=== PATIENT | male | born 1960 | race Caucasian/White ===

== ENCOUNTER 2020-03-17 08:53 | Observation (INO) | payer OTHER, SELFPAY ==
[2020-03-17] VITALS (10 sets, daily range): BP systolic 142–174; BP diastolic 89–105; PULSE 96–130; RESP 14–20; TEMP 36.4–37; O2SAT 95–99; BMI 32.6; BMI 32.5
--- NOTE | 2020-03-17 09:06 | EKG12_ITS ---
Test Reason : DYSRHYTHMIA Blood Pressure : / mmHG Vent. Rate : 122 BPM Atrial Rate : 122 BPM P-R Int : 152 ms QRS Dur : 094 ms QT Int : 332 ms P-R-T Axes : 041 012 003 degrees QTc Int : 473 ms Sinus tachycardia Otherwise normal ECG Confirmed by IKER ELLSWORTH, PENNY ([id number]), sound editor ANGY HUFF ([id number]) on 03/20/2020 8:19:54 AM Referred By: LUIS Confirmed By:PENNY DONG MD
[2020-03-17] MEDS: 0.9% Normal Saline 1,000 ML 1000 ML IV (09:17)
--- NOTE | 2020-03-17 09:18 | ED.VIS.GEN ---
History of Present Illness Chief Complaint: Palpitations Informant: Patient Narrative: Patient is a 59-year-old male with a past medical history of CAD, hypertension who presents to the emergency department for palpitations. He states started yesterday he felt like his heart was racing. He did check it and it got up to 160 at one point. He denies any other associated symptoms including any shortness of breath, fatigue, chest pain. He has never had this happen before in the past. He denies any abdominal pain or nausea/vomiting. No back pain. He did have some bilateral swelling in his legs a few days ago but this has since resolved. No history of DVT/PE. States he might of been drinking a little bit less than normal lately but otherwise has been eating appropriately. Denies any headache or lightheadedness. No vision changes. He has not been ill recently with any fever/chills or any cough, cold, congestion. Past Medical History - Allergies and Home Meds Allergies/Adverse Reactions: Allergies lisinopril Allergy (Verified 03/17/20 08:56) Other Primary Care Physician: Viral Geiger III, MD [Primary Care Provider] - Prior records reviewed: Yes Past Medical History: - - CAD with stent placed, hypertension Smoking Status: Former smoker Alcohol: None Drugs: None - Family History Paternal Family History: Reports: High Cholesterol Review of Systems All systems negative except as indicated General: Denies: Chills, Fever, Sweats Eyes: Denies: Visual changes - bilaterally, Diplopia ENT: Denies: Rhinorrhea, Sore throat Cardiovascular: Reports: Palpitations, Heart racing. Denies: Chest pain Respiratory: Denies: Dyspnea, Cough, Dyspnea on exertion Gastrointestinal: Denies: Abdominal pain, Nausea, Vomiting, Diarrhea, Melena, Hematochezia Genitourinary: Denies: Dysuria, Hematuria, Frequency Musculoskeletal: Denies: Back pain, Extremity Pain Skin: Denies: Rash, Wounds Neurological: Denies: Headache, Weakness, Numbness Physical Exam Vital Signs/Narrative: Vital Signs Temp Pulse Resp BP Pulse Ox 03/17/20 08:54 97.6 F L 130 H 20 H 152/101 H 98 Inital Vital Signs reviewed: Yes General: Well nourished, Well developed, No Acute Distress Head: Normocephalic, Atraumatic Eyes: Perrl, EOMI ENT: Moist mucous membranes, No rhinorrhea Neck: Supple, Nontender Cardiovascular: Regular rhythm, Tachycardia, Murmur Respiratory: No distress, CTA bilaterally, Chest nontender Abdomen: Soft, Nontender, Nondistended, Normal bowel sounds Back: Nontender, Normal Inspection Extremities: Nontender, No edema Skin: Normal color, No rash Neurological: Alert, Oriented x3, Cranial nerves II-XII grossly intact, Normal Strength, Normal Sensation Psychological: Normal affect, Normal Mood Diagnostic/Tx/Re-eval - EKG Initial EKG Interpretation: - - Rate 122 bpm in sinus tachycardia. Normal intervals. Normal axis. No ST elevations or depressions appreciated. No T wave abnormalities. No prior EKG for comparison. - Medical Decision Making Patient presents to the emergency department for palpitations. Upon arrival to the emerge department he is tachycardic. Otherwise no chest pain or shortness of breath. Will obtain basic lab work along with chest x-ray. Physical exam is benign except for the tachycardia. Lab work showed the patient to be hypokalemic. We will replace with IV and oral potassium at this time. Magnesium is slightly low so we will replace this to. Will bring into the hospital for further evaluation and management. He has been stable throughout ED stay. He is agreeable to staying in the hospital at this time. ED Disposition - Plan for ED Patient: Diagnosis: Hypokalemia, Palpitations, Tachycardia Referrals: Viral Geiger III, MD [Primary Care Provider] -
--- NOTE | 2020-03-17 09:20 | RAD_ITS ---
STUDY: X-RAY CHEST REASON FOR EXAM: Male, 59 years old. Chest pain and palpitations x 1 day, stent 5 years ago, -- takes HBP medications TECHNIQUE: Single AP portable view of the chest. COMPARISON: Comparison is made with prior study April 18, 2014. FINDINGS: EKG electrodes are seen. There is elevation of the right hemidiaphragm. Stable calcified granuloma in the right midlung. There is no demonstrated pleural abnormality. Normal size heart. Normal mediastinum and parth. Normal visualized pulmonary arteries. Normal visualized aortic arch and descending thoracic aorta. Normal visualized thoracic spine. Normal visualized ribs, clavicles, and shoulders. Small hiatal hernia. RAD/Chest 1 View (Portable) IMPRESSION: No acute abnormality is seen. Electronically Signed: Paulie Acuña, at 9:51 EDT , Service support ,
[2020-03-17 09:24] LABS: Absolute Lymphocyte Count 1.88 X10^3/uL (0.83-4.51); Absolute Neutrophil Count 4.2 X10^3/uL (2.0-7.7); Basophil# 0.04 X10^3/uL; Basophil% 0.6 % (0-1); Eosinophil# 0.29 X10^3/uL; Eosinophils% 4.2 % (0-5); Hemoglobin 14.1 g/dL (13.0-16.5); Lymphocyte # 1.88 X10^3/ul (4.0); Lymphocyte % 27.1 % (19-41); Mean Corp Hgb Conc 33.6 g/dL (32-36); Mean Corpuscular Volume 83.5 fL (80-94); Mean Platelet Vol. 10.1 fl (6.2-12.0); Monocyte% 7.2 % (0-10); NRBC Flagged by Analyzer 0 % (0-5); Neutrophil % 60.6 % (47-70); Platelet Count 257 K/mm3 (150-450); RBC Distribution Width CV 13.4 % (11.6-14.6); RBC Distribution Width SD 39.8 fl (35.1-43.9); Red Blood Count 5.03 M/mm3 (4.6-6.2); White Blood Count 6.9 K/mm3 (4.4-11.0)
[2020-03-17 09:50] LABS: Anion Gap 8 (5-15); BUN 17 mg/dL (7-18); Calcium,Total 8.9 mg/dL (8.5-10.1); Chloride 102 mmol/L (98-107); Creatinine, Serum 1.13 mg/dL (0.70-1.30); EST Glomerular Filtration Rate 71 mL/min (>60); Est Glom Filt Rate - Afr Amer 85 mL/min (>60); Estimated Creatinine Clearance 65.81 ml/min; Glucose 178 mg/dL (74-106); Magnesium 1.8 mg/dL (1.6-2.6); Potassium 2.6 mmol/L (3.5-5.1); Sodium Level 138 mmol/L (136-145)
[2020-03-17] MEDS: Potassium Chloride 10mEq/100mL 10 MEQ/100 ML IV.SOLN. 100 MEQ IV BOLUS ×2 (10:28→12:51)
--- NOTE | 2020-03-17 11:06 | ECHOCS_ITS ---
Reason For Study: Palps Procedure This was a 2D Doppler, Color Flow transthoracic echocardiogram. The study was technically difficult. Exam performed portable in patient room. Left Ventricle Normal LV size. Left ventricular systolic function is normal. The estimated ejection fraction is 65 %. Stage 1 diastolic dysfunction. No regional wall motion abnormalities noted. Right Ventricle Normal RV size. Normal systolic function. Atria Normal left atrium. Normal right atrium. Mitral Valve Normal mitral valve. Tricuspid Valve Normal tricuspid valve. Aortic Valve Normal aortic valve. Pulmonic Valve Normal pulmonic valve. Great Vessels Normal aortic root. The pulmonary artery is normal size. Normal inferior vena cava. Pericardium/Pleural No pericardial effusion. Medication Performed a rapid injection of agitated mix of 9 cc saline and 1cc air to assess for atrial septal defect. Diluted definity 2ml given slow IV push to enhance endocardial definition. MMode/2D Measurements & Calculations LVIDd: 4.1 cm IVSd: 1.1 cm Ao root diam: 3.1 cm LVIDs: 2.3 cm LVPWd: 0.92 cm RVDd: 3.2 cm FS: 44.3 % LAV(MOD-bp): 40.0 ml LA A4 area: 17.3 cm2 LA dimension(2D): 3.7 cm LAV(MOD-bp) Indexed: 19.5 ml/m2 LAV(MOD-sp2): 32.0 ml LAV(MOD-sp4): 49.1 ml RA A4 area: 9.0 cm2 Doppler Measurements & Calculations MV E max timoteo: 90.7 cm/sec Lat Peak E' Timoteo: 10.9 cm/sec Med Peak E' Timoteo: 6.5 cm/sec MV A max timoteo: 129.2 cm/sec E/E' lat: 8.3 E/E' med: 14.0 MV E/A: 0.70 Ao V2 max: 199.1 cm/sec LV V1 max: 182.5 cm/sec PA V2 max: 166.4 cm/sec Ao max P.9 mmHg LV V1 max P.3 mmHg Interpretation Summary Normal LV size. Left ventricular systolic function is normal. The estimated ejection fraction is 65 %. Stage 1 diastolic dysfunction. Contrast injection was performed. Ordering Physician: Luz Castellanos Referring Physician: ELI Geiger M.D. Performed By: Francheska Rivera RDCS
[2020-03-17] MEDS: 0.9% Normal Saline 1,000 ML 50 ML IV (12:13)
--- NOTE | 2020-03-17 12:49 | HP.PCM_ITS ---
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 He states that he went to bed but had a hard time falling asleep. when he awoke this am his was still feeling his heart racing and was having palpitations. He denies any significant caffeine intake, has had no changes in his meds and denies CP or SOB associated with this. He states that it is just a funny feeling. He has missed no doses of his medications. His CBC was completely normal. His BMP was unremarkable other than a K of 2.6. His Mag was WNL. His troponin was WNL. His EKG showed sinus tachycardia, He was afebrile, sats were 97% on RA and his BP was a bit elevated. Past Medical History Past Medical History (Chronic Problems): Chronic Problems CAD (coronary artery disease) (Chronic) stent RCA Prostate cancer (Chronic) Gout (Chronic) Dyslipidemia (Chronic) HTN (hypertension) (Chronic) Allergies lisinopril Allergy (Verified 03/17/20 08:56) Other Home Medications: Ambulatory Orders Medication Instructions Recorded Allopurinol [Zyloprim] 100 mg PO DAILYCM 04/18/14 Amlodipine [Norvasc] 10 mg PO DAILY 04/18/14 Losartan Potassium [Cozaar] 100 mg PO DAILY 04/18/14 Omeprazole [Prilosec] 40 mg PO DAILY 04/18/14 Aspirin [Aspirin, Baby] 81 mg PO DAILY 03/17/20 Atenolol/Chlorthalidone [Tenoretic 1 tab PO DAILY 03/17/20 100 (beta kym)] Atorvastatin Calcium [Lipitor] 80 mg PO DAILY 03/17/20 Fluticasone Propionate [Flovent 1 puff INHALATION BID 03/17/20 Hfa] Metformin HCl [Glucophage Xr] 500 mg PO BID 03/17/20 Potassium Chloride [Klor-Con M20] 20 meq PO DAILY 03/17/20 Surgical History: - - Stent 2013 cristo [facility] Lives: Spouse/ Significant Other Smoking Status: Former smoker Tobacco Use: Non-smoker Alcohol: None Drugs: None - *Family History Paternal History Items: High Cholesterol Review of Systems Constitutional: Denies: Anorexia, Chills, Fever, Night Sweats, Malaise, Weakness, Weight Change, Fatigue Eyes: Denies: Blurred vision, Cataracts, Conjunctivae Inflammation, Double vision, Drainage, Eyelid Inflammation, Pain, Redness, Vision Change HEENT: Denies: Difficulty Hearing, Difficulty Swallowing, Dysphasia, Ear Pain, Eye Pain, Hard of Hearing, Head Aches, Hearing Changes, Nasal bleeding, Nasal Congestion, Post Nasal Drip, Sinus Congestion, Sinus Drainage, Sore Throat Cardiovascular: Reports: Palpitations. Denies: Chest Pain, Claudication, Chest Pressure, Chest Tightness, Edema, Heaviness, Light Headedness, Orthopnea, Paroxysmal Noc. Dyspnea, Syncope Respiratory: Denies: Cough, Hemoptysis, Pleuritic Pain, Shortness of Breath, Shortness of breath at rest, Shortness of breath upon exertion, Sputum production, Wheezing Gastrointestinal: Denies: Abdominal Pain, Constipation, Diarrhea, Dyspepsia, Hematemesis, Hematochezia, Nausea, Melena, Vomiting Genitourinary: Denies: Dysuria, Frequency Musculoskeletal: Denies: Back Pain, Joint Pain, Joint stiffness, Joint swelling, Joint Tenderness, Neck Pain Skin: Denies: Dryness, Jaundice, Lesions, Pruritis, Rash, Skin Changes, Wounds Neurological: Denies: Balance problems, Blurred vision, Double vision, Change in Speech, Slurred speech, Confusion, Difficulty swallowing, Focal weakness, Headaches, Incoordination, Numbness, Tingling, Tremor, Seizures Psychiatric: Denies: Anxiety, Depression, Homicidal Ideations Endocrine: Denies: Change in Body Habitus, Heat/ Cold Intolerance, Polydipsia Hematologic/ Lymphatic: Denies: Adenopathy, Anemia, Easy Bruising, Easy Bleeding, Petechiae, Purpura VTE Information - Inpt Only VTE Present on Admission: No VTE Mechan Device Prophylaxis: None VTE Pharm Prophylaxis ordered?: No Reason prophylaxis not ordered:: Procedure Not Indicated Patient Problems: Active and Suspected Problems Hypokalemia (Acute) Palpitations (Acute) Tachycardia (Acute) - Physical Exam Vitals/I&O's: Vital Signs Temp Pulse Resp BP Pulse Ox 98.3 F 104 H 16 164/89 H 97 03/17/20 11:14 03/17/20 11:14 03/17/20 11:14 03/17/20 11:14 03/17/20 11:14 Oxygen Flow Rate (L/min) 2 Oxygen Delivery Method Room Air Weight: 94.1 kg Body Mass Index (BMI) 32.5 Intake and Output for Last 24 Hours 03/15/20 03/16/20 03/17/20 23:59 23:59 23:59 Intake Total 1100 / 1100 Balance 1100 / 1100 General: Alert, Oriented x3, Cooperative, No apparent distress, Well developed, Well nourished, - - Middle aged male sitting up in bed, at bedside HEENT: Atraumatic, PERRLA, EOMI, Normocephalic, EAC Clear Oral: Moist Mucosa, No Gingival or Mucosal Lesions/ Ulcerations Neck: Supple, No JVD, Negative Carotid Bruits, Negative Hepatojugular Reflux, No Nodes, No Nuchal Rigidity, Trachea Midline, Thyroid Normal Size and Texture Lungs: Clear to auscultation, Normal air movement, No rhonchi, No wheeze, No rales Cardiovascular: Regular Rhythm, Normal S1, Normal S2, No murmurs, No Ectopic Activity, No rub noted, No Gallop, Tachycardic Abdomen: Bowel Sounds Present, Soft, Non Tender, Non-Distended, No Hepato- splenomegaly, Obese, No hernias noted Extremities: No clubbing, No cyanosis, No edema, Capillary Refill Less than 3 Seconds, Peripheral Pulses Normal Skin: No rashes, No breakdown Musculoskeletal: No Tenderness to Palpation of Joints or Extremities, No Muscle Wasting Lymphatic: No Cervical, Supraclavicular, or Inguinal Adenopathy, Cervical Adenopathy Neurological: Cranial nerves II-XII grossly intact, Motor Exam 5/5 strength throughout, Muscle tone normal, Sensory exam intact to light touch and pain, Coordination normal, - - 3+ reflexes, fine tremor with exam Psych/Mental Status: Normal Affect, Appropriate, Alert and oriented to time, place, person, mood and affect Laboratory Results 03/17/20 09:10: WBC 6.9, RBC 5.03, Hgb 14.1, Hct 42.0, MCV 83.5, MCH 28.0, MCHC 33.6, RDW Std Deviation 39.8, RDW Coeff of Fantasma 13.4, Plt Count 257, MPV 10.1, Immature Gran % (Auto) 0.300, Neut % (Auto) 60.6, Lymph % (Auto) 27.1, [place] % (Auto) 7.2, Eos % (Auto) 4.2, Baso % (Auto) 0.6, Absolute Neuts (auto) 4.2, Absolute Lymphs (auto) 1.88, Nucleated RBC % 0 03/17/20 09:10: Sodium 138, Potassium 2.6 L*, Chloride 102, Carbon Dioxide 28.0, Anion Gap 8, BUN 17, Creatinine 1.13, Estim Creat Clear Calc 65.81, Est GFR (MDRD) Af Amer 85, Est GFR (MDRD) Non-Af 71, BUN/Creatinine Ratio 15.0, Glucose 178 H, Calcium 8.9, Magnesium 1.8, Troponin I < 0.015 03/17/20 09:10: TSH Pending Current Medications Acetaminophen (Tylenol) 650 mg PO Q6H PRN PRN PRN Reason: Pain Score 1-10/Temp > 100.7 F Al Hydroxide/Mg Hydroxide (Mylanta Ii) 30 ml PO Q6H PRN PRN PRN Reason: Gastric Burning [facility] Amlodipine Besylate (Norvasc) 10 mg PO DAILY [facility] Aspirin (Aspirin, Baby) 81 mg PO DAILY [facility] Atenolol/Chlorthalidone (Tenoretic 100 Tablet) 1 tab PO DAILY [facility] Atorvastatin Calcium (Lipitor) 80 mg PO DAILY [facility] Dextrose (D50w Syringe) 0 gm IV X1 PRN; Protocol PRN Reason: Hypoglycemia Glucagon () 1 mg IM .X1 PRN PRN Reason: Hypoglycemia Sodium Chloride () 1,000 mls @ 50 mls/hr IV .Q20H [place] Stop: 03/17/20 23:07 Last Admin: 03/17/20 12:13 Dose: 50 mls/hr Documented by: Sodium Chloride () 250 mls @ 15 mls/hr IV .[id number] PRN PRN Reason: Saline Flush Sodium Chloride () 250 mls @ 15 mls/hr IV .[id number] PRN PRN Reason: Additional IVPB Infusion Losartan Potassium (Cozaar) 100 mg PO DAILY [facility] Melatonin (Melatonin) 3 mg PO QHS PRN PRN PRN Reason: INSOMNIA Metformin HCl (Glucophage Xr) 500 mg PO BID [facility] Non-Formulary Medication (Fluticasone Propionate [Flovent Hfa]) 1 puff inhalation BID [facility] Non-Formulary Medication (Potassium Chloride [Klor-Con M20]) 20 meq PO DAILY [facility] Pantoprazole Sodium (Protonix) 20 mg PO DAILY [facility] Sodium Chloride () 10 - 40 ml IV UD PRN PRN Reason: SALINE FLUSH Assessment/Plan All Active Problems Hypokalemia (Acute) Palpitations (Acute) Tachycardia (Acute) NSTEMI (non-ST elevated myocardial infarction) (Acute) Palpitations/Tachycardia -continue home BB -replace electrolytes -Check Echo -Check TSH -check tox -pt denies drugs or any recent caffeine intake -if persists my need to consider w/u for pheo as BP is up as well Hypokalemia -Mag WNL -2 gm mag given in ED -40 po and 20 IV mag given in ED -repeat BMP later today -continue IVF for now x 12 hrs -BMP in am HTN/HPL/CAD -PCI in 2013 at [facility] -continue Norvasc -continue Atenolol/Chlorthalidone/Losartan DM-2 -Continue Metformin -BGT q AC/HS GERD -PPI Gout -Allopurinol DVT Prophylaxis -low risk and none needed Code Status -Full Inpatient E&M: 06746 Init Hosp L3
[2020-03-17 12:53] LABS: Thyroid Stim Hormone (TSH) 1.48 uIU/mL (0.358-3.74)
[2020-03-17 16:59] LABS: Anion Gap 6 (5-15); BUN 14 mg/dL (7-18); BUN/Creat Ratio 14.4 RATIO (10-20); Calcium,Total 8.8 mg/dL (8.5-10.1); Chloride 108 mmol/L (98-107); Creatinine, Serum 0.97 mg/dL (0.70-1.30); EST Glomerular Filtration Rate 84 mL/min (>60); Est Glom Filt Rate - Afr Amer 101 mL/min (>60); Estimated Creatinine Clearance 76.66 ml/min; Glucose 104 mg/dL (74-106); Potassium 3.2 mmol/L (3.5-5.1); Sodium Level 142 mmol/L (136-145)
[2020-03-17] MEDS: metFORMIN HCl 500 MG Tablet PO (17:40)
[2020-03-17] MEDS: Aspirin 81 MG TAB.CHEW PO (17:41)
[2020-03-17 17:54] LABS: Amphetamine Urine VISTA NEGATIVE (<1000 ng/mL); Barbiturate Urine VISTA NEGATIVE (< 200 ng/mL); Benzodiazepine Urine VISTA NEGATIVE (< 200 ng/mL); Cocaine Urine VISTA NEGATIVE (< 300 ng/mL); Ecstacy Urine VISTA NEGATIVE (< 500 ng/mL); Methadone Urine VISTA NEGATIVE (< 300 ng/mL); PCP Urine VISTA NEGATIVE (< 25 ng/mL); THC Urine VISTA NEGATIVE (< 50 ng/mL); Vista UDS pH Range 6
[2020-03-17] MEDS: Atorvastatin Calcium 80 MG Tablet PO (21:01)
[2020-03-17] MEDS: MELATONIN 3 MG TABLET PO (23:07)
[2020-03-18 02:59] VITALS: PULSE 72
[2020-03-18 03:15] VITALS: BP 151/87; PULSE 78; RESP 12; TEMP 37; O2SAT 96
[2020-03-18 06:43] LABS: Absolute Lymphocyte Count 1.36 X10^3/uL (0.83-4.51); Absolute Neutrophil Count 4.6 X10^3/uL (2.0-7.7); Basophil# 0.04 X10^3/uL; Basophil% 0.6 % (0-1); Eosinophil# 0.22 X10^3/uL; Eosinophils% 3.2 % (0-5); Hematocrit 40.1 % (40-54); Hemoglobin 13.2 g/dL (13.0-16.5); Lymphocyte # 1.36 X10^3/ul (4.0); Lymphocyte % 19.9 % (19-41); Mean Corp Hgb Conc 32.9 g/dL (32-36); Mean Corpuscular Hgb 28.4 pg (27.0-32.0); Mean Corpuscular Volume 86.2 fL (80-94); Mean Platelet Vol. 10.4 fl (6.2-12.0); Monocyte# 0.57 X10^3/uL; Monocyte% 8.3 % (0-10); NRBC Flagged by Analyzer 0 % (0-5); Neutrophil # 4.63 X10^3/uL (2.7-7.7); Neutrophil % 67.7 % (47-70); Platelet Count 237 K/mm3 (150-450); RBC Distribution Width CV 13.4 % (11.6-14.6); RBC Distribution Width SD 41.4 fl (35.1-43.9); Red Blood Count 4.65 M/mm3 (4.6-6.2); White Blood Count 6.8 K/mm3 (4.4-11.0)
[2020-03-18 06:49] VITALS: PULSE 58
[2020-03-18] MEDS: Allopurinol 100 MG Tablet PO (07:59)
[2020-03-18] MEDS: metFORMIN HCl 500 MG Tablet PO (07:59)
[2020-03-18 08:23] LABS: AST(SGOT) 17 U/L (15-37); Alanine Aminotransfer ALT/SGPT 24 U/L (16-61); Albumin, Serum 3.1 g/dL (3.2-5.0); Alkaline Phosphatase 66 U/L (45-117); Anion Gap 9 (5-15); BUN 12 mg/dL (7-18); BUN/Creat Ratio 13.1 RATIO (10-20); Bilirubin, Direct 0.13 mg/dL (0.00-0.30); Calcium,Total 8.2 mg/dL (8.5-10.1); Chloride 107 mmol/L (98-107); Creatinine, Serum 0.92 mg/dL (0.70-1.30); EST Glomerular Filtration Rate 90 mL/min (>60); Est Glom Filt Rate - Afr Amer 109 mL/min (>60); Estimated Creatinine Clearance 80.83 ml/min; Globulin 3.3 g/dL (2.2-4.2); Glucose 98 mg/dL (74-106); Magnesium 2.1 mg/dL (1.6-2.6); Phosphorus 3.2 mg/dL (2.5-4.9); Potassium 3.3 mmol/L (3.5-5.1); Protein, Total 6.4 g/dL (6.4-8.2); Sodium Level 141 mmol/L (136-145)
--- NOTE | 2020-03-18 09:04 | DCINST_ITS ---
- Discharge Diagnoses Current Active Problems: Current Active and Chronic Problems Hypokalemia (Acute) Palpitations (Acute) Tachycardia (Acute) You will use the following diet at home:: Calorie/Carbohydrate Controlled (specify 1200, 1400, etc), Cardiac Your food should be the consistency of: Regular Your liquids should be the consistency of: Regular/Thin Discharge Activity: Return to Normal Activity, No Restrictions May resume sexual activity in: No Restrictions Call your doctor if you observe: Fever of 101 or Higher, Shortness of breath, Dizziness, Fainting spells, Chest pain Additional Instructions: Please call PCP on Friday for repeat basic metabolic profile Allergies/Adverse Reactions: Allergies lisinopril Allergy (Verified 03/17/20 08:56) Other Medications to take at Discharge Allopurinol [Zyloprim] 100 mg PO DAILYCM 04/18/14 Amlodipine [Norvasc] 10 mg PO DAILY 04/18/14 Losartan Potassium [Cozaar] 100 mg PO DAILY 04/18/14 Omeprazole [Prilosec] 40 mg PO DAILY 04/18/14 Aspirin [Aspirin, Baby] 81 mg PO DAILY 03/17/20 Atenolol/Chlorthalidone [Tenoretic 100 (beta kmy)] 1 tab PO DAILY 03/17/20 Atorvastatin Calcium [Lipitor] 80 mg PO DAILY 03/17/20 Fluticasone Propionate [Flovent Hfa] 1 puff INHALATION BID 03/17/20 metFORMIN HCl [Glucophage] 500 mg PO BIDCM 03/17/20 Budesonide Aerosol [Pulmicort Respules] 0.5 mg INHALATION Q12H.RT ampul.neb. 03/18/20 Chlorthalidone [Hygroton] 25 mg PO DAILY tab 03/18/20 Potassium Chloride [Klor-Con M20] 20 meq PO DAILY 30 Days #30 03/18/20 The following prescriptions were given: Potassium Chloride [Klor-Con M20] 20 meq PO DAILY 30 Days #30 Prescription Printed Primary Care Physician: Viral Geiger III, MD [Primary Care Provider] - Please follow up with your Primary Care Physician in: 1 week Test Results: Test results from this visit will be discussed in further detail at your follow- up appointment, if applicable.
--- NOTE | 2020-03-18 09:06 | DS.PCM_ITS ---
Discharge Date and Diagnosis - Problem List Patient Problems: Active and Suspected Problems Hypokalemia (Acute) Palpitations (Acute) Tachycardia (Acute) Date of Admission: 03/17/20 Date of Discharge: 03/18/20 - Primary Discharge Diagnosis Acute Problems: Active Problems Hypokalemia (Acute) Palpitations (Acute) Tachycardia (Acute) - Secondary Discharge Diagnosis Chronic Problems: Chronic Problems CAD (coronary artery disease) (Chronic) stent RCA Prostate cancer (Chronic) Gout (Chronic) Dyslipidemia (Chronic) HTN (hypertension) (Chronic) Hospital Course and Treatment Imaging Results: ECHO 03/17/2020 -Stage 1 Diastolic Dysfunction -EF 65% None Operations: None Procedures: 2-D Echocardiogram Summary of Care Provided: The patient is a 59 year old M who worked outside all day on 03/16 and was feeling well until that evening when he noted palpitations and that his heart was racing. He stated that he went to bed but had a hard time falling asleep. When he awoke on the am of 03/17 his was still feeling his heart racing and was having palpitations. He denied any significant caffeine intake, had no changes in his meds and denied CP or SOB associated with this. He stated that it is just a funny feeling. He has missed no doses of his medications. His CBC was completely normal. His BMP was unremarkable other than a K of 2.6. His Mag was WNL. His troponin was WNL. His EKG showed sinus tachycardia, He was afebrile, sats were 97% on RA and his BP was a bit elevated. [facility] with [facility]. His TSH was assess and was WNL. An ECHO was done and showed and EF of 65% and stage 1 diastolic dysfunction but was otherwise WNL. His K was aggressively replaced and was up to 3.3 today. He was given another 40 mEq of K and his home K dose was increased to 40 mEq daily (had been 20 mEq). He is on chlorthalidone and if his K continues to be an issue I would recommend switching around his antihypertensive regimen. He has been instructed to get a repeat BMP on 03/20/2020 per his PCP and f/u with Dr. Geiger in 1 week for a hospital f/u. All of his sx have resolved and he was d/c home in stable condition. Patient Problems: Active and Suspected Problems Hypokalemia (Acute) Palpitations (Acute) Tachycardia (Acute) Subjective: Pt states that he is feeling much better. Heart is no longer racing and no palpitations. - Physical Exam Vitals/I&O's: Vital Signs Temp Pulse Resp BP Pulse Ox 98.6 F 58 L 12 151/87 H 96 03/18/20 03:15 03/18/20 06:49 03/18/20 03:15 03/18/20 03:15 03/18/20 03:15 Oxygen Flow Rate (L/min) 2 Oxygen Delivery Method Room Air Weight: 94.1 kg Body Mass Index (BMI) 32.5 Intake and Output for Last 24 Hours 03/16/20 03/17/20 03/18/20 23:59 23:59 23:59 Intake Total 1804 / 1804 955 / 955 Balance 1804 / 1804 955 / 955 General: Alert, Oriented x3, Cooperative, No apparent distress, Well developed, Well nourished, - - Py i HEENT: Atraumatic, PERRLA, EOMI, Normocephalic, EAC Clear Oral: Moist Mucosa, No Gingival or Mucosal Lesions/ Ulcerations Neck: Supple, No Nodes, No Nuchal Rigidity, Trachea Midline, Thyroid Normal Size and Texture Lungs: Clear to auscultation, Normal air movement, No rhonchi, No wheeze, No rales Cardiovascular: Regular rate, Regular Rhythm, Normal S1, Normal S2, No murmurs, No Ectopic Activity, No rub noted, No Gallop Abdomen: Bowel Sounds Present, Soft, Non Tender, Non-Distended, Obese, No hernias noted Extremities: No clubbing, No cyanosis, No edema, Capillary Refill Less than 3 Seconds Skin: No rashes Musculoskeletal: No Tenderness to Palpation of Joints or Extremities, No Muscle Wasting Lymphatic: No Cervical, Supraclavicular, or Inguinal Adenopathy Neurological: Cranial nerves II-XII grossly intact, Neuro grossly intact, Muscle tone normal, Coordination normal Psych/Mental Status: Normal Affect, Appropriate, Alert and oriented to time, place, person, mood and affect Laboratory Results 03/17/20 09:10: WBC 6.9, RBC 5.03, Hgb 14.1, Hct 42.0, MCV 83.5, MCH 28.0, MCHC 33.6, RDW Std Deviation 39.8, RDW Coeff of Fantasma 13.4, Plt Count 257, MPV 10.1, Immature Gran % (Auto) 0.300, Neut % (Auto) 60.6, Lymph % (Auto) 27.1, [place] % (Auto) 7.2, Eos % (Auto) 4.2, Baso % (Auto) 0.6, Absolute Neuts (auto) 4.2, Absolute Lymphs (auto) 1.88, Nucleated RBC % 0 03/17/20 09:10: Sodium 138, Potassium 2.6 L*, Chloride 102, Carbon Dioxide 28.0, Anion Gap 8, BUN 17, Creatinine 1.13, Estim Creat Clear Calc 65.81, Est GFR (MDRD) Af Amer 85, Est GFR (MDRD) Non-Af 71, BUN/Creatinine Ratio 15.0, Glucose 178 H, Calcium 8.9, Magnesium 1.8, Troponin I < 0.015 03/17/20 09:10: TSH 1.48 03/17/20 13:45: Urine Opiates Screen NEGATIVE, Urine Methadone Screen NEGATIVE, Ur Barbiturates Screen NEGATIVE, Ur Phencyclidine Scrn NEGATIVE, Ur Amphetamines Screen NEGATIVE, U Methamphetamin-MDMA NEGATIVE, U Benzodiazepines Scrn NEGATIVE, Urine Cocaine Screen NEGATIVE, U Cannabinoids Screen NEGATIVE, Ur Drug Screen Comment 03/17/20 15:28: Sodium Cancelled, Potassium Cancelled, Chloride Cancelled, Carbon Dioxide Cancelled, Anion Gap Cancelled, BUN Cancelled, Creatinine Cancelled, Estim Creat Clear Calc Cancelled, Est GFR (MDRD) Af Amer Cancelled, Est GFR (MDRD) Non-Af Cancelled, BUN/Creatinine Ratio Cancelled, Glucose Cancelled, Calcium Cancelled 03/17/20 16:15: Sodium 142, Potassium 3.2 L, Chloride 108 H, Carbon Dioxide 28.0, Anion Gap 6, BUN 14, Creatinine 0.97, Estim Creat Clear Calc 76.66, Est GFR (MDRD) Af Amer 101, Est GFR (MDRD) Non-Af 84, BUN/Creatinine Ratio 14.4, Glucose 104, Calcium 8.8 03/18/20 05:15: WBC 6.8, RBC 4.65, Hgb 13.2, Hct 40.1, MCV 86.2, MCH 28.4, MCHC 32.9, RDW Std Deviation 41.4, RDW Coeff of Fantasma 13.4, Plt Count 237, MPV 10.4, Immature Gran % (Auto) 0.300, Neut % (Auto) 67.7, Lymph % (Auto) 19.9, [place] % (A uto) 8.3, Eos % (Auto) 3.2, Baso % (Auto) 0.6, Absolute Neuts (auto) 4.6, Absolute Lymphs (auto) 1.36, Nucleated RBC % 0 03/18/20 05:15: Sodium 141, Potassium 3.3 L, Chloride 107, Carbon Dioxide 25.0, Anion Gap 9, BUN 12, Creatinine 0.92, Estim Creat Clear Calc 80.83, Est GFR (MDRD) Af Amer 109, Est GFR (MDRD) Non-Af 90, BUN/Creatinine Ratio 13.1, Glucose 98, Calcium 8.2 L, Phosphorus 3.2, Magnesium 2.1, Total Bilirubin 0.50, Direct Bilirubin 0.13, AST 17, ALT 24, Alkaline Phosphatase 66, Total Protein 6.4, Albumin 3.1 L, Globulin 3.3 Current Medications Acetaminophen (Tylenol) 650 mg PO Q6H PRN PRN PRN Reason: Pain Score 1-10/Temp > 100.7 F Al Hydroxide/Mg Hydroxide (Mylanta Ii) 30 ml PO Q6H PRN PRN PRN Reason: Gastric Burning [facility] Admin: 03/18/20 07:59 Dose: 100 mg Documented by: Amlodipine Besylate (Norvasc) 10 mg PO DAILY [facility] Aspirin (Aspirin, Baby) 81 mg PO DAILY@1700 [facility] Last Admin: 03/17/20 17:41 Dose: 81 mg Documented by: Atenolol (Tenormin (Beta Vishal)) 100 mg PO DAILY [facility] Atorvastatin Calcium (Lipitor) 80 mg PO DAILY@2200 [facility] Last Admin: 03/17/20 21:01 Dose: 80 mg Documented by: Budesonide (Pulmicort Aerosol) 0.5 mg INHALATION Q12H.RT [facility] Last Admin: 03/18/20 07:28 Dose: Not Given Documented by: Chlorthalidone (Hygroton) 25 mg PO DAILY [facility] Dextrose (D50w Syringe) 0 gm IV X1 PRN; Protocol PRN Reason: Hypoglycemia Glucagon () 1 mg IM .X1 PRN PRN Reason: Hypoglycemia Sodium Chloride () 250 mls @ 15 mls/hr IV .[id number] PRN PRN Reason: Saline Flush Sodium Chloride () 250 mls @ 15 mls/hr IV .[id number] PRN PRN Reason: Additional IVPB Infusion Losartan Potassium (Cozaar) 100 mg PO DAILY [facility] Melatonin (Melatonin) 3 mg PO QHS PRN PRN PRN Reason: INSOMNIA Last Admin: 03/17/20 23:07 Dose: 3 mg Documented by: Metformin HCl (Glucophage) [facility] Last Admin: 03/18/20 07:59 Dose: 500 mg Documented by: Pantoprazole Sodium (Protonix) 20 mg PO DAILY [facility] Potassium Chloride (K-Dur) [facility]q [facility] Last Admin: 03/18/20 07:59 Dose: 20 meq Documented by: Sodium Chloride () 10 - 40 ml IV UD PRN PRN Reason: SALINE FLUSH Discharge Activity: Return to Normal Activity, No Restrictions May resume sexual activity in: No Restrictions Call your doctor if you observe: Fever of 101 or Higher, Shortness of breath, Dizziness, Fainting spells, Chest pain Home Medications: Medications to take at Discharge Allopurinol [Zyloprim] 100 mg PO DAILY 04/18/14 Amlodipine [Norvasc] 10 mg PO DAILY 04/18/14 Losartan Potassium [Cozaar] 100 mg PO DAILY 04/18/14 Omeprazole [Prilosec] 40 mg PO DAILY 04/18/14 Aspirin [Aspirin, Baby] 81 mg PO DAILY 03/17/20 Atenolol/Chlorthalidone [Tenoretic 100 (beta vishal)] 1 tab PO DAILY 03/17/20 Atorvastatin Calcium [Lipitor] 80 mg PO DAILY 03/17/20 Fluticasone Propionate [Flovent Hfa] 1 puff INHALATION BID 03/17/20 metFORMIN HCl [Glucophage] 500 mg PO BIDCM 03/17/20 Budesonide Aerosol [Pulmicort Respules] 0.5 mg INHALATION Q12H.RT ampul.neb. 03/18/20 Chlorthalidone [Hygroton] 25 mg PO DAILY tab 03/18/20 Potassium Chloride [Klor-Con M20] 20 meq PO DAILY 30 Days #30 03/18/20 Following Prescrptions Were Given to Patient: Potassium Chloride [Klor-Con M20] 20 meq PO DAILY 30 Days #30 Prescription Printed Primary Care Physician: Viral Geiger III, MD [Primary Care Provider] - Please follow up with your Primary Care Physician in: 1 week Medical Necessity - Tobacco Use Smoking Status: Former smoker Tobacco Use: Non-smoker Meaningful Use Info Meaningful Use Diagnoses (Choose all that apply): None applicable Inpatient E&M: [id number] [facility]
[2020-03-18 09:35] VITALS: BP 162/102; PULSE 79; RESP 16; TEMP 36.6; O2SAT 95
[2020-03-18] MEDS: Pantoprazole Sodium 20 MG Tablet PO (09:42)
[2020-03-18] MEDS: Chlorthalidone 50 MG Tablet 25 MG PO (09:42)
[2020-03-18] MEDS: Losartan Potassium 100 MG Tablet PO (09:43)
[2020-03-18] MEDS: amLODIPine 10 MG Tablet PO (09:43)
[2020-03-18] MEDS: Atenolol 50 MG Tablet 100 MG PO (09:43)
== END 2020-03-18 09:05 | disposition home or self-care (01) ==
LOC: ED 09:40 → PCU 10:50
PROVIDERS: Admitting Provider Internal Medicine; Emergency Provider Emergency Medicine; PCP Family Medicine; Visit Provider Internal Medicine
DX: E87.6 Hypokalemia (principal); R00.0 Tachycardia, unspecified; R00.2 Palpitations; I10 Essential (primary) hypertension; I25.10 Atherosclerotic heart disease of native coronary artery without angina pectoris; E78.5 Hyperlipidemia, unspecified; M10.9 Gout, unspecified; E11.9 Type 2 diabetes mellitus without complications; Z85.46 Personal history of malignant neoplasm of prostate; Z79.899 Other long term (current) drug therapy; Z79.82 Long term (current) use of aspirin; Z87.891 Personal history of nicotine dependence
CPT/HCPCS: 36415; 71045; 80048; 80076; 80307; 83735; 84100; 84443; 84484; 85025; 93005; 93306; 96360; 96361; 99218; 99251; 99285; J7030; Q9957; A4216; C8929; G0378; G0463

== ENCOUNTER 2021-06-19 19:01 | Emergency (ER) | payer OTHER, SELFPAY ==
[2021-06-19 19:01] VITALS: BP 188/99; PULSE 92; RESP 18; TEMP 36.6; O2SAT 98; BMI 34.4
--- NOTE | 2021-06-19 19:20 | CT_ITS ---
STUDY: CT BRAIN WITHOUT CONTRAST REASON FOR EXAM: Male, 60 years old. Headache RADIATION DOSAGE (If Supplied By Facility): CTDIvol = ( 44.99 ) mGy, DLP = ( 745.49 ) mGycm TECHNIQUE: Transaxial CT imaging of the brain was performed without administration of intravenous contrast material. Individualized dose optimization techniques were used for this CT. COMPARISON: No relevant priors. FINDINGS: Normal soft tissue structures. Normal calvarium. Normal size ventricles and extra-axial spaces for the patient''s age. Normal white matter tracts of the cerebral hemispheres. Normal basal ganglia and thalami. Normal brainstem. Normal cerebellum. There is no intracranial hemorrhage. There are no findings of an acute ischemic infarction. There are rounded opacities within the maxillary sinuses consistent with mucous retention cysts or polyps. There is mild opacification of the ethmoid and sphenoid sinuses consistent with a history of sinusitis. CT/Brain/Head without Contrast IMPRESSION: No acute intracranial process. Mild opacification of the ethmoid and maxillary sinuses consistent with a history of sinusitis. Maxillary sinus mucous retention cysts or polyps. Electronically Signed: Marifer Gleason MD at 20:21 EDT Tel , Service support ,
[2021-06-19] MEDS: Metoclopramide 10 MG/2 ML Vial IV (19:49)
[2021-06-19] MEDS: DiphenhydrAMINE 50 MG/ML Syringe 25 MG IV (19:49)
[2021-06-19 21:06] VITALS: BP 145/97; PULSE 79; RESP 16; O2SAT 95
[2021-06-19 21:23] VITALS: BP 136/90; PULSE 81; RESP 18; O2SAT 98
--- NOTE | 2021-06-19 22:53 | EDS_ITS ---
HPI History of Present Illness Chief Complaint: Headache Narrative Narrative: 60-year-old male with history of hypertension presenting with a headache. He states that he was walking around his yard yesterday when he bent over and it felt like the top of his head was going to pop off. He states that after this even in the house and it got better but has been persistent since yesterday. He has no visual complaints, dizziness, lightheadedness, nausea, chest pain. Has not had a fever or chills. He denies neck pain. He took ibuprofen 2 hours prior to arrival and his headache is improving. No history of migraine headache. No history of trauma. He was concerned his blood pressure is elevated however after monitoring him his blood pressure. [facility] Medical History Diabetes Heart attack HTN (hypertension) Home Medications allopurinol 100 mg PO DAILYCM 04/18/14 [History Last Taken 03/17/20] amlodipine 10 mg PO DAILY 04/18/14 [History Last Taken 03/17/20] losartan [Cozaar] 100 mg PO DAILY 04/18/14 [History Last Taken 03/17/20] omeprazole 40 mg PO DAILY 04/18/14 [History Last Taken 03/17/20] aspirin 81 mg PO DAILY 03/17/20 [History Last Taken 03/16/20] atenolol-chlorthalidone 1 tab PO DAILY 03/17/20 [History Last Taken 03/17/20] atorvastatin 80 mg PO DAILY 03/17/20 [History Last Taken 03/16/20] fluticasone propionate 1 puff INHALATION BID 03/17/20 [History Last Taken 03/17/20] metformin 500 mg PO BIDCM 03/17/20 [History Last Taken Unknown] Potassium Chloride [Klor-Con M20] 20 meq PO DAILY 30 Days #30 03/18/20 [Rx Last Taken Unknown] budesonide 0.5 mg INHALATION Q12H.RT ampul.neb. 03/18/20 [Rx Last Taken Unknown] chlorthalidone 25 mg PO DAILY tab 03/18/20 [Rx Last Taken Unknown] Allergy/AdvReac Type Severity Reaction Status Date / Time lisinopril Allergy Other Verified 03/17/20 08:56 Surgical History Stented coronary artery Social History Smoking Status: Former smoker ROS ROS ED Review of Systems ROS Unobtainable: due to encephalopathy Constitutional Constitutional ED: Denies chills or fever(s) Eyes Eyes: Denies blurry vision or change in vision ENT ENT ED: Denies rhinorrhea or sore throat Cardiovascular Cardiovascular: Denies chest pain or palpitations Respiratory/Chest Respiratory/Chest: Denies cough or dyspnea Gastrointestinal Gastrointestinal: Denies abdominal pain or nausea Genitourinary Genitourinary ED: Denies dysuria or hematuria Musculoskeletal Musculoskeletal: Denies arthralgias or myalgias Integumentary Denies Abrasions or rash Neurologic Neurologic: Reports headache(s); Denies paresthesias EXAM Physical Exam Const Vital Signs: 06/19/21 19:01 06/19/21 21:06 06/19/21 21:23 Temperature 97.9 F Temperature Source Temporal Pulse Rate 92 79 81 Respiratory Rate 18 16 18 Blood Pressure 188/99 H 145/97 H 136/90 H Blood Pressure Mean 128 113 Pulse Ox 98 95 98 Oxygen Delivery Method Room Air Room Air Positive well nourished General Appearance ED: NAD; Negative for pallor HEENT Reports normocephalic, head/scalp atraumatic and moist mucous membranes Eyes PERRL and EOMs intact bilaterally Neck no lymphadenopathy and supple Chest Wall inspection of chest normal and palpation of chest normal Resp normal respiratory effort and clear to auscultation bilaterally Auscultation: Negative for rales, rhonchi or wheezes Cardio regular rate and regular rhythm GI normal to inspection, nondistended, normoactive bowel sounds and non-distended Auscultation: normoactive bowel sounds Palpation: soft Narrative: Deferred Back/Spine Cervical Spine: Negative for cervical spine tenderness Extremity normal to inspection General Extremety ED: Yes edema and tenderness General Extremity: edema Neuro oriented x3 and CN's II-XII intact bilaterally Sensorium / Orientation: alert Motor Exam: strength 5/5 throughout Psych mental status grossly normal Attitude: No agitated Skin no rashes or lesions noted and no wounds General Skin Exam: Negative for jaundice or pallor MDM MDM MDM Narrative Medical decision making narrative: Patient with headache for 24 hours. He states that initially came on fairly abruptly it has been steady since then. He took ibuprofen prior to arrival his headache is now improving. Patient was given Reglan and Benadryl. His headache had resolved. His blood pressure is now 136/90 it is less likely the cause of his headache. CT brain is negative for acute intracranial findings. Patient feels as if he can be discharged home now. I counseled him to keep a blood pressure diary at home and follow-up with his PCP if his blood pressures are still elevated he may need a medication change. I do not believe he needs anything acutely changed today. Impression: 1. Headache Radiography Diagnostic Testing: Clinical Impression(s) from Imaging Studies Brain CT 06/19/21 19:20 IMPRESSION: No acute intracranial process. Mild opacification of the ethmoid and maxillary sinuses consistent with a history of sinusitis. Maxillary sinus mucous retention cysts or polyps. Electronically Signed: Marifer Gleason MD at 20:21 EDT Tel , Service support , Discharge Plan Triage Chief Complaint: Headache ED Provider: Binh Crespo Dx/Rx/DC Orders Instructions: ED Headache Unspecified Prescriptions: No Action allopurinol 100 MG tablet 100 mg PO DAILYCM RF: 0 amlodipine 10 MG tablet 10 mg PO DAILY RF: 0 omeprazole 20 MG capsule 40 mg PO DAILY RF: 0 losartan [Cozaar] 100 MG tablet 100 mg PO DAILY RF: 0 atenolol-chlorthalidone 100-25 mg tablet 1 tab PO DAILY RF: 0 fluticasone propionate 110 mcg/actuation HFA aerosol inhaler 1 puff inhalation BID RF: 0 atorvastatin 80 mg tablet 80 mg PO DAILY RF: 0 aspirin 81 MG tablet,chewable 81 mg PO DAILY RF: 0 metformin 500 MG tablet 500 mg PO BIDCM RF: 0 chlorthalidone 50 MG tablet 25 mg PO DAILY RF: 0 budesonide 0.5 MG/2 ML suspension for nebulization 0.5 mg inhalation Q12H.RT RF: 0 Potassium Chloride [Klor-Con M20] 20 MEQ Tab.Er.Prt 20 meq PO DAILY 30 Days Qty: 30 RF: 0 Primary Care Provider: Care Physician,No Primary Referrals: Emmett Vanegas MD [NON-STAFF] - As Needed Care Physician,No Primary [Primary Care Provider] - Disposition Disposition: Home, Self Care Discharge Date/Time: 06/19/21 21:24
== END 2021-06-19 21:24 | disposition home or self-care (01) ==
PROVIDERS: Emergency Provider Student in an Organized Health Care Education/Training Program
DX: R51.9 Headache, unspecified (principal); E11.9 Type 2 diabetes mellitus without complications; I10 Essential (primary) hypertension; Z79.84 Long term (current) use of oral hypoglycemic drugs; Z79.899 Other long term (current) drug therapy; Z87.891 Personal history of nicotine dependence
CPT/HCPCS: 70450; 96374; 96375; 99285; A4216

== ENCOUNTER 2023-11-17 12:20 | Inpatient (IN) | payer OTHER, SELFPAY ==
[2023-11-17] VITALS (7 sets, daily range): BP systolic 127–160; BP diastolic 76–103; PULSE 61–94; RESP 16–18; TEMP 36.1–36.6; O2SAT 96–98; BMI 31.6; BMI 31.9
--- NOTE | 2023-11-17 12:41 | EKG12_ITS ---
Test Reason : HIGH BLOOD SUGAR Blood Pressure : / mmHG Vent. Rate : 062 BPM Atrial Rate : 062 BPM P-R Int : 178 ms QRS Dur : 090 ms QT Int : 416 ms P-R-T Axes : 031 027 030 degrees QTc Int : 422 ms Normal sinus rhythm Normal ECG Confirmed by Too Hickey ([id number]), assistant production editor SALVADOR MISHRA ([id number]) on 11/18/2023 11:16:11 AM Referred By: Confirmed By:Too Hickey
[2023-11-17] MEDS: 0.9% Normal Saline (1000mL) 1,000 ML 1000 ML IV (13:00)
[2023-11-17 13:27] LABS: Bedside Glucose > 500 mg/dL (74-106)
[2023-11-17 13:28] LABS: Blood Gas Specimen Type VEN; O2 Delivery Device Not entered; SITE Not entered; VBG BASE EXCESS 0 mmol/L (-1.0-3.5); VBG Bicarbonate 24 mmol/L (22-26); VBG PO2 67 mmHg (25-40); VBG SO2 93 % (50-70); VBG TCO2 26 mmol/L (23-33); VBG pCO2 37.7 mmHg (41-51); VBG pH 7.42 (7.32-7.42)
[2023-11-17 13:37] LABS: Absolute Neutrophil Count 8.4 X10^3/uL (2.0-7.7); Basophil# 0.07 X10^3/uL; Basophil% 0.7 % (0-1); Eosinophil# 0.11 X10^3/uL; Hematocrit 44.7 % (40-54); Hemoglobin 15.1 g/dL (13.0-16.5); Lymphocyte % 13.9 % (19-41); Mean Corp Hgb Conc 33.8 g/dL (32-36); Mean Corpuscular Hgb 27.2 pg (27.0-32.0); Mean Corpuscular Volume 80.4 fL (80-94); Mean Platelet Vol. 11.1 fl (6.2-12.0); Monocyte# 0.62 X10^3/uL; Monocyte% 5.8 % (0-10); NRBC Flagged by Analyzer 0 % (0-5); Neutrophil # 8.42 X10^3/uL (2.7-7.7); Neutrophil % 78.2 % (47-70); Platelet Count 314 K/mm3 (150-450); RBC Distribution Width CV 12.6 % (11.6-14.6); RBC Distribution Width SD 36.2 fl (35.1-43.9); Red Blood Count 5.56 M/mm3 (4.6-6.2); White Blood Count 10.8 K/mm3 (4.4-11.0)
[2023-11-17 14:07] LABS: AST(SGOT) 20 U/L (15-37); Alanine Aminotransfer ALT/SGPT 32 U/L (16-61); Albumin, Serum 3.6 g/dL (3.2-5.0); Alkaline Phosphatase 78 U/L (45-117); Anion Gap 11 (5-15); BUN 31 mg/dL (7-18); BUN/Creat Ratio 16.6 RATIO (10-20); Calcium,Total 9.3 mg/dL (8.5-10.1); Chloride 92 mmol/L (98-107); Creatinine, Serum 1.87 mg/dL (0.70-1.30); EST Glomerular Filtration Rate 39 mL/min (>60); Est Glom Filt Rate - Afr Amer 47 mL/min (>60); Estimated Creatinine Clearance 43.66 ml/min; Globulin 3.6 g/dL (2.2-4.2); Glucose 587 mg/dL (74-106); Potassium 4.3 mmol/L (3.5-5.1); Protein, Total 7.2 g/dL (6.4-8.2); Sodium Level 131 mmol/L (136-145)
[2023-11-17 14:20] LABS: Bacteria 0 SEEN /hpf (None Seen); Mucous, Urine 0 SEEN /hpf (<or=2+); Red Blood Cells-Urine 0 SEEN /hpf (0-5); Squamous Epithelial Cells - UA 0 SEEN /hpf (0-5); White Blood Cells 0 SEEN /hpf (0-5)
[2023-11-17 14:23] LABS: Color, Urine Yellow (Yellow); Glucose, Dipstick 1000 mg/dl (Normal); Ketone-Dipstick 50 mg/dl (Negative); Leukocyte Esterase-Dipstick Negative /ul (Negative); Nitrite-Dipstick Negative (Negative); Occult Blood-Urine Negative /ul (Negative); Protein-Dipstick 30 mg/dl (Negative); Urine Bilirubin Dipstick Negative (Negative); Urine Clarity Sl. Cloudy (Clear); Urine Urobilinogen Normal (Normal)
[2023-11-17 14:54] LABS: Bedside Glucose > 500 mg/dL (74-106)
--- NOTE | 2023-11-17 14:54 | EDS_ITS ---
HPI History of Present Illness Chief Complaint: Hyperglycemia Informant: patient Narrative Narrative: Patient is a 63-year-old male with history of hypertension, hyperlipidemia, coronary artery disease and diabetes (on metformin), his last A1c was 8.4 in July 2023. He is presented to the emergency room today for increased fatigue, dry mouth, thirst and today developed nausea and had episode of vomiting. He notes he had decreased bowel movements. States he had about 20 pound weight loss. Checked his blood sugar was in the 500s and came to the ER for further evaluation. Denies any chest pain, difficulty breathing, fever or flulike symptoms. No other complaints or concerns at this time. Patient states his last doctors visit he had gone down on metformin because of GI side effects and his doctor had recommended Ozempic but he wanted to try weight loss and diet changes before going on any further medication. Is never been on insulin before. [facility] Medical History Diabetes Heart attack HTN (hypertension) Home Medications allopurinol 100 mg tablet 100 mg PO DAILYCM Gout 04/18/14 [History Last Taken 03/17/20] amlodipine 10 mg tablet 10 mg PO DAILY blood pressure 04/18/14 [History Last Taken 03/17/20] aspirin 81 mg chewable tablet 81 mg PO DAILY heart 03/17/20 [History Last Taken 03/16/20] atenolol 100 mg-chlorthalidone 25 mg tablet 1 tab PO DAILY Blood pressure 03/17/20 [History Last Taken 03/17/20] atorvastatin 80 mg tablet 80 mg PO DAILY Cholesterol 03/17/20 [History Last Taken 03/16/20] metformin 500 mg tablet 1,000 mg PO BIDCM 03/17/20 [History Last Taken Unknown] chlorthalidone 50 mg tablet 25 mg (1/2 x 50 mg) PO DAILY 03/18/20 [Rx Last Taken Unknown] losartan 50 mg tablet 100 mg PO DAILY 11/17/23 [History Last Taken Unknown] omeprazole 40 mg capsule,delayed release 40 mg PO DAILY 11/17/23 [History Last Taken Unknown] potassium chloride 20 mEq tablet,extended release(part/cryst) (Klor-Con M) 20 meq PO DAILY 11/17/23 [History Last Taken Unknown] Allergy/AdvReac Type Severity Reaction Status Date / Time lisinopril Allergy Other Verified 11/17/23 12:24 Surgical History Stented coronary artery Social History Smoking Status: Former smoker ROS ROS ED Constitutional Constitutional ED: Reports weight loss; Denies chills or fever(s) Eyes Eyes: Denies blurry vision ENT ENT ED: Denies sore throat Cardiovascular Cardiovascular: Denies chest pain Respiratory/Chest Respiratory/Chest: Denies dyspnea or sputum Gastrointestinal Gastrointestinal: Reports nausea and vomiting; Denies abdominal pain, constipation or diarrhea Genitourinary Genitourinary ED: Reports urinary frequency; Denies dysuria Musculoskeletal Musculoskeletal: Denies arthralgias or myalgias Integumentary Denies rash Neurologic Neurologic: Denies headache(s), paresthesias or weakness Endocrine Endocrinology: Reports polydipsia and polyuria EXAM Physical Exam Const Vital Signs: 11/17/23 12:21 11/17/23 12:58 11/17/23 13:22 Temperature 97 F L Temperature Source Temporal Pulse Rate 61 94 Respiratory Rate 16 Respiratory Effort Normal Respiratory Pattern Normal Blood Pressure 146/103 H 144/94 H Blood Pressure Mean 117 110 Pulse Ox 97 Oxygen Delivery Method Room Air Positive well nourished and well developed General Appearance ED: well developed and NAD HEENT Reports dry mucous membranes Mouth ED: Yes dry mucous membranes Mouth: dry mucous membranes Eyes EOMs intact bilaterally Neck supple and no JVD Chest Wall inspection of chest normal and palpation of chest normal Resp normal respiratory effort and clear to auscultation bilaterally Cardio regular rate, regular rhythm and no murmurs GI normal to inspection, nondistended, normoactive bowel sounds and non-tender Inspection: Negative for abdominal distention Extremity normal to inspection Neuro oriented x3 and no sensory deficits noted Motor Exam: strength 5/5 throughout; Negative for general weakness Psych mental status grossly normal Skin no rashes or lesions noted and no wounds MDM MDM MDM Narrative Medical decision making narrative: Patient is evaluated for generalized malaise for 2 to 3 weeks as well as elevated blood glucose. Had a previously high A1c but is not on anything be sides metformin for his diabetes. Suspect his symptoms are associate with hypoglycemia and intravascular depletion I will obtain workup including EKG and lab work as well as urinalysis. He is hyperglycemic with a blood glucose greater than 500 so a VBG and ketones are added on as well. Workup is remarkable for hyperglycemia with glucose of 587, mild pseudohyponatremia with a sodium of 131, elevated creatinine of 1.87 (patient's baseline creatinine is 1.1 and was normal in August 2023. Patient is given a liter of IV fluid in the emergency room. EKG does not show any acute ischemic process and urinalysis shows glucosuria and mild ketones. VBG has a normal pH as ketones are negative. I do not think he has DKA or HH NK. Do not think he needs an insulin drip or ICU evaluation. Given his ISHAN will admit for further fluids and monitoring of his kidneys. He is given 16 units of insulin in the ER as his glucose is still around 500 after a liter of IV fluid. Case discussed with my physician, Dr. Moore. History & Record Review Additional record(s) reviewed:: Prior outpatient record Lab Data Attestation: I reviewed the patient's lab results. Labs: Laboratory Results - last 24 hr 11/17/23 11/17/23 11/17/23 12:39 12:55 12:55 WBC Cancelled Corrected WBC Cancelled RBC Cancelled Hgb Cancelled Hct Cancelled MCV Cancelled MCH Cancelled MCHC Cancelled RDW Std Deviation Cancelled RDW Coeff of Fantasma Cancelled Plt Count Cancelled MPV Cancelled Immature Gran % (Auto) Cancelled Neut % (Auto) Cancelled Lymph % (Auto) Cancelled [place] % (Auto) Cancelled Eos % (Auto) Cancelled Baso % (Auto) Cancelled Absolute Neuts (auto) Cancelled Absolute Lymphs (auto) Cancelled Total Counted Cancelled Neutrophils % (Manual) Cancelled Band Neutrophils % Cancelled Lymphocytes % (Manual) Cancelled Monocytes % (Manual) Cancelled Eosinophils % (Manual) Cancelled Basophils % (Manual) Cancelled Metamyelocytes % Cancelled Myelocytes % Cancelled Promyelocytes % Cancelled Blast Cells % Cancelled Plasma Cell % (Manual) Cancelled Other Cells % Cancelled Nucleated RBC % Cancelled Nucleated RBCs/100 WBC Cancelled Differential Comment Cancelled Diff Path Review Cancelled Hypersegmented Neuts Cancelled Atypical Lymphocytes Cancelled Reactive Lymphocytes Cancelled Smudge Cells Cancelled Toxic Granulation Cancelled Toxic Vacuolation Cancelled Dohle Bodies Cancelled Norma Rods Cancelled Platelet Estimate Cancelled Plt Morphology Comment Cancelled RBC Morphology Cancelled Cancelled Polychromasia Cancelled Hypochromasia Cancelled Basophilic Stippling Cancelled Anisocytosis Cancelled Microcytosis Cancelled Macrocytosis Cancelled Spherocytes Cancelled Sickle Cells Cancelled Target Cells Cancelled Tear Drop Cells Cancelled Ovalocytes Cancelled Stomatocytes Cancelled [place] Bodies Cancelled Kirk Cells Cancelled Bite Cells Cancelled Crenated Cell Cancelled Acanthocytes (Spur) Cancelled Rouleaux Cancelled Schistocytes Cancelled Sodium Cancelled Potassium Cancelled Chloride Cancelled Carbon Dioxide Cancelled Anion Gap Cancelled BUN Cancelled Creatinine Cancelled Estim Creat Clear Calc Cancelled Est GFR (MDRD) Af Amer Cancelled Est GFR (MDRD) Non-Af Cancelled BUN/Creatinine Ratio Cancelled Glucose Cancelled Calcium Cancelled Total Bilirubin Cancelled AST Cancelled ALT Cancelled Alkaline Phosphatase Cancelled Total Protein Cancelled Albumin Cancelled Globulin Cancelled Albumin/Globulin Ratio Cancelled Urine Color Urine Clarity Urine pH Ur Specific [place] Urine Protein Urine Glucose (UA) Urine Ketones Urine Occult Blood Urine Nitrite Urine Bilirubin Urine Urobilinogen Ur Leukocyte Esterase Urine RBC Urine WBC Ur Squamous Epith Cells Urine Bacteria Urine Mucus Acetone Level POC Glucose > 500 H* 11/17/23 11/17/23 13:15 14:05 WBC 10.8 Corrected WBC RBC 5.56 Hgb 15.1 Hct 44.7 MCV 80.4 MCH 27.2 MCHC 33.8 RDW Std Deviation 36.2 RDW Coeff of Fantasma 12.6 Plt Count 314 MPV 11.1 Immature Gran % (Auto) 0.400 Neut % (Auto) 78.2 H Lymph % (Auto) 13.9 L [place] % (Auto) 5.8 Eos % (Auto) 1.0 Baso % (Auto) 0.7 Absolute Neuts (auto) 8.4 H Absolute Lymphs (auto) 1.50 Total Counted Neutrophils % (Manual) Band Neutrophils % Lymphocytes % (Manual) Monocytes % (Manual) Eosinophils % (Manual) Basophils % (Manual) Metamyelocytes % Myelocytes % Promyelocytes % Blast Cells % Plasma Cell % (Manual) Other Cells % Nucleated RBC % 0 Nucleated RBCs/100 WBC Differential Comment Diff Path Review Hypersegmented Neuts Atypical Lymphocytes Reactive Lymphocytes Smudge Cells Toxic Granulation Toxic Vacuolation Dohle Bodies Norma Rods Platelet Estimate Plt Morphology Comment RBC Morphology Polychromasia Hypochromasia Basophilic Stippling Anisocytosis Microcytosis Macrocytosis Spherocytes Sickle Cells Target Cells Tear Drop Cells Ovalocytes Stomatocytes [place] Bodies [place] Cells Bite Cells Crenated Cell Acanthocytes (Spur) Rouleaux Schistocytes Sodium 131 L Potassium 4.3 Chloride 92 L Carbon Dioxide 28.0 Anion Gap 11 BUN 31 H Creatinine 1.87 H Estim Creat Clear Calc 43.66 Est GFR (MDRD) Af Amer 47 L Est GFR (MDRD) Non-Af 39 L BUN/Creatinine Ratio 16.6 Glucose 587 H* Calcium 9.3 Total Bilirubin 0.70 AST 20 ALT 32 Alkaline Phosphatase 78 Total Protein 7.2 Albumin 3.6 Globulin 3.6 Albumin/Globulin Ratio 1.0 Urine Color Yellow Urine Clarity Sl. Cloudy Urine pH 6.0 Ur Specific [place] 1.010 Urine Protein 30 H Urine Glucose (UA) 1000 H Urine Ketones 50 H Urine Occult Blood Negative Urine Nitrite Negative Urine Bilirubin Negative Urine Urobilinogen Normal Ur Leukocyte Esterase Negative Urine RBC 0 SEEN Urine WBC 0 SEEN Ur Squamous Epith Cells 0 SEEN Urine Bacteria 0 SEEN Urine Mucus 0 SEEN Acetone Level NEGATIVE POC Glucose ABG Data ABG results: ABG 11/17/23 13:23 Specimen Type ADRIEN Sample Site Not entered VBG pH 7.42 VBG pO2 67 H VBG HCO3 24 VBG Total CO2 26 VBG O2 Sat (Calc) 93 H VBG Base Excess 0 POC Mix VBG pCO2 Pt Tmp 37.7 L O2 Delivery Device Not entered Rhythm Strip Rhythm Strip: Sinus Rhythm Rate: 62 Ectopy: None EKG Initial EKG: Attestation: I personally reviewed and interpreted this EKG as follows: Interpretation: Sinus Rhythm Comments: Normal sinus rhythm rate of 60 bpm Normal axis Normal intervals Normal ST segments Differential Diagnosis Chest pain/SOB: ACS ACS: Positive for EKG without ischemia and history not suggestive of ischemia pain Abdominal Pain: UTI Reason(s) UTI less likely: clinical exam does not support, no evidence of infection on urinalysis and no symptoms of acute infection Management Discussion w/another healthcare provider: Hospitalist Discharge Plan Triage Chief Complaint: Hyperglycemia ED Provider: Fouzia Villarreal Dx/Rx/DC Orders Clinical Impression: Hyperglycemia, ISHAN (acute kidney injury) Prescriptions: No Action allopurinol 100 MG tablet 100 mg PO DAILYCM amlodipine 10 MG tablet 10 mg PO DAILY atenolol-chlorthalidone 100-25 mg tablet 1 tab PO DAILY Patient Comments: TAKE 1 TABLET BY MOUTH EVERY DAY atorvastatin 80 mg tablet 80 mg PO DAILY Rx Instructions: takes in evening aspirin 81 MG tablet,chewable 81 mg PO DAILY Rx Instructions: takes in the evening metformin 500 MG tablet 1,000 mg PO BIDCM chlorthalidone 50 MG tablet 25 mg PO DAILY 0RF omeprazole 40 mg capsule,delayed release(DR/EC) 40 mg PO DAILY potassium chloride [Klor-Con M20] 20 mEq tablet,ER particles/crystals 20 meq PO DAILY losartan 50 mg tablet 100 mg PO DAILY Primary Care Provider: Maicol Aguilar Referrals: Maicol Aguilar MD [Primary Care Provider] - Disposition Disposition: Acute Care [facility]
[2023-11-17] MEDS: Insulin Lispro 100 UNIT/ML INSULN.PEN 16 UNIT SC (15:00)
[2023-11-17] MEDS: 0.9% Normal Saline (1000mL) 1,000 ML 150 ML IV (15:04)
[2023-11-17 16:26] LABS: Bedside Glucose 423 mg/dL (74-106)
[2023-11-17 17:00] LABS: Hemoglobin A1c 11.3 % (3.8-5.6)
--- NOTE | 2023-11-17 17:03 | PCM.HP.STD ---
HPI - General General Date of Admission: 11/17/23 HPI Narrative DUNCAN SEYMOUR, is a 63 M who presents to the hospital with a history of diabetes that he has been trying to get under control with diet and exercise. In July his A1c was 8.4 which was up from 7 in February. He states that he was no longer following a diet. He was at work today when he was feeling unwell with fatigue and slow mentation as well as dry mouth. He has been urinating a lot and also drinking a lot. His instructed him to go home and to check his blood sugar at which point it was in the 400-500 range. He called the hospital who recommended that he come into the ER. In the ER his blood sugars were extremely elevated and he was found to have an ISHAN with a creatinine of 1.87 his baseline is around 1. He did also appear to be very dehydrated however he had no other electrolyte abnormalities. [facility] Medical History Diabetes Heart attack HTN (hypertension) Home Medications allopurinol 100 mg tablet 100 mg PO DAILYCM Gout 04/18/14 [History Last Taken 03/17/20] amlodipine 10 mg tablet 10 mg PO DAILY blood pressure 04/18/14 [History Last Taken 03/17/20] aspirin 81 mg chewable tablet 81 mg PO DAILY heart 03/17/20 [History Last Taken 03/16/20] atenolol 100 mg-chlorthalidone 25 mg tablet 1 tab PO DAILY Blood pressure 03/17/20 [History Last Taken 03/17/20] atorvastatin 80 mg tablet 80 mg PO DAILY Cholesterol 03/17/20 [History Last Taken 03/16/20] metformin 500 mg tablet 1,000 mg PO BIDCM 03/17/20 [History Last Taken Unknown] chlorthalidone 50 mg tablet 25 mg (1/2 x 50 mg) PO DAILY 03/18/20 [Rx Last Taken Unknown] losartan 50 mg tablet 100 mg PO DAILY 11/17/23 [History Last Taken Unknown] omeprazole 40 mg capsule,delayed release 40 mg PO DAILY 11/17/23 [History Last Taken Unknown] potassium chloride 20 mEq tablet,extended release(part/cryst) (Klor-Con M) 20 meq PO DAILY 11/17/23 [History Last Taken Unknown] Allergy/AdvReac Type Severity Reaction Status Date / Time lisinopril Allergy Other Verified 11/17/23 12:24 Family History (Updated 11/17/23 @ 17:[address] Derrick Moore MD) Other Diabetes Surgical History Stented coronary artery Social History Smoking Status: Former smoker ROS Constitutional Constitutional: Reports fatigue; Denies chills, fever(s) or malaise Eyes Eyes: Denies blurry vision ENT HEENT: Denies headache(s) or nasal discharge Cardiovascular Cardiovascular: Denies chest pain, dyspnea on exertion or syncope Respiratory/Chest Respiratory/Chest: Denies cough, shortness of breath at rest or shortness of breath with exertion Gastrointestinal Gastrointestinal: Denies constipation, diarrhea, nausea or vomiting Genitourinary Genitourinary: Denies dysuria Neurologic Neurologic: Denies focal weakness, numbness or tremor(s) Psychiatric Psychiatric: Denies anxiety or depression Endocrine Endocrinology: Reports polydipsia and polyuria Vital Signs Vital Signs Vital Signs: 11/17/23 12:21 11/17/23 12:58 11/17/23 13:22 Temperature 97 F L Temperature Source Temporal Pulse Rate 61 94 Respiratory Rate 16 Respiratory Effort Normal Respiratory Pattern Normal Blood Pressure 146/103 H 144/94 H Blood Pressure Mean 117 110 Pulse Ox 97 Oxygen Delivery Method Room Air 11/17/23 15:00 Temperature Temperature Source Pulse Rate 70 Respiratory Rate 16 Respiratory Effort Respiratory Pattern Blood Pressure 130/79 H Blood Pressure Mean 96 Pulse Ox Oxygen Delivery Method Weight Weight: 202 lb 2.622 oz Body Mass Index (BMI) 31.6 Physical Exam Narrative General: Alert, Oriented x3, Cooperative, No apparent distress HEENT: Atraumatic, PERRLA, EOMI, Normocephalic Oral: Dry mucosa Neck: Supple, No JVD Lungs: Diminished, Normal air movement, No rhonchi, No wheeze, No rales Cardiovascular: Regular rate, Regular Rhythm, Normal S1, Normal S2, No murmurs Abdomen: Soft, Non Tender, Non-Distended, No Hepato-splenomegaly Extremities: No edema, Capillary Refill Less than 3 Seconds Skin: No rashes, No breakdown Musculoskeletal: No Tenderness to Palpation of Joints or Extremities Neurological: No focal neurological deficits, Motor Exam 5/5 strength throughout, Sensory exam intact to light touch and pain Psych/Mental Status: Normal Affect, Appropriate Results Lab / Micro Data 11/17/23 13:15 11/17/23 13:15 Labs: Laboratory Results - last 24 hr 11/17/23 12:39: POC Glucose > 500 H* 11/17/23 12:55: WBC Cancelled, Corrected WBC Cancelled, RBC Cancelled, Hgb Cancelled, Hct Cancelled, MCV Cancelled, MCH Cancelled, MCHC Cancelled, RDW Std Deviation Cancelled, RDW Coeff of Fantasma Cancelled, Plt Count Cancelled, MPV Cancelled, Immature Gran % (Auto) Cancelled, Neut % (Auto) Cancelled, Lymph % (Auto) Cancelled, [place] % (Auto) Cancelled, Eos % (Auto) Cancelled, Baso % (Auto) Cancelled, Absolute Neuts (auto) Cancelled, Absolute Lymphs (auto) Cancelled, Total Counted Cancelled, Neutrophils % (Manual) Cancelled, Band Neutrophils % Cancelled, Lymphocytes % (Manual) Cancelled, Monocytes % (Manual) Cancelled, Eosinophils % (Manual) Cancelled, Basophils % (Manual) Cancelled, Metamyelocytes % Cancelled, Myelocytes % Cancelled, Promyelocytes % Cancelled, Blast Cells % Cancelled, Plasma Cell % (Manual) Cancelled, Other Cells % Cancelled, Nucleated RBC % Cancelled, Nucleated RBCs/100 WBC Cancelled, Differential Comment Cancelled, Diff Path Review Cancelled, Hypersegmented Neuts Cancelled, Atypical Lymphocytes Cancelled, Reactive Lymphocytes Cancelled, Smudge Cells Cancelled, Toxic Granulation Cancelled, Toxic Vacuolation Cancelled, Dohle Bodies Cancelled, Norma Rods Cancelled, Platelet Estimate Cancelled, Plt Morphology Comment Cancelled, RBC Morphology Cancelled 11/17/23 12:55: RBC Morphology Cancelled, Polychromasia Cancelled, Hypochromasia Cancelled, Basophilic Stippling Cancelled, Anisocytosis Cancelled, Microcytosis Cancelled, Macrocytosis Cancelled, Spherocytes Cancelled, Sickle Cells Cancelled, Target Cells Cancelled, Tear Drop Cells Cancelled, Ovalocytes Cancelled, Stomatocytes Cancelled, [place]orthy-[place] Bodies Cancelled, [place] Cells Cancelled, Bite Cells Cancelled, Crenated Cell Cancelled, Acanthocytes (Spur) Cancelled, Rouleaux Cancelled, Schistocytes Cancelled, Sodium Cancelled, Potassium Cancelled, Chloride Cancelled, Carbon Dioxide Cancelled, Anion Gap Cancelled, BUN Cancelled, Creatinine Cancelled, Estim Creat Clear Calc Cancelled, Est GFR (MDRD) Af Amer Cancelled, Est GFR (MDRD) Non-Af Cancelled, BUN/Creatinine Ratio Cancelled, Glucose Cancelled, Calcium Cancelled, Total Bilirubin Cancelled, AST Cancelled, ALT Cancelled, Alkaline Phosphatase Cancelled, Total Protein Cancelled, Albumin Cancelled, Globulin Cancelled, Albumin/Globulin Ratio Cancelled 11/17/23 13:15: WBC 10.8, RBC 5.56, Hgb 15.1, Hct 44.7, MCV 80.4, MCH 27.2, MCHC 33.8, RDW Std Deviation 36.2, RDW Coeff of Fantasma 12.6, Plt Count 314, MPV 11.1, Immature Gran % (Auto) 0.400, Neut % (Auto) 78.2 H, Lymph % (Auto) 13.9 L, [place] % (Auto) 5.8, Eos % (Auto) 1.0, Baso % (Auto) 0.7, Absolute Neuts (auto) 8.4 H, Absolute Lymphs (auto) 1.50, Nucleated RBC % 0, Sodium 131 L, Potassium 4.3, Chloride 92 L, Carbon Dioxide 28.0, Anion Gap 11, BUN 31 H, Creatinine 1.87 H, Estim Creat Clear Calc 43.66, Est GFR (MDRD) Af Amer 47 L, Est GFR (MDRD) Non-Af 39 L, BUN/Creatinine Ratio 16.6, Glucose 587 H*, Hemoglobin A1c 11.3 H, Calcium 9.3, Total Bilirubin 0.70, AST 20, ALT 32, Alkaline Phosphatase 78, Total Protein 7.2, Albumin 3.6, Globulin 3.6, Albumin/Globulin Ratio 1.0 11/17/23 14:05: Urine Color Yellow, Urine Clarity Sl. Cloudy, Urine pH 6.0, Ur Specific [place] 1.010, Urine Protein 30 H, Urine Glucose (UA) 1000 H, Urine Ketones 50 H, Urine Occult Blood Negative, Urine Nitrite Negative, Urine Bilirubin Negative, Urine Urobilinogen Normal, Ur Leukocyte Esterase Negative, Urine RBC 0 SEEN, Urine WBC 0 SEEN, Ur Squamous Epith Cells 0 SEEN, Urine Bacteria 0 SEEN, Urine Mucus 0 SEEN, Acetone Level NEGATIVE 11/17/23 14:35: POC Glucose > 500 H* 11/17/23 16:06: POC Glucose 423 H ABG Data ABG results: ABG 11/17/23 13:23 Specimen Type ADRIEN Sample Site Not entered VBG pH 7.42 VBG pO2 67 H VBG HCO3 24 VBG Total CO2 26 VBG O2 Sat (Calc) 93 H VBG Base Excess 0 POC Mix VBG pCO2 Pt Tmp 37.7 L O2 Delivery Device Not entered Rhythm Strip Rhythm Strip: Sinus Rhythm Rate: 62 Ectopy: None Assessment & Plan Assessment/Plan (1) ISHAN (acute kidney injury): (2) Hyperglycemia: PLAN: Plan 1. Uncontrolled DM2 with hyperglycemia and ISHAN ? Received 10 units of insulin down to 423 in the ER ? Continue with aggressive IV fluids ? Creatinine is 1.7 with a baseline of 1 will monitor ? Instructed the patient that he will likely be discharged on insulin ? A1c is 11.3 ? Had a 45-minute discussion lifestyle modifications occluding dieting and exercising ? Will hold his nephrotoxic blood pressure medications as well as his metformin until renal function stabilizes ? Pseudohyponatremia secondary to his blood sugar elevation 2. CAD status post stent/HTN/HLD ? Will continue with his allopurinol and amlodipine as well as aspirin but will hold his chlorthalidone and losartan ? Continue with Lipitor ? Blood pressures are currently stable ? Will monitor and make adjustments as necessary 3. GERD ? Stable ? Continue with PPI DVT: Ambulation 76 minutes was spent on direct patient care, including documentation as well as chart review and collaboration with colleagues Charges/Coding Visit Charges Inpatient E&M: 34688 Init Hosp L3
[2023-11-17 17:36] LABS: Bedside Glucose 387 mg/dL (74-106)
[2023-11-17] MEDS: 0.9% Normal Saline (1000mL) 1,000 ML 100 ML IV (18:47)
--- OUTSIDE RECORDS SUMMARY | 2023-11-17 19:04 | XMS RPT_ITS | CCD ---
Author Name Unknown Address [address] [place] [address] Organization [facility] Care Team Providers Care Certified Medical Aide Name Role Phone AVALLONE, DELISA N Unavailable Unavailable AVALLONE, DELISA N Unavailable Unavailable AVALLONE, DELISA N Unavailable Unavailable AVALLONE, DELISA N Unavailable Unavailable CEBUL, ABEL Unavailable Unavailable SABINO BARTONNETH Unavailable Unavailable ORALIA, ASH Unavailable Unavailable CEBUL, ABEL Unavailable Unavailable ORALIA, ASH Unavailable Unavailable ORALIA, ASH E Unavailable Unavailable SABINO BARTONNETH E Unavailable Unavailable Odalis Aguilar MD Primary Care Provider Odalis Aguilar MD Primary Care Provider Odalis Aguilar MD Primary Care Provider Odalis Aguilar MD Primary Care Provider ODALIS AGUILAR Primary Care Unavailable KANDY NARVAEZ Referring Unavailable ODALIS AGUILAR Primary Care Unavailable KANDY NARVAEZ Attending Unavailable ODALIS AGUILAR Primary Care Unavailable MARISA VANEAGS Attending Unavailab ODALIS Brian Primary Care Unavailable JOHANN LATIF II Attending Unavailabl ODALIS Howard Primary Care Unavailable Raissa GAINES Referring Unavailable Raissa GAINES Referring Unavailable ODALIS AGUILAR Primary Care Unavailable ODALIS AGUILAR Primary Care Unavailable Raissa GAINES Attending Unavailable Raissa GAINES Referring Unavailable ODALIS AGUILAR Primary Care Unavailable ODLAIS AGUILAR Primary Care Unavailable Raissa GAINES Attending Unavailable ODALIS AGUILAR Primary Care Unavailable KANDY NARVAEZ Referring Unavailable ODALIS AGUILAR Primary Care Unavailable SANTANA LONG Attending Unavailable SANTANA LONG Referring Unavailable ODALIS AGUILAR Primary Care Unavailable FRANSISCO SANTANA STEVENSON Referring Unavailable Allergies Allergy Classification Reported Allergen(s) Allergy Type Date of Onset Reaction(s) Facility (20 sources) lisinopril; Translations: [LISINOPRIL] Drug Allergy 11-03-2007 Cough [facility] Other [place] [facility] Medications Current Medications Medication Drug Class(es) Dates Sig (Normalized) Sig (Original) atorvastatin 80 mg oral tablet (19 sources) HMG-CoA Reductase Inhibitor Start: 09-25-2021 End: 08-14-2024 take 1 tablet by mouth once daily atorvastatin (LIPITOR) 80 mg tablet Indications: Hyperlipidemia LDL goal Take 1 tablet by mouth once daily. 90 tablet 3 08/15/2023 08/14/2024 Active Completed/Discontinued Medications Medication Drug Class(es) Dates Sig (Normalized) Sig (Original) allopurinol 100 mg oral tablet (20 sources) Xanthine Oxidase Inhibitor Start: 05-14-2022 End: 08-15-2023 take 1 tablet by mouth once daily allopurinol (ZYLOPRIM) 100 mg tablet Indications: Chronic gout without tophus, unspecified cause, unspecified site Take 1 tablet by mouth once daily. For gout. 90 tablet 3 08/15/2023 Active Problems Active Problems Problem Classification Problem Date Documented Date Episodic/Chronic Acute myocardial infarction (19 sources) Myocardial infarction; Translations: [Non-ST elevation (NSTEMI) myocardial infarction] Onset: 04-26-2014 04-26-2014 Chronic Asthma (20 sources) Mild intermittent asthma; Translations: [Mild intermittent asthma with (acute) exacerbation] Onset: 04-12-2019 04-12-2019 Chronic Blindness and vision defects (3 sources) Presbyopia; Translations: [Presbyopia] Episodic Cancer of prostate (20 sources) Malignant neoplasm of prostate; Translations: [Malignant tumor of prostate] Onset: 11-04-2016 12-08-2017 Chronic Cataract (1 source) Bilateral senile combined form cataracts of eyes; Translations: [Combined forms of age-related cataract, bilateral] Chronic Coronary atherosclerosis and other heart disease (20 sources) Atherosclerotic heart disease of [place] coronary artery without angina pectoris; Translations: [Coronary arteriosclerosis] Onset: 04-26-2014 04-26-2014 Chronic Diabetes mellitus without complication (20 sources) Type 2 diabetes mellitus without complication; Translations: [Type 2 diabetes mellitus without complications] Onset: 07-15-2017 07-15-2017 Chronic Disorders of lipid metabolism (20 sources) Hyperlipidemia; Translations: [Hyperlipidemia, unspecified] Onset: 12-05-2015 12-05-2015 Chronic Esophageal disorders (20 sources) Gastroesophageal reflux disease; Translations: [Gastro-esophageal reflux disease without esophagitis] Onset: 05-21-2010 05-21-2010 Chronic Essential hypertension (20 sources) Benign essential hypertension; Translations: [Essential (primary) hypertension] Onset: 10-30-2005 10-30-2005 Chronic Gout and other crystal arthropathies (20 sources) Gout; Translations: [Gout, unspecified] Onset: 01-08-2012 01-08-2012 Chronic Immunizations and screening for infectious disease (3 sources) Patient encounter status; Translations: [Encounter for immunization] Episodic Other and unspecified benign neoplasm (1 source) Lipoma of trunk; Translations: [Benign lipomatous neoplasm of skin and subcutaneous tissue of trunk] Episodic Other nervous system disorders (1 source) Other acute postprocedural pain; Translations: [Other acute postprocedural pain] Onset: 12-09-2017 Episodic Other non-traumatic joint disorders (1 source) Effusion, right ankle; Translations: [Right ankle swelling] Onset: 08-28-2023 Episodic Other nutritional; endocrine; and metabolic disorders (18 sources) Obese class I; Translations: [Obesity, unspecified] Onset: 07-15-2017 07-15-2017 Chronic Other nutritional; endocrine; and metabolic disorders (1 source) Obesity, unspecified; Translations: [Obesity, Class I, BMI 30-34.9] Onset: 07-15-2017 Chronic Spondylosis; intervertebral disc disorders; other back problems (17 sources) Low back pain; Translations: [Lumbago] 10-29-2005 Episodic Unclassified (2 sources) Unknown / UNK(Unknown) Onset: 04-26-2014 Past or Other Problems Problem Classification Problem Date Documented Da te Episodic/Chronic Cardiac dysrhythmias (17 sources) Tachycardia; Translations: [Tachycardia, unspecified] Onset: 04-04-2020 04-04-2020 Episodic Coronary atherosclerosis and other heart disease (20 sources) Stent in branch of right coronary artery; Translations: [Presence of coronary angioplasty implant and graft] Onset: 04-26-2014 04-26-2014 Episodic Fluid and electrolyte disorders (20 sources) Hypokalemia; Translations: [Hypokalemia] Onset: 01-20-2018 01-20-2018 Episodic Medical examination/evaluation (1 source) Encounter for preprocedural cardiovascular examination; Translations: [Encounter for preprocedural cardiovascular examination] Onset: 12-02-2017 Episodic Other and unspecified benign neoplasm (17 sources) Lipoma (clinical); Translations: [Benign lipomatous neoplasm, unspecified] Onset: 01-08-2012 01-08-2012 Episodic Other and unspecified benign neoplasm (1 source) Benign lipomatous neoplasm of skin and subcutaneous tissue of trunk; Translations: [Lipoma of torso] Onset: 01-08-2012 Episodic Other connective tissue disease (17 sources) Impingement syndrome of right shoulder region; Translations: [Impingement syndrome of right shoulder] Onset: 02-07-2020 02-07-2020 Episodic Other ear and sense organ disorders (1 source) Impacted cerumen, bilateral; Translations: [Bilateral impacted cerumen] Onset: 01-23-2023 Episodic Other nervous system disorders (1 source) Unsteadiness on feet; Translations: [Unsteadiness on feet] Onset: 01-23-2023 Episodic Other screening for suspected conditions (not mental disorders or infectious disease) (1 source) Encounter for screening for malignant neoplasm of colon; Translations: [Screening for colon cancer] Onset: 02-25-2023 Episodic Otitis media and related conditions (1 source) Acute serous otitis media, left ear; Translations: [Non-recurrent acute serous otitis media of left ear] Onset: 01-23-2023 Episodic Results Test Name Value Interpretation Reference Range Facil ity Vital Signs Date Time Vital Sign Value Performing Clinician Glenn fitch 08-15-2023 08:00-0500 Body weight 95.71 kg NA Icecreamlabs Work Phone: [facility] 08-15-2023 08:00-0500 Diastolic blood pressure 82 mm[Hg] NA Gaines PA-MeMeMe Work Phone: [facility] 08-15-2023 08:00-0500 Heart rate 60 /min NA Gaines [employer]il[employer] Work Phone: [facility] 08-15-2023 08:00-0500 Respiratory rate 16 /min NA Gaines PA-C Work Phone: [facility] 08-15-2023 08:00-0500 SaO2% (BldA) [Mass fraction] 100 % NA Gaines PA-C Work Phone: [facility] 08-15-2023 08:00-0500 Systolic blood pressure 130 mm[Hg] NA Gaines PA-C Work Phone: [facility] 02-25-2023 08:32-0400 Body weight 94.8 kg Kandy Haagen [employer] Work Phone: [facility] 02-25-2023 08:32-0400 Diastolic blood pressure 82 mm[Hg] Kandy Haagen [employer] Work Phone: [facility] 02-25-2023 08:32-0400 Heart rate 61 /min Kandy Haagen [employer] Work Phone: [facility] 02-25-2023 08:32-0400 Respiratory rate 16 /min Kandy Haagen [employer] Work Phone: [facility] 02-25-2023 08:32-0400 SaO2% (BldA) [Mass fraction] 97 % Kandy Haagen [employer] Work Phone: [facility] 02-25-2023 08:32-0400 Systolic blood pressure 128 mm[Hg] Kandy Haagen [employer] Work Phone: [facility] 08-27-2022 08:07-0500 Body height 170.5 cm Kandy Haagen [employer] Work Phone: [facility] 08-27-2022 08:07-0500 Body weight 92.99 kg Kandy Haagen [employer] Work Phone: [facility] 08-27-2022 08:07-0500 Diastolic blood pressure 82 mm[Hg] Kandy Haagen [employer] Work Phone: [facility] 08-27-2022 08:07-0500 Heart rate 68 /min Kandy Haagen [employer] Work Phone: [facility] 08-27-2022 08:07-0500 Respiratory rate 18 /min Kandy Narvaez [employer] Work Phone: [facility] 08-27-2022 08:07-0500 SaO2% (BldA) [Mass fraction] 96 % Kandy Narvaez [employer] Work Phone: [facility] 08-27-2022 08:07-0500 Systolic blood pressure 130 mm[Hg] Kandy Narvaez [employer] Work Phone: [facility] 06-10-2022 08:37-0400 Body height 170.2 cm Santana Long MD Work Phone: [facility] 06-10-2022 08:37-0400 Body weight 97.98 kg Santana Long MD Work Phone: [facility] 06-10-2022 08:37-0400 Diastolic blood pressure 94 mm[Hg] Santana Long MD Work Phone: [facility] 06-10-2022 08:37-0400 Heart rate 62 /min Santana Long MD Work Phone: [facility] 06-10-2022 08:37-0400 Systolic blood pressure 160 mm[Hg] Santana Long MD Work Phone: [facility] Encounters Encounter Date Encounter Type Care Provider Facility Start: 10-25-2023 Kaylen Nix on PA-C Work Phone: [facility] Procedures Date Procedure Procedure Detail Performing Clinician Start: 09-20-2021 Adult depression scr eening assessment Odalis Aguilar MD Work Phone: Start: 08-03-2013 Colonoscopy Odalis Lopez MD Work Phone: Plan of Treatment Date Care Activity Detail Author Start: 08-27-2032 Urine microalbumin profile [facility] Start: 08-15-2028 Prostate specific an tigen measurement Prostate Cancer Screening Discussion [facility] Start: 12-15-2027 PROSTATE CANCER SCRE ENING DISCUSSION PROSTATE CANCER SCREENING DISCUSSION [facility] Start: 07-13-2026 PROSTATE CANCER SCRE ENING DISCUSSION PROSTATE CANCER SCREENING DISCUSSION [facility] Start: 08-28-2024 Annual PCP Team [facility] Disease Visit Annual PCP Team Chronic Disease Visit [facility] Start: 08-15-2024 Annual PCP Team [facility] Disease Visit Annual PCP Team Chronic Disease Visit [facility] Start: 08-15-2024 Hepatitis B screening Urine Al bumin:Creatinine Ratio [facility] Start: 08-15-2024 Shingrix Vaccine (1 of 2) Sanz grix Vaccine (1 of 2) [facility] Immunizations Immunization Date Immunization Notes Care Provider Fa cility 08-27-2022 tetanus toxoid, redu lizabeth diphtheria toxoid, and acellular pertussis vaccine, adsorbed Kandy Narvaez [employer] Work Phone: [facility] 07-17-2018 influenza virus vaccine, unspecified formulation Odalis Aguilar MD Work Phone: [facility] 10-31-2006 pneumococcal conjuga te vaccine, 7 valent Odalis Aguilar MD Work Phone: [facility] Work Phone: 07-05-1991 diphtheria and tetan us toxoids, adsorbed for pediatric use Odalis Aguilar MD Work Phone: [facility] Work Phone: Payers Date Payer Category Payer Private Health Insurance [id number] 2017 Private Health Insurance [employer] A [employer] [id number] 2017-Present [phone] [address] [place] [address] PPO [id number] 2017 Private Health Insurance [employer] A [employer] [id number] 2017-Present [phone] [address] [place] [address] PPO [id number] 2017 Unknown [facility] [employer] [employer] [id number] 09/08/2017-Present [id number] [place] [address] [facility] [id number] Social History Date Type Detail Facility Start: 05-31-2015 End: 06-10-2022 Tobacco smoking status NHIS Ex-smoker [facility] End: 02-06-1987 History of tobacco use Current smoker [facility] End: 02-06-1987 History of tobacco use Cigarette Smoker [facility] Start: 10-29-2021 End: 08-28-2023 Alcohol intake Ex-drinker (finding) [facility] Start: 07-18-2021 End: 08-23-2022 History SDOH Alcohol Frequency 2 [facility] Start: 07-18-2021 End: 08-23-2022 History SDOH Alcohol Std Drinks 1 [facility] Start: 07-18-2021 End: 08-23-2022 History SDOH Social Connections Phone 5 [facility] Start: 07-18-2021 End: 08-23-2022 History SDOH Social Connections Get Together 3 [facility] Start: 07-18-2021 History SDOH Physica l Activity MPS 6 [facility] Start: 07-18-2021 History SDOH Financial 4 [facility] Start: 01-31-2020 Education 15 [facility] Start: 1960 Sex Assigned At Not on file [facility] Start: 05-31-2015 End: 01-23-2023 Cigarettes smoked current (pack per day) - Reported 3 [facility] Start: 05-31-2015 End: 06-10-2022 Tobacco use and exposure Smokeless tobacco non-user [facility] Start: 05-31-2022 End: 06-10-2022 Exposure to SARS-CoV-2 (event) Not sure [facility] Start: 08-23-2022 End: 01-23-2023 Social connection and isolation panel [facility] Do you belong to any clubs or organizations such as amish groups, unions, fraternal or athletic groups, or school groups? Yes [facility] Are you now , , , , never or living with a partner? [facility] How often to you hav e a drink containing alcohol? 2-4 times a month [facility] How many standard dr inks containing alcohol do you have on a typical day? 1 or 2 [facility] How often do you hav e 6 or more drinks on 1 occasion? Never [facility] How hard is it for y ou to pay for the very basics like food, housing, medical care, and heating Not hard at all [facility] Do you feel stress - tense, restless, nervous, or anxious, or unable to sleep at night because your mind is troubled all the time - these days [OSQ] Not at all [facility] (I/We) worried wheth er (my/our) food would run out before (I/we) got money to buy more. Never true [facility] In the past 12 month s, was there a time when you were not able to pay the mortgage or rent on time? No [facility] How often to you hav e a drink containing alcohol? Monthly or less [facility] Medical Equipment Procedure Code Equipment Code Equipment Origin al Text Equipment Identifier Dates Start: 05-12-2020 End: 07-25-2022 Clinical Notes 06-10-2013 to 10-27-2023 Telephone Encounter - Deanna Conn LPN - 10/27/2023 9:43 AM Raissa Aviles PA-C - 08/15/2023 8:00 AM ESTTelephone Encounter - Meagan Brennan RN - 07/30/2023 3:49 PM EST Note Date & Type Note Facility 10-27-2023 Miscellaneous Notes Patient has been identified by name and date of : Yes, Patient phones for refill(s): Requested Prescriptions Pending Prescriptions Disp Refills amLODIPine (NORVASC) 10 mg tablet 90 tablet 0 Sig: Take 1 tablet by mouth once daily. Date of last office visit in primary care:08/15/2023 Date of next office visit in primary care:02/12/2024 Please advise. Thank you. eDanna Conn LPN. documented in this encounter [facility] 08-28-2023 Note HNO ID: [id number] Author: Rozina Pressley RT(R) Service: ? Author Type: Body Service Team Member Type: Progress Notes Filed: 08/28/2023 1:32 PM Note Text: Radiology Service Progress Note PATIENT NAME: Freedom Crystal DATE OF SERVICE: August 28, 2023 TIME: 1:20 PM PATIENT IDENTITY VERIFICATION COMPLETED USING TWO (2) IDENTIFIERS: Name and Date of confirmed by patient verbally. FALL SCREENING: Has the patient had 2 falls in the last year or 1 fall with injury or currently using an Ambulatory Assistive Device (Walker, Cane, Wheelchair, Crutches, etc.)? No PATIENT GENDER DATA: Male PATIENT RELEVANT IMPLANT DATA REVIEWED: Yes RADIOLOGY DEPARTMENT: General X-ray: Exam(s) Completed: Lower Extremity X-Ray(s): Ankle, Right PERIPHERAL IV DATA: Not applicable SIGNED BY: RT Nahed(R) August 28, 2023 1:20 PM [facility] 08-28-2023 Note HNO ID: [id number] Author: Raissa Gaines PA-C Service: ? Author Type: Physician Manager Occupational Type: Progress Notes Filed: 08/28/2023 8:01 PM Note Text: 62 year old male with c/o right ankle swollen started Friday night, very painful. Had a pair of work boots on. Painful along lateral ankle into posterior distal calf. 1-2/10 today, at worst 4-5/10. Limping. Hx of gout previously,on allopurinol 100mg daily. Doesn't feel like gout in past. HISTORIES FAMILY HISTORY Problem Relation Age of Onset Diabetes Mother Hypertension Mother Macular Degen Mother None Father PAST MEDICAL HISTORY Diagnosis Date ASHD (arteriosclerotic heart disease) 04/26/2014 BCC (basal cell carcinoma of skin) Controlled type 2 diabetes mellitus without complication, without long-term current use of insulin (HCC) 07/15/2017 Esophageal reflux Essential hypertension, benign age 18 GERD (gastroesophageal reflux disease) 05/21/2010 Gout 01/08/2012 Hyperlipidemia LDL goal <100 12/05/2015 HYPERLIPIDEMIA NEC/NOS 10/30/2005 Hypokalemia 01/20/2018 Lipoma 01/08/2012 Lumbago DDD Mild intermittent asthma with acute exacerbation 04/12/2019 NSTEMI (non-ST elevated myocardial infarction) (HCC) 04/26/2014 PARALYSIS OF the DIAPHRAGM 10/15/2006 resolved by 2013 Presence of bare metal stent in right coronary artery 04/26/2014 Prostate nodule 08/11/2013 PAST SURGICAL HISTORY Procedure Laterality Date BRONCHOSCOPY COLONOSCOPY FLX DX W/COLLJ SPEC WHEN PFRMD 08/03/2013 Colonoscopy ESOPHAGOGASTRODUODENOSCOPY TRANSORAL DIAGNOSTIC 08/03/2013 EGD HEART CATHETERIZATION 04/19/14 stent placement MAL LESION FACE,EAR,EYEL 1.1-2CM 06/23/13 Exc. BCC right taoism/cheek PROSTATE NEEDLE BIOPSY ANY APPROACH 01/27/2017 Transrectal bx, prostate - fusion Dr Alvarado Social History Tobacco Use Smoking status: Former Packs/day: 3.00 Years: 7.00 Additional pack years: 0.00 Total pack years: 21.00 Types: Cigarettes Quit date: 02/06/1987 Years since quittin.5 Smokeless tobacco: Never Vaping Use Vaping Use: Never used Substance Use Topics Alcohol use: Not Currently Comment: RARE Drug use: No ACTIVE PROBLEM LIST Lumbago Essential Hypertension, Benign Gerd (Gastroesophageal Reflux Disease) Gout Lipoma Nstemi (Non-St Elevated Myocardial Infarction) (Hcc) Ashd (Arteriosclerotic Heart Disease) Presence of Bare Metal Stent in Right Coronary Artery Hyperlipidemia Ldl Goal <100 Prostate Cancer (Hcc) Controlled Type 2 Diabetes Mellitus Without Complication, Without Long-Term Current Use of Insulin (Hcc) Obesity, Class I, Bmi 30-34.9 Hypokalemia Mild Intermittent Asthma With Acute Exacerbation Shoulder Impingement Syndrome, Right Tachycardia Current Outpatient Medications Medication Sig Dispense Refill metFORMIN (GLUCOPHAGE) 500 mg tablet Take 2 tablets by mouth two times a day with meals. 180 tablet 3 atorvastatin (LIPITOR) 80 mg tablet Take 1 tablet by mouth once daily. 90 tablet 3 omeprazole (PRILOSEC) 40 mg capsule Take 1 capsule by mouth once daily. 90 capsule 3 Atenolol-Chlorthalidone (TENORETIC 100) 100-25 mg per tablet Take 1 tablet by mouth once daily. 90 tablet 3 allopurinol (ZYLOPRIM) 100 mg tablet Take 1 tablet by mouth once daily. For gout. 90 tablet 3 potassium chloride ER (KLOR-CON M20) 20 mEq tablet Take 1 tablet by mouth once daily. 90 tablet 3 amLODIPine (NORVASC) 10 mg tablet Take 1 tablet by mouth once daily. 90 tablet 0 losartan (COZAAR) 50 mg tablet Take 2 tablets by mouth once daily. 180 tablet 1 blood sugar diagnostic (BLOOD GLUCOSE TEST) test strip Test blood sugar(s) 1-2 times daily. Dx: Type 2 DM - Controlled E11.9 Insulin: No What insurance will cover 100 Strip 3 Lancets lancets Test blood sugar(s) 1-2 times daily. Dx: Type 2 DM - Controlled E11.9 Insulin: No 100 Each 3 aspirin, enteric coated (ADULT LOW DOSE ASPIRIN) 81 mg EC tablet Take 1 tablet by mouth once daily. 0 Blood-Glucose Meter monitoring kit 1 Each as needed (1-2 times/day). Meter insurance will cover. 1 Each 0 No current facility-administered medications for this visit. Covid-19 Vaccine(1) Never done Pneumococcal Vaccine(1 of 2 - PCV) due on 1966 Spirometry Never done HIV Screening Never done BP Controlled (<130/80) Never done RSV Vaccine(1 - 1-dose 60+ series) Never done Colorectal Cancer Screening due on 08/03/2023 Diabetic Foot Exam due on 08/27/2023 Dilated Retinal Exam due on 09/12/2023 EXAM: BP 132/80 Pulse 65 Resp 16 Wt 95.7 kg (211 lb) SpO2 97% BMI 32.92 kg/m? Pleasant well appearing adult man in no acute distress. Alert and oriented all spheres. Normal affect and cognition. Speech normal. No deficits to learning or comprehension. Skin warm, dry, pink to lips and nailbeds. Normal turgor. Respirations regular and unlabored. Extrem: no clubbing or cyanosis. Edema: very slight pink swelling along lateral right calf. + very slight (more content not included)... [facility] 08-15-2023 Note HNO ID: [id number] Author: Raissa Gaines PA-C Service: ? Author Type: Physician Manager Occupational Type: Progress Notes Filed: 08/15/2023 9:56 AM Note Text: 62 year old male with c/o here for followup Ashd (arteriosclerotic heart disease) (primary encounter diagnosis) Nstemi (non-st elevated myocardial infarction) (hcc) Presence of bare metal stent in right coronary artery Essential hypertension, benign Hyperlipidemia ldl goal <100 Cardiovascular interval hx: 06/09/2023 last cardiology f/u Dr. Long:stable 11/12/2021 [place] card perf stress exercise CONCLUSIONS: 1. SPECT Perfusion Study: Normal. 2. There is no scintigraphic evidence for inducible ischemia. 3. No evidence of scarred myocardium. 4. Left ventricle is normal in size. The left ventricle systolic function is hyperdynamic. 5. Right ventricle is normal in size. The right ventricle systolic function is normal. 6. This is a low risk scan. Gated Stress FBP LVEF % 83 04/19/2014 admitted to [facility] with NSTEMI, 1 hour of chest discomfort associated with weakness and tiredness initially low molecular weight heparin, statin therapy, antiplatelets. Underwent coronary angiography w/ tight distal RCA stenosis, transferred to [facility] where he underwent RCA PTCA and stent 04/18/2014 admitted to [facility] with acute coronary syndrome and chest pain described as substernal pressure 5/10 Current meds: Amlodipine 10 mg daily Atenolol-chlorthalidone 100-25 mg tablet daily Atorvastatin 80 mg daily Losartan 50 mg daily Potassium chloride 20 mEq daily Use of NTG: No Chest pain, arm, jaw pain, neck, or upper back pain suggestive of angina: No. SOB: No Dyspnea with exertion: some with running up and stairs a few times. orthopnea: No Cough : No racing or irregular heartbeats: No palpitations: No syncopal sx: No Headache: No Unexplainable fatigue No Leg swelling: No more than imprint of socks. Nausea: No diaphoresis: No Heartburn: No Claudication: No Smoking: No Following Low cholesterol, high fiber diet? Yes If on statin: muscle aches? No If on statin: GI sx or diarrhea? No Additional history none. Lab review: Component Latest Ref Rng AND Units 08/22/2022 02/25/2023 WBC 3.70 - 11.00 k/uL 7.69 8.57 RBC 4.20 - 6.00 m/uL 5.34 5.19 Hemoglobin 13.0 - 17.0 g/dL 14.8 14.3 Hematocrit 39.0 - 51.0 % 44.7 42.9 MCV 80.0 - 100.0 fL 83.7 82.7 MCH 26.0 - 34.0 pg 27.7 27.6 MCHC 30.5 - 36.0 g/dL 33.1 33.3 RDW-CV 11.5 - 15.0 % 13.2 13.1 Platelet Count 150 - 400 k/uL 313 265 MPV 9.0 - 12.7 fL 11.2 11.3 Neut% % 61.2 64.4 Abs Neut (ANC) 1.45 - 7.50 k/uL 4.71 5.52 Lymph% % 25.4 22.1 Abs Lymph 1.00 - 4.00 k/uL 1.95 1.89 Travis% % 9.0 8.5 Abs Travis <0.87 k/uL 0.69 0.73 Eosin% % 3.4 3.5 Abs Eosin <0.46 k/uL 0.26 0.30 Baso% % 0.9 0.8 Abs Baso <0.11 k/uL 0.07 0.07 Immature Gran % % 0.1 0.7 IMMATURE GRANS (ABS) <0.10 k/uL <0.03 0.06 NRBC /100 WBC 0.0 0.0 Absolute nRBC <0.01 k/uL <0.01 <0.01 DTYPE Auto Auto Protein, Total 6.3 - 8.0 g/dL 7.1 7.0 Albumin 3.9 - 4.9 g/dL 4.5 4.2 Calcium 8.5 - 10.2 mg/dL 9.6 9.5 Bilirubin, Total 0.2 - 1.3 mg/dL 0.4 0.4 Alkaline Phosphatase 38 - 113 U/L 54 59 AST 14 - 40 U/L 19 22 ALT 10 - 54 U/L 21 21 Glucose 74 - 99 mg/dL 128 (H) 132 (H) BUN 9 - 24 mg/dL 21 19 Creatinine 0.73 - 1.22 mg/dL 1.08 0.99 Sodium 136 - 144 mmol/L 139 138 Potassium 3.7 - 5.1 mmol/L 3.5 (L) 3.8 Chloride 97 - 105 mmol/L 99 99 CO2 22 - 30 mmol/L 27 26 Anion Gap 9 - 18 mmol/L 13 13 eGFR >=60 mL/min/1.73mA? 78 86 Cholesterol, Total <200 mg/dL 128 121 Triglyceride <150 mg/dL 194 (H) 145 HDL Cholesterol >39 mg/dL 31 (L) 35 (L) Non HDL Cholesterol <130 mg/dL 97 86 Fasting Time hrs 14 12 VLDL Cholesterol <30 mg/dL 39 (H) 29 TC:HDL Ratio <5.10 4.13 3.46 LDL Cholesterol <100 mg/dL 58 57 LDL:HDL Ratio <2.54 1.87 1.63 Magnesium 1.7 - 2.3 mg/dL 1.9 Controlled type 2 diabetes mellitus without complication, without long-term current use of insulin ([facility]) Current medications: Metformin 500 mg 1 tablets twice daily with meals Taking medication as directed consistently? Yes Medication side effects: causes upset stomach Medical Issues / Complications: hypertension, hyperlipidemia, and cardiovascular disease Checking blood sugars at home? Yes. Fasting 166-188-200 Watching diet? Has changed diet since last hgba1c elevated Physical Activity: Regular Hypoglycemic spells? No Any visual disturbance? No Chest pain? No New numbness, tingling or loss of sensation? No Any recent foot problems, sores or rashes? No Any recent or sudden weight loss? No Change in urination? none. If yes: Any recent illness? No Last eye exam: due. Last foot exam: due. HBA1C: Hemoglobin A1C (%) Date Value 07/28/2023 8.4 02/25/2023 7.1 10/25/2021 7.6 07/13/2021 7.5 ) CMP: Glucose 132 02/25/2023 BUN 19 02/25/2023 Creatinine 0.99 02/25/2023 Sodium 138 02/25/2023 Potassium 3.8 (more content not included)... [facility] 08-15-2023 History of Presen t illness Narrative 62 year old male with c/o here for followup Ashd (arteriosclerotic heart disease) (primary encounter diagnosis) Nstemi (non-st elevated myocardial infarction) ([facility]) Presence of bare metal stent in right coronary artery Essential hypertension, benign Hyperlipidemia ldl goal <100 Cardiovascular interval hx: 06/09/2023 last cardiology f/u Dr. Long:stable 11/12/2021 [place] card perf stress exercise CONCLUSIONS: 1. SPECT Perfusion Study: Normal. 2. There is no scintigraphic evidence for inducible ischemia. 3. No evidence of scarred myocardium. 4. Left ventricle is normal in size. The left ventricle systolic function is hyperdynamic. 5. Right ventricle is normal in size. The right ventricle systolic function is normal. 6. This is a low risk scan. Gated Stress FBP LVEF % 83 04/19/2014 admitted to [facility] with NSTEMI, 1 hour of chest discomfort associated with weakness and tiredness initially low molecular weight heparin, statin therapy, antiplatelets. Underwent coronary angiography w/ tight distal RCA stenosis, transferred to [facility] where he underwent RCA PTCA and stent 04/18/2014 admitted to [facility] with acute coronary syndrome and chest pain described as substernal pressure 5/10 Current meds: Amlodipine 10 mg daily Atenolol-chlorthalidone 100-25 mg tablet daily Atorvastatin 80 mg daily Losartan 50 mg daily Potassium chloride 20 mEq daily Use of NTG: No Chest pain, arm, jaw pain, neck, or upper back pain suggestive of angina: No. SOB: No Dyspnea with exertion: some with running up and stairs a few times. orthopnea: No Cough : No racing or irregular heartbeats: No palpitations: No syncopal sx: No Headache: No Unexplainable fatigue No Leg swelling: No more than imprint of socks. Nausea: No diaphoresis: No Heartburn: No Claudication: No Smoking: No Following Low cholesterol, high fiber diet? Yes If on statin: muscle aches? No If on statin: GI sx or diarrhea? No Additional history none. Lab review: Component Latest Ref Rng & Units 08/22/2022 02/25/2023 WBC 3.70 - 11.00 k/uL 7.69 8.57 RBC 4.20 - 6.00 m/uL 5.34 5.19 Hemoglobin 13.0 - 17.0 g/dL 14.8 14.3 Hematocrit 39.0 - 51.0 % 44.7 42.9 MCV 80.0 - 100.0 fL 83.7 82.7 MCH 26.0 - 34.0 pg 27.7 27.6 MCHC 30.5 - 36.0 g/dL 33.1 33.3 RDW-CV 11.5 - 15.0 % 13.2 13.1 Platelet Count 150 - 400 k/uL 313 265 MPV 9.0 - 12.7 fL 11.2 11.3 Neut% % 61.2 64.4 Abs Neut (ANC) 1.45 - 7.50 k/uL 4.71 5.52 Lymph% % 25.4 22.1 Abs Lymph 1.00 - 4.00 k/uL 1.95 1.89 Travis% % 9.0 8.5 Abs Travis <0.87 k/uL 0.69 0.73 Eosin% % 3.4 3.5 Abs Eosin <0.46 k/uL 0.26 0.30 Baso% % 0.9 0.8 Abs Baso <0.11 k/uL 0.07 0.07 Immature Gran % % 0.1 0.7 IMMATURE GRANS (ABS) <0.10 k/uL <0.03 0.06 NRBC /100 WBC 0.0 0.0 Absolute nRBC <0.01 k/uL <0.01 <0.01 DTYPE Auto Auto Protein, Total 6.3 - 8.0 g/dL 7.1 7.0 Albumin 3.9 - 4.9 g/dL 4.5 4.2 Calcium 8.5 - 10.2 mg/dL 9.6 9.5 Bilirubin, Total 0.2 - 1.3 mg/dL 0.4 0.4 Alkaline Phosphatase 38 - 113 U/L 54 59 AST 14 - 40 U/L 19 22 ALT 10 - 54 U/L 21 21 Glucose 74 - 99 mg/dL 128 (H) 132 (H) BUN 9 - 24 mg/dL 21 19 Creatinine 0.73 - 1.22 mg/dL 1.08 0.99 Sodium 136 - 144 mmol/L 139 138 Potassium 3.7 - 5.1 mmol/L 3.5 (L) 3.8 Chloride 97 - 105 mmol/L 99 99 CO2 22 - 30 mmol/L 27 26 Anion Gap 9 - 18 mmol/L 13 13 eGFR >=60 mL/min/1.73m 78 86 Cholesterol, Total <200 mg/dL 128 121 Triglyceride <150 mg/dL 194 (H) 145 HDL Cholesterol >39 mg/dL 31 (L) 35 (L) Non HDL Cholesterol <130 mg/dL 97 86 Fasting Time hrs 14 12 VLDL Cholesterol <30 mg/dL 39 (H) 29 TC:HDL Ratio <5.10 4.13 3.46 LDL Cholesterol <100 mg/dL 58 57 LDL:HDL Ratio <2.54 1.87 1.63 Magnesium 1.7 - 2.3 mg/dL 1.9 Controlled type 2 diabetes mellitus without complication, without long-term current use of insulin (hcc) Current medications: Metformin 500 mg 1 tablets twice daily with meals Taking medication as directed consistently? Yes Medication side effects: causes upset stomach Medical Issues / Complications: hypertension, hyperlipidemia, and cardiovascular disease Checking blood sugars at home? Yes. Fasting 166-188-200 Watching diet? Has changed diet since last hgba1c elevated Physical Activity: Regular Hypoglycemic spells? No Any visual disturbance? No Chest pain? No New numbness, tingling or loss of sensation? No Any recent foot problems, sores or rashes? No Any recent or sudden weight loss? No Change in urination? none. If yes: Any recent illness? No Last eye exam: due. Last foot exam: due. HBA1C: Hemoglobin A1C (%) Date Value 07/28/2023 8.4 02/25/2023 7.1 10/25/2021 7.6 07/13/2021 7.5 ) CMP: Glucose 132 02/25/2023 BUN 19 02/25/2023 Creatinine 0.99 02/25/2023 Sodium 138 02/25/2023 Potassium 3.8 02/25/2023 Chloride 99 02/25/2023 CO2 26 02/25/2023 Protein, Total 7.0 02/25/2023 Albumin 4.2 02/25/2023 Calcium 9.5 02/25/2023 Alkaline Phosphatase 59 02/25/2023 Bilirubin, Total 0.4 02/25/2023 AST 22 02/25/2023 ALT 21 02/25/2023 Component Latest Ref Rng & Units 07/13/2021 08/22/2022 Creatinine, Ur Random (UCRR) 20.0 - 300.0 mg/dL 82.5 26.9 Albumin, Urine Random mg/L <12.0 <12.0 Albumin/Creat Ratio Not calculated Last 2 Encounter Wt Readings: Date: Wt: 06/09/2023 96.6 kg (213 lb) 02/25/2023 94.8 kg (209 lb) Mild intermittent asthma with acute exacerbation No meds, Doing well. Gastroesophageal reflux disease without esophagitis Current medication: Omeprazole 40 mg daily AC. Current symptoms: none unless misses a dose. Last Mg level if on PPI chronically: none. Heartburn is controlled: Yes. Dysphagia: No. Bloody or black stools: No. Bowel changes: No. Last EGD and/or colonoscopy: 08/03/2013 EGD - Z-line regular. - Erythema at the gastroesophageal junction. - Incompetent lower esophageal sphincter. - Hiatus hernia. - Erosive gastropathy. - Normal mucosa was found in the entire examined duodenum. - Biopsies were taken with a cold forceps for Helicobacter pylori testing: negative 08/03/2023 Colonoscopy - Non-bleeding internal hemorrhoids. - Tortuous colon. Recommendation: - Collect Hemoccults on three spontaneously passed annually - Repeat colonoscopy in 10 years for screening purposes. Prostate cancer (hcc) Robotic lap radical prostatectomy Dr. Alvarado Carely score 6, left apical FINAL DIAGNOSIS 1. Prostate, right base lateral, needle biopsy (A) - Benign prostatic tissue with atrophy and focal chronic inflammation. 2. Prostate, right mid lateral, needle biopsy (B) - Benign prostatic tissue with atrophy. 3. Prostate, right apex lateral, needle biopsy (C) - Benign prostatic tissue. 4. Prostate, right base medial, needle biopsy (D) - Benign prostatic tissue with focal atrophy and acute and chronic inflammation. 5. Prostate, right mid medial, needle biopsy (E) - Benign prostatic tissue. 6. Prostate, right apex medial, needle biopsy (F) - Prostatic tissue with small focus of atypical glands, highly suspicious for prostatic adenocarcinoma. (See comment) 7. Prostate, left base lateral, needle biopsy (G) - Benign prostatic tissue with focal atrophy. 8. Prostate, left mid lateral, needle biopsy (H) - Benign prostatic tissue with focal atrophy. 9. Prostate, left apex lateral, needle biopsy (I) - Benign prostatic tissue. 10. Prostate, left base medial, needle biopsy (J) - Benign prostatic tissue with focal atrophy and chronic inflammation. 11. Prostate, left mid medial, needle biopsy (K) - Benign prostatic tissue with focal atrophy and chronic inflammation. 12. Prostate, left apex medial, needle biopsy (L) - Adenocarcinoma of the prostate, [place] score 3+3=6 involving 90% of one of one core and measuring 5.5 mm. (See comment) CMG/PCF/mal/10/19/2013 COMMENT F. Although the findings are atypical and suspicious for prostatic adenocarcinoma, there is insufficient cytologic and/or architectural atypia to establish a definitive diagnosis. Negative staining for p63 and weak positive staining for racemase (P504s) in a small focus are not diagnostic of cancer. L. The diagnosis of carcinoma is supported by the failure of immunoperoxidase staining for p63 to demonstrate basal cells in the atypical glands. ANALYTE SPECIFIC REAGENT (ASR) DISCLAIMER This test was developed and its performance characteristics determined by [facility] [place]. The U.[place]. Food and Drug Administration has not approved or cleared this test; however, FDA clearance or approval is not currently required for clinical use. Aylin Gabriel M.D., Ph.D. (Electronic Signature) ___ SPECIMEN SUBMITTED A: RIGHT BASE LATERAL PROSTATE, BIOPSY B: RIGHT MID LATERAL PROSTATE, BIOPSY C: RIGHT APEX LATERAL PROSTATE, BIOPSY D: RIGHT BASE MEDIAL PROSTATE, BIOPSY E: RIGHT MID MEDIAL PROSTATE, BIOPSY F: RIGHT APEX MEDIAL PROSTATE, BIOPSY G: LEFT BASE LATERAL PROSTATE, BIOPSY H: LEFT MID LATERAL PROSTATE, BIOPSY I: LEFT APEX LATERAL PROSTATE, BIOPSY J: LEFT BASE MEDIAL PROSTATE, BIOPSY K: LEFT MID MEDIAL PROSTATE, BIOPSY L: LEFT APEX MEDIAL PROSTATE, BIOPSY CLINICAL DATA ELEVATED PSA GROSS DESCRIPTION A. Received in alcoholic formalin on Telfa gauze is a single segment of cylindrical tissue measuring 2.0 x 0.1 x 0.1 cm, flynn and of a soft and friable consistency. Totally submitted in formalin in one cassette. B. Received in alcoholic formalin on Telfa gauze is a single segment of cylindrical tissue measuring 1.6 x 0.1 x 0.1 cm, flynn and of a soft and friable consistency. Totally submitted in formalin in one cassette. C. Received in alcoholic formalin on Telfa gauze is a single segment of cylindrical tissue measuring 1.5 x 0.1 x 0.1 cm, flynn and of a soft and friable consistency. Totally submitted in formalin in one cassette. D. Received in alcoholic formalin on Telfa gauze is a single segment of cylindrical tissue measuring 2.2 x 0.1 x 0.1 cm, flynn and of a soft and friable consistency. Totally submitted in formalin in one cassette. E. Received in alcoholic formalin on Telfa gauze is a single segment of cylindrical tissue measuring 2.1 x 0.1 x 0.1 cm, flynn and of a soft and friable consistency. Totally submitted in formalin in one cassette. F. Received in alcoholic formalin on Telfa gauze is a single segment of cylindrical tissue measuring 2.4 x 0.1 x 0.1 cm, flynn and of a soft and friable consistency. Totally submitted in formalin in one cassette. G. Received in alcoholic formalin on Telfa gauze is a single segment of cylindrical tissue measuring 1.7 x 0.1 x 0.1 cm, flynn and of a soft and friable consistency. Totally submitted in formalin in one cassette. H. Received in alcoholic formalin on Telfa gauze is a single segment of cylindrical tissue measuring 1.5 x 0.1 x 0.1 cm, flynn and of a soft and friable consistency. Totally submitted in formalin in one cassette. I. Received in alcoholic formalin on Telfa gauze is a single segment of cylindrical tissue measuring 1.8 x 0.1 x 0.1 cm, flynn and of a soft and friable consistency. Totally submitted in formalin in one cassette. J. Received in alcoholic formalin on Telfa gauze is a single segment of cylindrical tissue measuring 1.6 x 0.1 x 0.1 cm, flynn and of a soft and friable consistency. Totally submitted in formalin in one cassette. K. Received in alcoholic formalin on Telfa gauze is a single segment of cylindrical tissue measuring 1.8 x 0.1 x 0.1 cm, flynn and of a soft and friable consistency. Totally submitted in formalin in one cassette. L. Received in alcoholic formalin on Telfa gauze is a single segment of cylindrical tissue measuring 1.6 x 0.1 x 0.1 cm, flynn and of a soft and friable consistency. Totally submitted in formalin in one cassette. MMD 10/18/2013 9:58:53 PM 10/18/2013 TRUS procedure with biopsy Dr. Quevedo Obesity, class i, bmi 30-34.9 Vitals 09/20/2021 10/29/2021 06/10/2022 08/27/2022 01/23/2023 02/25/202306/0906/09/2023 WEIGHT in POUNDS 215 lb 9.6 oz 216 lb 216 lb 205 lb 208 lb 3.2 oz 209 lb 213 lb WEIGHT in KILOGRAMS 97.796 kg 97.977 kg 97.977 kg 92.987 kg 94.439 kg 94.802 kg 96.616 kg Chronic gout without tophus, unspecified cause, unspecified site Current medications: Allopurinol 100 mg daily Component Latest Ref Rng & Units 07/13/2021 02/25/2023 Uric Acid 4.0 - 8.1 mg/dL 4.5 5.1 HISTORIES FAMILY HISTORY Problem Relation Age of Onset Diabetes Mother Hypertension Mother Macular Degen Mother None Father PAST MEDICAL HISTORY Diagnosis Date ASHD (arteriosclerotic heart disease) 04/26/2014 BCC (basal cell carcinoma of skin) Controlled type 2 diabetes mellitus without complication, without long-term current use of insulin ([facility]) 07/15/2017 Esophageal reflux Essential hypertension, benign age 18 GERD (gastroesophageal reflux disease) 05/21/2010 Gout 01/08/2012 Hyperlipidemia LDL goal <100 12/05/2015 HYPERLIPIDEMIA NEC/NOS 10/30/2005 Hypokalemia 01/20/2018 Lipoma 01/08/2012 Lumbago DDD Mild intermittent asthma with acute exacerbation 04/12/2019 NSTEMI (non-ST elevated myocardial infarction) ([facility]) 04/26/2014 PARALYSIS OF the DIAPHRAGM 10/15/2006 resolved by 2013 Presence of bare metal stent in right coronary artery 04/26/2014 Prostate nodule 08/11/2013 PAST SURGICAL HISTORY Procedure Laterality Date BRONCHOSCOPY COLONOSCOPY FLX DX W/COLLJ SPEC WHEN PFRMD 08/03/2013 Colonoscopy ESOPHAGOGASTRODUODENOSCOPY TRANSORAL DIAGNOSTIC 08/03/2013 EGD HEART CATHETERIZATION 04/19/14 stent placement MAL LESION FACE,EAR,EYEL 1.1-2CM 06/23/13 Exc. BCC right taoism/cheek PROSTATE NEEDLE BIOPSY ANY APPROACH 01/27/2017 Transrectal bx, prostate - fusion Dr Alvarado Social History Tobacco Use Smoking status: Former Packs/day: 3.00 Years: 7.00 Additional pack years: 0.00 Total pack years: 21.00 Types: Cigarettes Quit date: 02/06/1987 Years since quittin.5 Smokeless tobacco: Never Vaping Use Vaping Use: Never used Substance Use Topics Alcohol use: Not Currently Comment: RARE Drug use: No ACTIVE PROBLEM LIST Lumbago Essential Hypertension, Benign Gerd (Gastroesophageal Reflux Disease) Gout Lipoma Nstemi (Non-St Elevated Myocardial Infarction) ([facility]) Ashd (Arteriosclerotic Heart Disease) Presence of Bare Metal Stent in Right Coronary Artery Hyperlipidemia Ldl Goal <100 Prostate Cancer ([facility]) Controlled Type 2 Diabetes Mellitus Without Complication, Without Long-Term Current Use of Insulin ([facility]) Obesity, Class I, Bmi 30-34.9 Hypokalemia Mild Intermittent Asthma With Acute Exacerbation Shoulder Impingement Syndrome, Right Tachycardia Current Outpatient Medications Medication Sig Dispense Refill amLODIPine (NORVASC) 10 mg tablet Take 1 tablet by mouth once daily. 90 tablet 0 losartan (COZAAR) 50 mg tablet Take 2 tablets by mouth once daily. 180 tablet 1 metFORMIN (GLUCOPHAGE) 500 mg tablet Take 2 tablets by mouth twice daily with meals. 180 tablet 3 atorvastatin (LIPITOR) 80 mg tablet Take 1 tablet by mouth once daily. 90 tablet 3 omeprazole (PRILOSEC) 40 mg capsule Take 1 capsule by mouth once daily. 90 capsule 3 Atenolol-Chlorthalidone (TENORETIC 100) 100-25 mg per tablet Take 1 tablet by mouth once daily. 90 tablet 3 allopurinol (ZYLOPRIM) 100 mg tablet Take 1 tablet by mouth once daily. For gout. 90 tablet 3 potassium chloride ER (KLOR-CON M20) 20 mEq tablet Take 1 tablet by mouth once daily. 90 tablet 3 blood sugar diagnostic (BLOOD GLUCOSE TEST) test strip Test blood sugar(s) 1-2 times daily. Dx: Type 2 DM - Controlled E11.9 Insulin: No What insurance will cover 100 Strip 3 Lancets lancets Test blood sugar(s) 1-2 times daily. Dx: Type 2 DM - Controlled E11.9 Insulin: No 100 Each 3 aspirin, enteric coated (ADULT LOW DOSE ASPIRIN) 81 mg EC tablet Take 1 tablet by mouth once daily. 0 Blood-Glucose Meter monitoring kit 1 Each as needed (1-2 times/day). Meter insurance will cover. 1 Each 0 No current facility-administered medications for this visit. Spirometry Never done BP Controlled (<130/80) Never done Shingrix Vaccine(1 of 2) Never done RSV Vaccine(1 - 1-dose 60+ series) Never done Depression Assessment Never done Influenza Vaccine(1) due on 05/09/2023 Colorectal Cancer Screening due on 08/03/2023 Urine Albumin:Creatinine Ratio due on 08/22/2023 Diabetic Foot Exam due on 08/27/2023 Dilated Retinal Exam due on 09/12/2023 EXAM: BP 130/82 Pulse 60 Resp 16 Wt 95.7 kg (211 lb) SpO2 100% BMI 32.92 kg/m Pleasant overweight adult man in no acute distress. Alert and oriented all spheres. Normal affect and cognition. Speech normal. No deficits to learning or comprehension. Skin warm, dry, pink to lips and nailbeds. Normal turgor. Multiple moles and keratoses. Respirations regular and unlabored. HEENT: NCAT. No scleral icterus or conjunctival injection. TM's clear. Nose and oropharynx free from injection or lesion. Oral membranes moist and pink. No cervical lymph nodes. Thyroid non-tender, no masses, or enlargement. Carotids pulses 2+/4+ without bruits. No JVD with HOB at 30 degrees. Chest is normal shape. Lungs are clear to all sequeira with good air exchange through out. HRRR without murmur or gallop. No lifts, heaves, or rubs. Extrem: no clubbing or cyanosis. Edema: none. Extremities are warm and pink with prompt capillary refill. ASSESSMENT/PLAN: 1. ASHD (arteriosclerotic heart disease) - ICD9: 414.00, ICD10: I25.10 (primary diagnosis) 2. NSTEMI (non-ST elevated myocardial infarction) (HCC) - ICD9: 410.70, ICD10: I21.4 3. Presence of bare metal stent in right coronary artery - ICD9: V45.82, ICD10: Z95.5 Stable, hyperdynamic EF, normal wall motions 4. Essential hypertension, benign - ICD9: 401.1, ICD10: I10 - Controlled - Continue current medications - Recommend home blood pressure monitoring, to bring results to next visit - Encouraged sodium restriction, DASH or Mediterranean diet - Recommend regular aerobic exercise - ATENOLOL 100 MG-CHLORTHALIDONE 25 MG TABLET - BASIC METABOLIC PNL 5. Hyperlipidemia LDL goal <100 - ICD9: 272.4, ICD10: E78.5 - Controlled - Continue current medications - Counseled on healthy diet and regular exercise - ATORVASTATIN 80 MG TABLET 6. Controlled type 2 diabetes mellitus without complication, without long-term current use of insulin (HCC) - ICD9: 250.00, ICD10: E11.9 - improving control: wants to work on lifestyle changes for 3 months before changing meds: recheck hgba1c 3 months - Continue current medications - METFORMIN 500 MG TABLET - ALBUMIN/CREAT RATIO RND UR - HGB A1C - BASIC METABOLIC PNL 7. Mild intermittent asthma with acute exacerbation - ICD9: 493.92, ICD10: J45.21 - Mild intermittent asthma stable - Continue current medications - Avoidance of triggers recommended 8. Gastroesophageal reflux disease without esophagitis - ICD9: 530.81, ICD10: K21.9 - Discussed lifestyle modifications including losing weight, limiting caffeine, no meals three hours before sleep, and head of bed elevation Controlled on omeprazole: continue - OMEPRAZOLE 40 MG CAPSULE,DELAYED RELEASE 9. Prostate cancer (HCC) - ICD9: 185, ICD10: C61 Checks all non-measurable, recheck annually - PSA/PROSTSPECAG DIAG 10. Obesity, Class I, BMI 30-34.9 - ICD9: 278.00, ICD10: E66.9 Wants to work on diet and exercise for 3 months Discussed diet, exercise, medication options 11. Chronic gout without tophus, unspecified cause, unspecified site - ICD9: 274.02, ICD10: M1A.9XX0 refill - ALLOPURINOL 100 MG TABLET 12. Hypokalemia - ICD9: 276.8, ICD10: E87.6 refill - POTASSIUM CHLORIDE ER 20 MEQ TABLET,EXTENDED RELEASE(PART/CRYST) F/u 6 months Raissa Gaines PA-C Some of this note may have been copied and pasted for the purpose of history context and comparison and has been adjusted for changes in prior data. Raissa Gaines PA-C documented in this encounter [facility] 07-30-2023 Miscellaneous Notes Pt called and is notified of providers message. Pt voices understanding. Meagan Brennan RN Noted. Recheck in labs in 3 months. Order is in. Kandy Narvaez APRN.ANTOINE Pt called and is notified of providers message. Pt voices understanding, but doesn't want to start injections. Pt said he will go back to the Metformin TID, he says he knows it works. Please call and advise. Meagan Brennan, RN I think we need to add something. Is he okay doing the one of the newer medications (like the weekly ozempic injections)? TC to pt, notified of results. Pt states he has not been taking metformin like he should have been. Pt states he dropped back to 1 tablet daily. Advised rx states 2 tabs twice daily. He states he has never taken that much metformin. He started with 3 tablets daily, but it caused a lot of stomach issues so was told he could cut back to 2 tablets daily. Pt cut back to 1 tablet daily on his own. Please advise. Abdulaziz Banuelos Can please let patient know that I received his lab results. His A1C went up. Is he still taking the metformin? We may need to add something else. Kandy Narvaez APRN.ANTOINE documented in this encounter [facility] 07-28-2023 Miscellaneous Notes Patient has been identified by name and date of : Yes Requested Prescriptions Pending Prescriptions Disp Refills amLODIPine (NORVASC) 10 mg tablet 90 tablet 0 Sig: Take 1 tablet by mouth once daily. RX INSTRUCTIONS: Patient aware RX will be sent to pharmacy. No need to notify patient. KHOI 02/25/23 No visit scheduled. Has a A1C completed today ordered by Kandy Sparrow LPN documented in this encounter [facility] 06-09-2023 Note HNO ID: [id number] Author: Santana Long MD Service: ? Author Type: Physician Type: Progress Notes Filed: 06/09/2023 9:31 AM Note Text: Santana Long MD Interventional Cardiology [address] [place] [address] Chief Complaint Patient presents with: Established Patient Follow-Up HISTORY OF PRESENT ILLNESS: Mr. Crystal is a 62 year old male seen in my office today prior history of coronary artery disease with proximal RCA angioplasty with drug-eluting stent Doing well from the cardiac point of view asymptomatic denies chest pain or shortness of breath On good medical therapy Cardiac Risk Factors age (male over 45, female over 55), hyperlipidemia, diabetes, hypertension, family history of CAD PAST MEDICAL HISTORY Diagnosis Date ASHD (arteriosclerotic heart disease) 04/26/2014 BCC (basal cell carcinoma of skin) Controlled type 2 diabetes mellitus without complication, without long-term current use of insulin (HCC) 07/15/2017 Esophageal reflux Essential hypertension, benign age 18 GERD (gastroesophageal reflux disease) 05/21/2010 Gout 01/08/2012 Hyperlipidemia LDL goal <100 12/05/2015 HYPERLIPIDEMIA NEC/NOS 10/30/2005 Hypokalemia 01/20/2018 Lipoma 01/08/2012 Lumbago DDD Mild intermittent asthma with acute exacerbation 04/12/2019 NSTEMI (non-ST elevated myocardial infarction) ([facility]) 04/26/2014 PARALYSIS OF the DIAPHRAGM 10/15/2006 resolved by 2013 Presence of bare metal stent in right coronary artery 04/26/2014 Prostate nodule 08/11/2013 PAST SURGICAL HISTORY Procedure Laterality Date BRONCHOSCOPY COLONOSCOPY FLX DX W/COLLJ SPEC WHEN PFRMD 08/03/2013 Colonoscopy ESOPHAGOGASTRODUODENOSCOPY TRANSORAL DIAGNOSTIC 08/03/2013 EGD HEART CATHETERIZATION 04/19/14 stent placement MAL LESION FACE,EAR,EYEL 1.1-2CM 06/23/13 Exc. BCC right taoism/cheek PROSTATE NEEDLE BIOPSY ANY APPROACH 01/27/2017 Transrectal bx, prostate - fusion Dr Alvarado FAMILY HISTORY Problem Relation Age of Onset Diabetes Mother Hypertension Mother Macular Degen Mother None Father Social History Tobacco Use Smoking status: Former Packs/day: 3.00 Years: 7.00 Additional pack years: 0.00 Total pack years: 21.00 Types: Cigarettes Quit date: 02/06/1987 Years since quittin.3 Smokeless tobacco: Never Vaping Use Vaping Use: Never used Substance Use Topics Alcohol use: Not Currently Comment: RARE Drug use: No ALLERGIES Allergen Reactions Lisinopril Cough Medications: Current Outpatient Medications Medication Sig Dispense Refill amLODIPine (NORVASC) 10 mg tablet Take 1 tablet by mouth once daily. 90 tablet 0 metFORMIN (GLUCOPHAGE) 500 mg tablet Take 2 tablets by mouth twice daily with meals. 180 tablet 3 losartan (COZAAR) 50 mg tablet Take 2 tablets by mouth once daily. 180 tablet 3 atorvastatin (LIPITOR) 80 mg tablet Take 1 tablet by mouth once daily. 90 tablet 3 omeprazole (PRILOSEC) 40 mg capsule Take 1 capsule by mouth once daily. 90 capsule 3 Atenolol-Chlorthalidone (TENORETIC 100) 100-25 mg per tablet Take 1 tablet by mouth once daily. 90 tablet 3 allopurinol (ZYLOPRIM) 100 mg tablet Take 1 tablet by mouth once daily. For gout. 90 tablet 3 potassium chloride ER (KLOR-CON M20) 20 mEq tablet Take 1 tablet by mouth once daily. 90 tablet 3 blood sugar diagnostic (BLOOD GLUCOSE TEST) test strip Test blood sugar(s) 1-2 times daily. Dx: Type 2 DM - Controlled E11.9 Insulin: No What insurance will cover 100 Strip 3 Lancets lancets Test blood sugar(s) 1-2 times daily. Dx: Type 2 DM - Controlled E11.9 Insulin: No 100 Each 3 aspirin, enteric coated (ADULT LOW DOSE ASPIRIN) 81 mg EC tablet Take 1 tablet by mouth once daily. 0 Blood-Glucose Meter monitoring kit 1 Each as needed (1-2 times/day). Meter insurance will cover. 1 Each 0 No current facility-administered medications for this visit. Review of Systems Constitutional: Negative for chills, diaphoresis, fever, malaise/fatigue and weight loss. HENT: Negative for congestion, ear discharge, ear pain, hearing loss, nosebleeds, sinus pain, sore throat and tinnitus. Eyes: Negative for blurred vision, double vision, photophobia, pain, discharge and redness. Respiratory: Negative for cough, hemoptysis, sputum production, shortness of breath, wheezing and stridor. Cardiovascular: Negative for chest pain, palpitations, orthopnea, claudication, leg swelling and PND. Gastrointestinal: Negative for abdominal pain, blood in stool, constipation, diarrhea, heartburn, melena, nausea and vomiting. Genitourinary: Negative for dysuria, flank pain, frequency, hematuria and urgency. Musculoskeletal: Negative for back pain, falls, joint pain, myalgias and neck pain. Skin: Negative for itching and rash. Neurological: Negative for dizziness, tingling, tremors, sensory change, speech change, focal weakness, seizures, loss of consciousness, weakness and headaches. Endo/Heme/All (more content not included)... [facility] 02-25-2023 Note HNO ID: [id number] Author: Kandy Narvaez APRN.[employer] Service: ? Author Type: Nurse Practitioner Type: Progress Notes Filed: 02/25/2023 6:49 PM Note Text: This is a 62 year old male who presents today with: Patient presents with: Follow Up HISTORY OF PRESENT ILLNESS: Freedom Crystal is a 62 year old male. Patient presents with: Follow Up DM: Reports overall feeling well. Medication side effects: No. Home sugar checks: under 200. Hypoglycemic spells: No. Watching diet: Yes. Watching portions. Unexpected weight loss: No. Polyuria, polydipsia: No. Vision Changes: No. Had recent eye visit. Foot lesions or numbness or pain: No. HYPERLIPIDEMIA: Patient is taking medications: Yes. Patient is watching diet: Yes. Patient denies myalgias: Yes. Patient denies gi upset: Yes HTN: Patient is compliant with meds Yes Monitors bp at home: sometimes. Denies side effects: Yes. Chest pain: No. Dyspnea: No. Edema: sometimes will get some sock-lines -- goes away over night. Palpitations: No. Syncope: No. Headache: No. Dizziness: yes -- related to ears. Prostate CA: Hx of removed. Asthma Has been controlled. Hasn't needed inhaler. GERD Controlled w/ omeprazole. Gout No issues in several years. Controlled w/ allopurinol. Lipoma Left breast. Has been present for many years. Unchanged. PAST MEDICAL HISTORY: PAST MEDICAL HISTORY Diagnosis Date ASHD (arteriosclerotic heart disease) 04/26/2014 BCC (basal cell carcinoma of skin) Controlled type 2 diabetes mellitus without complication, without long-term current use of insulin (HCC) 07/15/2017 Esophageal reflux Essential hypertension, benign age 18 GERD (gastroesophageal reflux disease) 05/21/2010 Gout 01/08/2012 Hyperlipidemia LDL goal <100 12/05/2015 HYPERLIPIDEMIA NEC/NOS 10/30/2005 Hypokalemia 01/20/2018 Lipoma 01/08/2012 Lumbago DDD Mild intermittent asthma with acute exacerbation 04/12/2019 NSTEMI (non-ST elevated myocardial infarction) ([facility]) 04/26/2014 PARALYSIS OF the DIAPHRAGM 10/15/2006 resolved by 2013 Presence of bare metal stent in right coronary artery 04/26/2014 Prostate nodule 08/11/2013 PAST SURGICAL HISTORY Procedure Laterality Date BRONCHOSCOPY COLONOSCOPY FLX DX W/COLLJ SPEC WHEN PFRMD 08/03/2013 Colonoscopy ESOPHAGOGASTRODUODENOSCOPY TRANSORAL DIAGNOSTIC 08/03/2013 EGD HEART CATHETERIZATION 04/19/14 stent placement MAL LESION FACE,EAR,EYEL 1.1-2CM 06/23/13 Exc. BCC right taoism/cheek PROSTATE NEEDLE BIOPSY ANY APPROACH 01/27/2017 Transrectal bx, prostate - fusion Dr Alvarado ALLERGIES Lisinopril MEDICATIONS Current Outpatient Medications Medication Sig amLODIPine (NORVASC) 10 mg tablet Take 1 tablet by mouth once daily. metFORMIN (GLUCOPHAGE) 500 mg tablet Take 2 tablets by mouth twice daily with meals. losartan (COZAAR) 50 mg tablet Take 2 tablets by mouth once daily. atorvastatin (LIPITOR) 80 mg tablet Take 1 tablet by mouth once daily. omeprazole (PRILOSEC) 40 mg capsule Take 1 capsule by mouth once daily. Atenolol-Chlorthalidone (TENORETIC 100) 100-25 mg per tablet Take 1 tablet by mouth once daily. allopurinol (ZYLOPRIM) 100 mg tablet Take 1 tablet by mouth once daily. For gout. potassium chloride ER (KLOR-CON M20) 20 mEq tablet Take 1 tablet by mouth once daily. blood sugar diagnostic (BLOOD GLUCOSE TEST) test strip Test blood sugar(s) 1-2 times daily. Dx: Type 2 DM - Controlled E11.9 Insulin: No What insurance will cover Lancets lancets Test blood sugar(s) 1-2 times daily. Dx: Type 2 DM - Controlled E11.9 Insulin: No aspirin, enteric coated (ADULT LOW DOSE ASPIRIN) 81 mg EC tablet Take 1 tablet by mouth once daily. Blood-Glucose Meter monitoring kit 1 Each as needed (1-2 times/day). Meter insurance will cover. fluticasone (FLONASE) 50 mcg/actuation nasal spray Use 2 Sprays in each nostril once daily. Rinse mouth after use. No current facility-administered medications for this visit. FAMILY HISTORY Problem Relation Age of Onset Diabetes Mother Hypertension Mother Macular Degen Mother None Father Social History Tobacco Use Smoking status: Former Packs/day: 3.00 Years: 7.00 Pack years: 21.00 Types: Cigarettes Quit date: 02/06/1987 Years since quittin.0 Smokeless tobacco: Never Vaping Use Vaping Use: Never used Substance Use Topics Alcohol use: Not Currently Comment: RARE Drug use: No EXAM: BP 128/82 Pulse 61 Resp 16 Wt 94.8 kg (209 lb) SpO2 97% BMI 32.61 kg/m? PHYSICAL EXAM: General Appearance: Well appearing, alert, in no acute distress, well-hydrated, well nourished.. Skin: Skin color, texture, turgor normal, no suspicious rashes or lesions. Several lipomas around the left breast. Smooth, mobile. Head: Normocephalic, no masses, lesions, tenderness or abnormalities. Eyes: Anicteric sclera. Extraocular movements are intact. . Neck: Supple, no adenopathy; thyroid symmetric, normal s (more content not included)... [facility] 02-25-2023 Instructions Kandy Narvaez APRN.CNP - 02/25/2023 9:02 AM EDT Get labwork. Continue the same medications. We'll fax referral over to Dr. Geiger's office. If you haven't heard from them, please call them to schedule. documented in this encounter [facility] 02-25-2023 History of Presen t illness Narrative This is a 62 year old male who presents today with: Patient presents with: Follow Up HISTORY OF PRESENT ILLNESS: Freedom Crystal is a 62 year old male. Patient presents with: Follow Up DM: Reports overall feeling well. Medication side effects: No. Home sugar checks: under 200. Hypoglycemic spells: No. Watching diet: Yes. Watching portions. Unexpected weight loss: No. Polyuria, polydipsia: No. Vision Changes: No. Had recent eye visit. Foot lesions or numbness or pain: No. HYPERLIPIDEMIA: Patient is taking medications: Yes. Patient is watching diet: Yes. Patient denies myalgias: Yes. Patient denies gi upset: Yes HTN: Patient is compliant with meds Yes Monitors bp at home: sometimes. Denies side effects: Yes. Chest pain: No. Dyspnea: No. Edema: sometimes will get some sock-lines -- goes away over night. Palpitations: No. Syncope: No. Headache: No. Dizziness: yes -- related to ears. Prostate CA: Hx of removed. Asthma Has been controlled. Hasn't needed inhaler. GERD Controlled w/ omeprazole. Gout No issues in several years. Controlled w/ allopurinol. Lipoma Left breast. Has been present for many years. Unchanged. PAST MEDICAL HISTORY: PAST MEDICAL HISTORY Diagnosis Date ASHD (arteriosclerotic heart disease) 04/26/2014 BCC (basal cell carcinoma of skin) Controlled type 2 diabetes mellitus without complication, without long-term current use of insulin ([facility]) 07/15/2017 Esophageal reflux Essential hypertension, benign age 18 GERD (gastroesophageal reflux disease) 05/21/2010 Gout 01/08/2012 Hyperlipidemia LDL goal <100 12/05/2015 HYPERLIPIDEMIA NEC/NOS 10/30/2005 Hypokalemia 01/20/2018 Lipoma 01/08/2012 Lumbago DDD Mild intermittent asthma with acute exacerbation 04/12/2019 NSTEMI (non-ST elevated myocardial infarction) ([facility]) 04/26/2014 PARALYSIS OF the DIAPHRAGM 10/15/2006 resolved by 2013 Presence of bare metal stent in right coronary artery 04/26/2014 Prostate nodule 08/11/2013 PAST SURGICAL HISTORY Procedure Laterality Date BRONCHOSCOPY COLONOSCOPY FLX DX W/COLLJ SPEC WHEN PFRMD 08/03/2013 Colonoscopy ESOPHAGOGASTRODUODENOSCOPY TRANSORAL DIAGNOSTIC 08/03/2013 EGD HEART CATHETERIZATION 04/19/14 stent placement MAL LESION FACE,EAR,EYEL 1.1-2CM 06/23/13 Exc. BCC right taoism/cheek PROSTATE NEEDLE BIOPSY ANY APPROACH 01/27/2017 Transrectal bx, prostate - fusion Dr Alvarado ALLERGIES Lisinopril MEDICATIONS Current Outpatient Medications Medication Sig amLODIPine (NORVASC) 10 mg tablet Take 1 tablet by mouth once daily. metFORMIN (GLUCOPHAGE) 500 mg tablet Take 2 tablets by mouth twice daily with meals. losartan (COZAAR) 50 mg tablet Take 2 tablets by mouth once daily. atorvastatin (LIPITOR) 80 mg tablet Take 1 tablet by mouth once daily. omeprazole (PRILOSEC) 40 mg capsule Take 1 capsule by mouth once daily. Atenolol-Chlorthalidone (TENORETIC 100) 100-25 mg per tablet Take 1 tablet by mouth once daily. allopurinol (ZYLOPRIM) 100 mg tablet Take 1 tablet by mouth once daily. For gout. potassium chloride ER (KLOR-CON M20) 20 mEq tablet Take 1 tablet by mouth once daily. blood sugar diagnostic (BLOOD GLUCOSE TEST) test strip Test blood sugar(s) 1-2 times daily. Dx: Type 2 DM - Controlled E11.9 Insulin: No What insurance will cover Lancets lancets Test blood sugar(s) 1-2 times daily. Dx: Type 2 DM - Controlled E11.9 Insulin: No aspirin, enteric coated (ADULT LOW DOSE ASPIRIN) 81 mg EC tablet Take 1 tablet by mouth once daily. Blood-Glucose Meter monitoring kit 1 Each as needed (1-2 times/day). Meter insurance will cover. fluticasone (FLONASE) 50 mcg/actuation nasal spray Use 2 Sprays in each nostril once daily. Rinse mouth after use. No current facility-administered medications for this visit. FAMILY HISTORY Problem Relation Age of Onset Diabetes Mother Hypertension Mother Macular Degen Mother None Father Social History Tobacco Use Smoking status: Former Packs/day: 3.00 Years: 7.00 Pack years: 21.00 Types: Cigarettes Quit date: 02/06/1987 Years since quittin.0 Smokeless tobacco: Never Vaping Use Vaping Use: Never used Substance Use Topics Alcohol use: Not Currently Comment: RARE Drug use: No EXAM: BP 128/82 Pulse 61 Resp 16 Wt 94.8 kg (209 lb) SpO2 97% BMI 32.61 kg/m PHYSICAL EXAM: General Appearance: Well appearing, alert, in no acute distress, well-hydrated, well nourished.. Skin: Skin color, texture, turgor normal, no suspicious rashes or lesions. Several lipomas around the left breast. Smooth, mobile. Head: Normocephalic, no masses, lesions, tenderness or abnormalities. Eyes: Anicteric sclera. Extraocular movements are intact. . Neck: Supple, no adenopathy; thyroid symmetric, normal size, no bruits. Lungs: Lungs clear to auscultation. No wheezing, rhonchi, rales.. Heart: RRR without murmur, gallop, or rubs. No ectopy. Extremities: No deformities, trace edema - sock lines, no skin discoloration, clubbing or cyanosis. Good capillary refill. Neurologic: Gait normal. ASSESSMENT/PLAN: 1. Controlled type 2 diabetes mellitus without complication, without long-term current use of insulin (HCC) - ICD9: 250.00, ICD10: E11.9 (primary diagnosis) - Control undetermined, due for labs - Continue current medications - HGB A1C - CBC + DIFF 2. Hyperlipidemia LDL goal <100 - ICD9: 272.4, ICD10: E78.5 - Control undetermined, due for labs - Continue current medications - Counseled on healthy diet and regular exercise - LIPID PANEL BASIC 3. Essential hypertension, benign - ICD9: 401.1, ICD10: I10 - Controlled - Continue current medications - Recommend home blood pressure monitoring, to bring results to next visit - Encouraged sodium restriction, DASH or Mediterranean diet - Recommend regular aerobic exercise - COMP METABOLIC PANEL 4. Chronic gout without tophus, unspecified cause, unspecified site - ICD9: 274.02, ICD10: M1A.9XX0 Has been stable. - URIC ACID BLOOD 5. Screening for colon cancer - ICD9: V76.51, ICD10: Z12.11 Requests R Juanjo. - CONSULT TO GENERAL SURGERY 6. Gastroesophageal reflux disease without esophagitis - ICD9: 530.81, ICD10: K21.9 Stable on PPI. 7. ASHD (arteriosclerotic heart disease) - ICD9: 414.00, ICD10: I25.10 Asymptomatic. 8. Mild intermittent asthma with acute exacerbation - ICD9: 493.92, ICD10: J45.21 - Mild intermittent asthma stable - Avoidance of triggers recommended 9. Lipoma of torso - ICD9: 214.1, ICD10: D17.1 Has been unchanged for many years. Offered imaging/mammo for confirmation of dx. He will consider and let provider know. Discussed treatment plan and patient voices understanding. Patient's questions answered appropriately. Medications and potential side effects were discussed and patient voices understanding. Return to the office as scheduled or as needed for worsening/no improvement. Kandy Narvaez APRN.[employer] documented in this encounter [facility] 01-23-2023 Note HNO ID: [id number] Author: Michelle Gunderson LPN Service: ? Author Type: LICENSED NURSE Type: Progress Notes Filed: 01/23/2023 10:35 AM Note Text: Ambulatory Ear Lavage Pre-treatment: No pre-treatment Treatment: Both ears Equipment and Irrigation solution and Volume used: Single use syringe with single use irrigation tip Water Total Irrigation Volume: 600 Return flow appearance: Yellow Cloudy Debris Other clumps of wax Patient tolerated procedure: yes Tympanic membrane assessment: Tympanic membrane assessed by LIP pre and post procedure [facility] 01-23-2023 Note HNO ID: [id number] Author: Marisa Vanegas MD Service: ? Author Type: Physician Type: Progress Notes Filed: 01/23/2023 10:35 AM Note Text: Chief Complaint Patient presents with: Ear Problem: Patient suspects ears are clogged - has been having dizziness for about 2 weeks off and on. HPI Freedom Crystal is a 62 year old male who presents here today for Above Complaints. Patient states that over the last couple of weeks he has had episodes of feeling off balance without vertigo or lightheadedness. Symptoms come out of nowhere and last less than 60 seconds. Associated with some left ear popping, dull headache and sinus congestion. No specific triggers for these symptoms. Not taking anything OTC for sinus symptoms or headache. Denies slurred speech, facial droop, vision changes, hearing loss, tinnitus, numbness/tingling/weakness, chest pain, palpitations. Had this in the past when he gets water in his ears. Past medical history, appointments, medications, allergies reviewed. Previous Medical History PAST MEDICAL HISTORY Diagnosis Date ASHD (arteriosclerotic heart disease) 04/26/2014 BCC (basal cell carcinoma of skin) Controlled type 2 diabetes mellitus without complication, without long-term current use of insulin ([facility]) 07/15/2017 Esophageal reflux Essential hypertension, benign age 18 GERD (gastroesophageal reflux disease) 05/21/2010 Gout 01/08/2012 Hyperlipidemia LDL goal <100 12/05/2015 HYPERLIPIDEMIA NEC/NOS 10/30/2005 Hypokalemia 01/20/2018 Lipoma 01/08/2012 Lumbago DDD Mild intermittent asthma with acute exacerbation 04/12/2019 NSTEMI (non-ST elevated myocardial infarction) ([facility]) 04/26/2014 PARALYSIS OF the DIAPHRAGM 10/15/2006 resolved by 2013 Presence of bare metal stent in right coronary artery 04/26/2014 Prostate nodule 08/11/2013 Previous Surgical History PAST SURGICAL HISTORY Procedure Laterality Date BRONCHOSCOPY COLONOSCOPY FLX DX W/COLLJ SPEC WHEN PFRMD 08/03/2013 Colonoscopy ESOPHAGOGASTRODUODENOSCOPY TRANSORAL DIAGNOSTIC 08/03/2013 EGD HEART CATHETERIZATION 04/19/14 stent placement MAL LESION FACE,EAR,EYEL 1.1-2CM 06/23/13 Exc. BCC right taoism/cheek PROSTATE NEEDLE BIOPSY ANY APPROACH 01/27/2017 Transrectal bx, prostate - fusion Dr Alvarado Family History FAMILY HISTORY Problem Relation Age of Onset Diabetes Mother Hypertension Mother Macular Degen Mother None Father Patient Allergies ALLERGIES Allergen Reactions Lisinopril Cough Current Medications Current Outpatient Medications on File Prior to Visit Medication Sig amLODIPine (NORVASC) 10 mg tablet Take 1 tablet by mouth once daily. metFORMIN (GLUCOPHAGE) 500 mg tablet Take 2 tablets by mouth twice daily with meals. losartan (COZAAR) 50 mg tablet Take 2 tablets by mouth once daily. atorvastatin (LIPITOR) 80 mg tablet Take 1 tablet by mouth once daily. omeprazole (PRILOSEC) 40 mg capsule Take 1 capsule by mouth once daily. Atenolol-Chlorthalidone (TENORETIC 100) 100-25 mg per tablet Take 1 tablet by mouth once daily. allopurinol (ZYLOPRIM) 100 mg tablet Take 1 tablet by mouth once daily. For gout. potassium chloride ER (KLOR-CON M20) 20 mEq tablet Take 1 tablet by mouth once daily. blood sugar diagnostic (BLOOD GLUCOSE TEST) test strip Test blood sugar(s) 1-2 times daily. Dx: Type 2 DM - Controlled E11.9 Insulin: No What insurance will cover Lancets lancets Test blood sugar(s) 1-2 times daily. Dx: Type 2 DM - Controlled E11.9 Insulin: No aspirin, enteric coated (ADULT LOW DOSE ASPIRIN) 81 mg EC tablet Take 1 tablet by mouth once daily. Blood-Glucose Meter monitoring kit 1 Each as needed (1-2 times/day). Meter insurance will cover. Current Facility-Administered Medications on File Prior to Visit Medication perflutren lipid microspheres 1.3 mL in NaCl (PF) 0.9% 10 mL injection (DEFINITY) sodium chloride 0.9 % (flush) 10 mL (BD POSIFLUSH) Social History Social History Tobacco Use Smoking status: Former Packs/day: 3.00 Years: 7.00 Pack years: 21.00 Types: Cigarettes Quit date: 02/06/1987 Years since quittin.9 Smokeless tobacco: Never Vaping Use Vaping Use: Never used Substance Use Topics Alcohol use: Not Currently Comment: RARE Drug use: No Review of Symptoms REVIEW OF SYSTEMS See HPI EXAM: BP 136/82 Pulse (!) 56 Temp 36.2 ?C (97.2 ?F) Resp 16 Wt 94.4 kg (208 lb 3.2 oz) SpO2 99% BMI 32.49 kg/m? General Appearance: Well appearing, alert, in no acute distress, well-hydrated, well nourished.. Skin: Skin color, texture, turgor normal, no suspicious rashes or lesions. Ears: Positive findings: cerumen bilaterally, amount Moderate. Irrigated successfully. Right TM normal. Left TM with serous effusion without erythema or purulence. Lungs: Lungs clear to auscultation. No wheezing, rhonchi, rales.. Heart: RRR without murmur, gallop, or rubs. No ectopy. Neurologic: Negative findings: speech normal (more content not included)... [facility] 09-12-2022 Note HNO ID: [id number] Author: Johann Latif II, OD Service: ? Author Type: RETAIL CLIENT SOLUTIONS ANALYST Type: Progress Notes Filed: 09/12/2022 11:23 AM Note Text: Assessment and Plan E11.9 Type 2 diabetes mellitus without retinopathy (HCC) (primary encounter diagnosis) Comment: Examination shows no ocular diabetic complications today. Discussed need for optimal diabetes control to minimize chance of ocular complications. Advise patient to immediately report worsening in status or additional symptoms. Continue yearly dilated eye examinations. H25.813 Combined form of senile cataract of both eyes Comment: Slow progression both eyes. Well tolerated both eyes. Monitor for change. H52.4 Presbyopia H52.02 Hyperopia, left H52.222 Regular astigmatism, left eye Comment: Small shift in glasses power. Discussed possible adaptation issues to aniso glasses power. I have confirmed and edited as necessary the relevant ophthalmic history, ROS, and the neuro exam findings as obtained by others. I have seen and examined Freedom Crystal. I have discussed the case and the management of this patient's care with the Resident/Fellow, if applicable. I also have reviewed and agree with the assessment and plan as stated above and agree with all of its relevant components. Johann Latif II, OD [facility] 09-12-2022 Instructions Johann Latif II, OD - 09/12/2022 11:23 AM EST Assessment and Plan E11.9 Type 2 diabetes mellitus without retinopathy (HCC) (primary encounter diagnosis) Comment: Examination shows no ocular diabetic complications today. Discussed need for optimal diabetes control to minimize chance of ocular complications. Advise patient to immediately report worsening in status or additional symptoms. Continue yearly dilated eye examinations. H25.813 Combined form of senile cataract of both eyes Comment: Slow progression both eyes. Well tolerated both eyes. Monitor for change. H52.4 Presbyopia H52.02 Hyperopia, left H52.222 Regular astigmatism, left eye Comment: Small shift in glasses power. Discussed possible adaptation issues to aniso glasses power. I have confirmed and edited as necessary the relevant ophthalmic history, ROS, and the neuro exam findings as obtained by others. I have seen and examined Freedom Crystal. I have discussed the case and the management of this patient's care with the Resident/Fellow, if applicable. I also have reviewed and agree with the assessment and plan as stated above and agree with all of its relevant components. Johann Latif II, OD documented in this encounter [facility] 09-12-2022 History of Presen t illness Narrative Assessment and Plan E11.9 Type 2 diabetes mellitus without retinopathy (HCC) (primary encounter diagnosis) Comment: Examination shows no ocular diabetic complications today. Discussed need for optimal diabetes control to minimize chance of ocular complications. Advise patient to immediately report worsening in status or additional symptoms. Continue yearly dilated eye examinations. H25.813 Combined form of senile cataract of both eyes Comment: Slow progression both eyes. Well tolerated both eyes. Monitor for change. H52.4 Presbyopia H52.02 Hyperopia, left H52.222 Regular astigmatism, left eye Comment: Small shift in glasses power. Discussed possible adaptation issues to aniso glasses power. I have confirmed and edited as necessary the relevant ophthalmic history, ROS, and the neuro exam findings as obtained by others. I have seen and examined Freedom Crystal. I have discussed the case and the management of this patient's care with the Resident/Fellow, if applicable. I also have reviewed and agree with the assessment and plan as stated above and agree with all of its relevant components. Johann Latif II, OD documented in this encounter [facility] 08-27-2022 Instructions aKndy Narvaez APRN.[employer] - 08/27/2022 8:41 AM EST Continue the same medications. 2. Schedule with gen surg for colonoscopy. 3. Check with insurance re: Shingrix. 4. Recheck in 6 months. Health Promotion: - Eat healthy -- go to [employer]gov to get started - Have a yearly physical - Get at least 30 minutes of physical activity daily - Get at least 7 to 8 hours of sleep each night - Reach and maintain a healthy weight - Get help to quit or don't start smoking - Limit alcohol use to one drink or less - Do not use illegal drugs or misuse prescription drugs - Wear a helmet when riding a bike and wear protective gear for sports - Wear a seatbelt in cars and not text and drive - Wear sunscreen documented in this encounter [facility] 08-27-2022 History of Presen t illness Narrative This is a 61 year old male who presents today with: Patient presents with: Physical HISTORY OF PRESENT ILLNESS: Freedom Crystal is a 61 year old male. Patient presents with: Physical DM: Reports overall feeling well. Medication side effects: No. Home sugar checks: yes -- checks daily. Hypoglycemic spells: No. Watching diet: Yes. Unexpected weight loss: No. Polyuria, polydipsia: No. Vision Changes: No. Foot lesions or numbness or pain: No. HYPERLIPIDEMIA: Patient is taking medications: Yes. Patient is watching diet: Yes. Patient denies myalgias: Yes. Patient denies gi upset: Yes HTN: Patient is compliant with meds Yes Monitors bp at home: Yes. Denies side effects: Yes. Chest pain: No. Dyspnea: No. Edema: No. Palpitations: No. Syncope: No. Headache: No. Dizziness: No. CAD: Follows with cardiology. Asymptomatic. REVIEW OF SYSTEMS GENERAL: No weight loss, malaise or fevers/chills HEENT: Negative for frequent or significant headaches, No changes in hearing or vision. NECK: Negative for lumps, goiter, pain and significant neck swelling RESPIRATORY: Negative for cough, hemoptysis, wheezing, dyspnea or shortness of breath CARDIOVASCULAR: Negative for chest pain, leg swelling, orthopnea, or palpitations GI: No nausea, vomiting, or diarrhea/constipation. No hematochezia/melena. No heartburn or reflux symptoms. : No history of dysuria, frequency or incontinence MUSCULOSKELETAL: Negative for joint pain or swelling. SKIN: Negative for lesions, rash, and itching ENDOCRINE: Negative for cold or heat intolerance, polyuria, polydipsia and goiter NEURO: No history of headaches, syncope, paralysis, seizures or tremors PAST MEDICAL HISTORY: PAST MEDICAL HISTORY Diagnosis Date ASHD (arteriosclerotic heart disease) 04/26/2014 BCC (basal cell carcinoma of skin) Controlled type 2 diabetes mellitus without complication, without long-term current use of insulin (HCC) 07/15/2017 Esophageal reflux Essential hypertension, benign age 18 GERD (gastroesophageal reflux disease) 05/21/2010 Gout 01/08/2012 Hyperlipidemia LDL goal <100 12/05/2015 HYPERLIPIDEMIA NEC/NOS 10/30/2005 Hypokalemia 01/20/2018 Lipoma 01/08/2012 Lumbago DDD Mild intermittent asthma with acute exacerbation 04/12/2019 NSTEMI (non-ST elevated myocardial infarction) (HCC) 04/26/2014 PARALYSIS OF the DIAPHRAGM 10/15/2006 resolved by 2013 Presence of bare metal stent in right coronary artery 04/26/2014 Prostate nodule 08/11/2013 PAST SURGICAL HISTORY Procedure Laterality Date BRONCHOSCOPY COLONOSCOPY FLX DX W/COLLJ SPEC WHEN PFRMD 08/03/2013 Colonoscopy ESOPHAGOGASTRODUODENOSCOPY TRANSORAL DIAGNOSTIC 08/03/2013 EGD HEART CATHETERIZATION 04/19/14 stent placement MAL LESION FACE,EAR,EYEL 1.1-2CM 06/23/13 Exc. BCC right taoism/cheek PROSTATE NEEDLE BIOPSY ANY APPROACH 01/27/2017 Transrectal bx, prostate - fusion Dr Alvarado ALLERGIES Lisinopril MEDICATIONS Current Outpatient Medications Medication Sig amLODIPine (NORVASC) 10 mg tablet Take 1 tablet by mouth once daily. blood sugar diagnostic (BLOOD GLUCOSE TEST) test strip Test blood sugar(s) 1-2 times daily. Dx: Type 2 DM - Controlled E11.9 Insulin: No What insurance will cover Lancets lancets Test blood sugar(s) 1-2 times daily. Dx: Type 2 DM - Controlled E11.9 Insulin: No allopurinol (ZYLOPRIM) 100 mg tablet Take 1 tablet by mouth once daily. For gout. Atenolol-Chlorthalidone (TENORETIC 100) 100-25 mg per tablet Take 1 tablet by mouth once daily. omeprazole (PRILOSEC) 40 mg capsule Take 1 capsule by mouth once daily. metFORMIN (GLUCOPHAGE) 500 mg tablet Take 2 tablets by mouth three times daily. losartan (COZAAR) 50 mg tablet Take 2 tablets by mouth once daily. atorvastatin (LIPITOR) 80 mg tablet Take 1 tablet by mouth once daily. aspirin, enteric coated (ADULT LOW DOSE ASPIRIN) 81 mg EC tablet Take 1 tablet by mouth once daily. Blood-Glucose Meter monitoring kit 1 Each as needed (1-2 times/day). Meter insurance will cover. Current Facility-Administered Medications Medication Dose Route Frequency perflutren lipid microspheres 1.3 mL in NaCl (PF) 0.9% 10 mL injection (DEFINITY) INTRAVENOUS DIRECTED PRN sodium chloride 0.9 % (flush) 10 mL (BD POSIFLUSH) 10 mL INTRAVENOUS DIRECTED PRN FAMILY HISTORY Problem Relation Age of Onset Diabetes Mother Hypertension Mother Macular Degen Mother None Father Social History Tobacco Use Smoking status: Former Packs/day: 3.00 Years: 7.00 Pack years: 21.00 Types: Cigarettes Quit date: 02/06/1987 Years since quittin.5 Smokeless tobacco: Never Vaping Use Vaping Use: Never used Substance Use Topics Alcohol use: Not Currently Comment: RARE Drug use: No EXAM: BP 130/82 Pulse 68 Resp 18 Ht 170.5 cm (5' 7.13 ) Wt 93 kg (205 lb) SpO2 96% BMI 31.99 kg/m PHYSICAL EXAM: General Appearance: Well appearing, alert, in no acute distress, well-hydrated, well nourished.. Skin: Skin color, texture, turgor normal, no suspicious rashes or lesions. Head: Normocephalic, no masses, lesions, tenderness or abnormalities. Eyes: Anicteric sclera. Pupils are equally round and reactive to light. Extraocular movements are intact. . Ears: External ears normal, canals clear. Oropharynx: Lips, mucosa, and tongue normal, teeth and gums normal, oropharynx normal. Neck: Supple, no adenopathy; thyroid symmetric, normal size, no bruits. Lungs: Lungs clear to auscultation. No wheezing, rhonchi, rales.. Heart: RRR without murmur, gallop, or rubs. No ectopy. Abdomen: Abdomen soft, non-tender. Bowel sounds normal. No masses, organomegaly. Extremities: No deformities, edema, skin discoloration, clubbing or cyanosis. Good capillary refill. . Neurologic: Gait normal. Reflexes normal and symmetric. Sensation grossly intact. Feet:Shoes and socks removed, No deformities, ulcers, calluses, normal distal pulses, and sensitive to 10 gm monofilament ASSESSMENT/PLAN: 1. Wellness examination - ICD9: V70.0, ICD10: Z00.00 (primary diagnosis) - Counseled on healthy diet and regular exercise - Patient was counseled [id number] by myself (the billing provider) for the following immunizations and vaccine components, including side effects: TdaP. Patient consents for immunization and understands risks and benefits. A VIS sheet on each immunization was given to the patient. Encouraged to check with insurance regarding Shingrix. Health Promotion: - Eat healthy -- go to [employer].gov to get started - Have a yearly physical - Get at least 30 minutes of physical activity daily - Get at least 7 to 8 hours of sleep each night - Reach and maintain a healthy weight - Get help to quit or don't start smoking - Limit alcohol use to one drink or less - Do not use illegal drugs or misuse prescription drugs - Wear a helmet when riding a bike and wear protective gear for sports - Wear a seatbelt in cars and not text and drive - Wear sunscreen 2. Controlled type 2 diabetes mellitus without complication, without long-term current use of insulin (HCC) - ICD9: 250.00, ICD10: E11.9 Controlled. - Continue current medications - METFORMIN 500 MG TABLET 3. Hyperlipidemia LDL goal <100 - ICD9: 272.4, ICD10: E78.5 - good control - Continue current medication. - ATORVASTATIN 80 MG TABLET 4. Gastroesophageal reflux disease without esophagitis - ICD9: 530.81, ICD10: K21.9 - Continue treatment - OMEPRAZOLE 40 MG CAPSULE,DELAYED RELEASE 5. Essential hypertension, benign - ICD9: 401.1, ICD10: I10 - good control - Continue current medication(s) - Recommended regular aerobic exercise. - Recommend home blood pressure monitoring, to bring results in on next visit - Goal of BP <130/80 - LOSARTAN 50 MG TABLET - ATENOLOL 100 MG-CHLORTHALIDONE 25 MG TABLET 6. Chronic gout without tophus, unspecified cause, unspecified site - ICD9: 274.02, ICD10: M1A.9XX0 stable - ALLOPURINOL 100 MG TABLET 7. Hypokalemia - ICD9: 276.8, ICD10: E87.6 continue - POTASSIUM CHLORIDE ER 20 MEQ TABLET,EXTENDED RELEASE(PART/CRYST) 8. Screening for colon cancer - ICD9: V76.51, ICD10: Z12.11 - CONSULT TO GENERAL SURGERY 9. Encounter for immunization - ICD9: V03.89, ICD10: Z23 - TDAP VACCINE AGE 7+ IM 10. Prostate cancer (HCC) - ICD9: 185, ICD10: C61 Stable. Discussed treatment plan and patient voices understanding. Patient's questions answered appropriately. Medications and potential side effects were discussed and patient voices understanding. Return to the office as scheduled or as needed for worsening/no improvement. Recheck in 6 months. Kandy Narvaez APRN.ANTOINE documented in this encounter [facility] 06-10-2022 History of Presen t illness Narrative Images from the original note were not included. Santana Long MD Interventional Cardiology [facility] [address], [place] [address] [phone] Chief Complaint Patient presents with: Follow Up HISTORY OF PRESENT ILLNESS: Mr. Crystal is a 61 year old male in my office today for assessment management of his cardiac condition patient had prior history of acute coronary syndrome with bilateral stent to the right coronary artery Remained asymptomatic denies chest pain or shortness of breath Stress test a year ago shows no evidence of ischemia with normal left ventricular function Patient is on appropriate medical therapy Cardiac Risk Factors age (male over 45, female over 55), hyperlipidemia, obesity, diabetes, hypertension, family history of CAD PAST MEDICAL HISTORY Diagnosis Date ASHD (arteriosclerotic heart disease) 04/26/2014 BCC (basal cell carcinoma of skin) Controlled type 2 diabetes mellitus without complication, without long-term current use of insulin (HCC) 07/15/2017 Esophageal reflux Essential hypertension, benign age 18 GERD (gastroesophageal reflux disease) 05/21/2010 Gout 01/08/2012 Hyperlipidemia LDL goal <100 12/05/2015 HYPERLIPIDEMIA NEC/NOS 10/30/2005 Hypokalemia 01/20/2018 Lipoma 01/08/2012 Lumbago DDD Mild intermittent asthma with acute exacerbation 04/12/2019 NSTEMI (non-ST elevated myocardial infarction) (HCC) 04/26/2014 PARALYSIS OF the DIAPHRAGM 10/15/2006 resolved by 2013 Presence of bare metal stent in right coronary artery 04/26/2014 Prostate nodule 08/11/2013 PAST SURGICAL HISTORY Procedure Laterality Date BRONCHOSCOPY COLONOSCOPY FLX DX W/COLLJ SPEC WHEN PFRMD 08/03/2013 Colonoscopy ESOPHAGOGASTRODUODENOSCOPY TRANSORAL DIAGNOSTIC 08/03/2013 EGD HEART CATHETERIZATION 04/19/14 stent placement MAL LESION FACE,EAR,EYEL 1.1-2CM 06/23/13 Exc. BCC right taoism/cheek PROSTATE NEEDLE BIOPSY ANY APPROACH 01/27/2017 Transrectal bx, prostate - fusion Dr Alvarado FAMILY HISTORY Problem Relation Age of Onset Diabetes Mother Hypertension Mother Macular Degen Mother None Father Social History Tobacco Use Smoking status: Former Packs/day: 3.00 Years: 7.00 Pack years: 21.00 Types: Cigarettes Quit date: 02/06/1987 Years since quittin.3 Smokeless tobacco: Never Vaping Use Vaping Use: Never used Substance Use Topics Alcohol use: Not Currently Comment: RARE Drug use: No ALLERGIES Allergen Reactions Lisinopril Cough Medications: Current Outpatient Medications Medication Sig Dispense Refill allopurinol (ZYLOPRIM) 100 mg tablet Take 1 tablet by mouth once daily. For gout. 90 tablet 0 amLODIPine (NORVASC) 10 mg tablet Take 1 tablet by mouth once daily. 90 tablet 0 Atenolol-Chlorthalidone (TENORETIC 100) 100-25 mg per tablet Take 1 tablet by mouth once daily. 90 tablet 0 omeprazole (PRILOSEC) 40 mg capsule Take 1 capsule by mouth once daily. 90 capsule 0 metFORMIN (GLUCOPHAGE) 500 mg tablet Take 2 tablets by mouth three times daily. 180 tablet 5 losartan (COZAAR) 50 mg tablet Take 2 tablets by mouth once daily. 180 tablet 3 atorvastatin (LIPITOR) 80 mg tablet Take 1 tablet by mouth once daily. 90 tablet 3 blood sugar diagnostic (BLOOD GLUCOSE TEST) test strip Test blood sugar(s) 1-2 times daily. Dx: Type 2 DM - Controlled E11.9 Insulin: No What insurance will cover 50 Strip 5 aspirin, enteric coated (ADULT LOW DOSE ASPIRIN) 81 mg EC tablet Take 1 tablet by mouth once daily. 0 Blood-Glucose Meter monitoring kit 1 Each as needed (1-2 times/day). Meter insurance will cover. 1 Each 0 Current Facility-Administered Medications Medication Dose Route Frequency Provider Last Rate Last Admin perflutren lipid microspheres 1.3 mL in NaCl (PF) 0.9% 10 mL injection (DEFINITY) INTRAVENOUS DIRECTED SAPNA Long MD sodium chloride 0.9 % (flush) 10 mL (BD POSIFLUSH) 10 mL INTRAVENOUS DIRECTED PRWilber Long MD Review of Systems Constitutional: Negative for chills, diaphoresis, fever, malaise/fatigue and weight loss. HENT: Negative for congestion, ear discharge, ear pain, hearing loss, nosebleeds, sinus pain, sore throat and tinnitus. Eyes: Negative for blurred vision, double vision, photophobia, pain, discharge and redness. Respiratory: Negative for cough, hemoptysis, sputum production, shortness of breath, wheezing and stridor. Cardiovascular: Negative for chest pain, palpitations, orthopnea, claudication, leg swelling and PND. Gastrointestinal: Negative for abdominal pain, blood in stool, constipation, diarrhea, heartburn, melena, nausea and vomiting. Genitourinary: Negative for dysuria, flank pain, frequency, hematuria and urgency. Musculoskeletal: Negative for back pain, falls, joint pain, myalgias and neck pain. Skin: Negative for itching and rash. Neurological: Negative for dizziness, tingling, tremors, sensory change, speech change, focal weakness, seizures, loss of consciousness, weakness and headaches. Endo/Heme/Allergies: Negative for environmental allergies and polydipsia. Does not bruise/bleed easily. Psychiatric/Behavioral: Negative for depression, hallucinations, memory loss, substance abuse and suicidal ideas. The patient is not nervous/anxious and does not have insomnia. Physical Examination: Vitals:BP 160/94 Pulse 62 Ht 5' 7 (1.70m) Wt 216 lb (98.0kg) BMI 33.82 kg/(m^2). BP w/Orthostatic Vitals Date and Time Orthostatic BP Orthostatic Pulse BP Pulse BP Position BP Site BP Cuff Size 06/10/22 0837 -- -- 160/94 62 -- -- -- Last 2 Encounter Wt Readings: Date: Wt: 06/10/2022 216 lb (98 kg) 10/29/2021 216 lb (98 kg) Physical Exam Constitutional: General: He is not in acute distress. Appearance: He is not diaphoretic. HENT: Head: Normocephalic and atraumatic. Right Ear: External ear normal. Left Ear: External ear normal. Nose: Nose normal. Mouth/Throat: Pharynx: Oropharynx is clear. Eyes: General: Right eye: No discharge. Left eye: No discharge. Conjunctiva/sclera: Conjunctivae normal. Pupils: Pupils are equal, round, and reactive to light. Cardiovascular: Rate and Rhythm: Normal rate and regular rhythm. Heart sounds: Normal heart sounds, S1 normal and S2 normal. No murmur heard. No friction rub. No gallop. No S3 or S4 sounds. Pulmonary: Effort: Pulmonary effort is normal. No respiratory distress. Breath sounds: Normal breath sounds. No wheezing or rales. Chest: Chest wall: No tenderness. Musculoskeletal: General: Normal range of motion. Cervical back: Normal range of motion and neck supple. Skin: General: Skin is warm and dry. Neurological: Mental Status: He is alert and oriented to person, place, and time. Psychiatric: Mood and Affect: Mood normal. Thought Content: Thought content normal. Judgment: Judgment normal. Pertinent Labs: CBC: Hemoglobin (g/dL) Date Value 07/13/2021 15.7 Hematocrit (%) Date Value 07/13/2021 47.9 WBC (k/uL) Date Value 07/13/2021 9.52 Platelet Count (k/uL) Date Value 07/13/2021 282 BMP: Glucose (mg/dL) Date Value 07/13/2021 152 Potassium (mmol/L) Date Value 07/13/2021 3.7 Sodium (mmol/L) Date Value 07/13/2021 137 Chloride (mmol/L) Date Value 07/13/2021 97 CO2 (mmol/L) Date Value 07/13/2021 26 Creatinine (mg/dL) Date Value 07/13/2021 0.87 BUN (mg/dL) Date Value 07/13/2021 18 Anion Gap (mmol/L) Date Value 07/13/2021 14 Calcium (mg/dL) Date Value 07/13/2021 9.7 INR: Lipid Profile: Cholesterol, Total Date Value Ref Range Status 07/13/2021 141 <200 mg/dL Final Comment: <200 mg/dL, Desirable 200-239 mg/dL, Borderline high >239 mg/dL, High HDL Cholesterol Date Value Ref Range Status 07/13/2021 39 (L) >39 mg/dL Final Comment: 40-59 mg/dL, Acceptable >59 mg/dL, High: Negative risk factor for coronary heart disease <40 mg/dL, Low: Positive risk factor for coronary heart disease LDL Cholesterol Date Value Ref Range Status 07/13/2021 70 <100 mg/dL Final Comment: <100 mg/dL, Optimal 100-129 mg/dL, Near optimal/above optimal 130-159 mg/dL, Borderline high 160-189 mg/dL, High >189 mg/dL, Very high Secondary prevention optimal LDL Cholesterol levels are recommended to be < 70 mg/dL Triglyceride Date Value Ref Range Status 07/13/2021 161 (H) <150 mg/dL Final Comment: <150 mg/dL, Normal 150-199 mg/dL, Borderline high 200-499 mg/dL, High >499 mg/dL, Very high Hemoglobin A1C: No results found for: HGBA1C TSH: No results found for: TSHREFL Prior Cardiac Testing Stress test 2020 Assessment and Plan: 61 years old prior history of coronary artery disease angioplasty coronary artery doing well from a cardiac point of view Coronary artery disease Patient had prior history of bare-metal stents to the right coronary artery stable cardiac condition stress test performed a year ago shows no evidence of ischemia with normal left ventricular function And optimal medical therapy 2. Poorly controlled hypertension Patient blood pressure is elevated in the office he is on for blood pressure medication I asked the patient to keep a log for his blood pressure for the next 2 weeks goal blood pressure is 130/90 3. Lifestyle changes Encourage patient to increase his physical activity daily exercise Cardiology plan Blood pressure log Follow-up in 1 year Follow up planning: One year Electronically signed by Santana Long MD on June 10, 2022, 9:12 AM The above note was partially created using a dictation recognition software. A reasonable attempt has been made to correct any errors. documented in this encounter [facility] 05-14-2022 Miscellaneous Notes Last office visit: 09/20/21 F/u scheduled: none Luz Mckenzie Ma documented in this encounter [facility] 05-14-2022 Miscellaneous Notes Last office visit: 09/20/21 F/u scheduled: none Luz Mckenzie Ma documented in this encounter [facility] 03-15-2022 Miscellaneous Notes Last office visit: 09/20/21 F/u scheduled: none Luz Mckenzie Ma documented in this encounter [facility] 02-27-2022 Miscellaneous Notes Patient has been identified by name and date of : Yes Patient phones for refill(s): Pending Prescriptions Disp Refills METFORMIN 500 MG TABLET Sig: Take 2 tablets by mouth three times daily. LAKE: No Date of last office visit in primary care: 09/20/21 Please advise. Thank you. Deanna Conn LPN documented in this encounter [facility] 01-02-2022 Miscellaneous Notes Patient phones requesting refills as follows: Pending Prescriptions Disp Refills AMLODIPINE 10 MG TABLET 90 tablet 0 Sig: Take 1 tablet by mouth once daily. LAKE: No KHOI 09/20/21 NOV no upcoming appt Please review and advise. Abdulaziz Banuelos LPN documented in this encounter [facility] 01-02-2022 Miscellaneous Notes Patient phones requesting refills as follows: Pending Prescriptions Disp Refills ALLOPURINOL 100 MG TABLET 90 tablet 0 Sig: Take 1 tablet by mouth once daily. For gout. LAKE: No ATENOLOL 100 MG-CHLORTHALIDONE 25 MG TABLET 90 tablet 0 Sig: Take 1 tablet by mouth once daily. LAKE: No OMEPRAZOLE 40 MG CAPSULE,DELAYED RELEASE 90 capsule 0 Sig: Take 1 capsule by mouth once daily. LAKE: No KHOI 09/20/21 NOV no upcoming appt Please review and advise. Abdulaziz Banuelos LPN documented in this encounter [facility] 12-31-2021 Miscellaneous Notes Patient phones requesting refills as follows: Pending Prescriptions Disp Refills AMLODIPINE 10 MG TABLET 90 tablet 0 Sig: Take 1 tablet by mouth once daily. LAKE: No KHOI 09/20/21 NOV no upcoming appt Please review and advise. Abdulaziz Banuelos LPN documented in this encounter [facility] documented as of this encounter (statuses as of 12/31/2021) [facility] History of Past illness Narrative* Problem Noted Date Resolved Date Malignant basal cell neoplasm of skin 06/10/2013 12/01/2017 PARALYSIS OF the DIAPHRAGM 10/15/200601/07 Shortness of breath 09/17/2006 12/01/2017 Esophageal reflux 12/01/2017 documented as of this encounter (statuses as of 01/03/2022) [facility] History of Past illness Narrative* Problem Noted Date Resolved Date Malignant basal cell neoplasm of skin 06/10/2013 12/01/2017 PARALYSIS OF the DIAPHRAGM 10/15/200601/07 Shortness of breath 09/17/2006 12/01/2017 Esophageal reflux 12/01/2017 documented as of this encounter (statuses as of 01/03/2022) [facility] History of Past illness Narrative* Problem Noted Date Resolved Date Malignant basal cell neoplasm of skin 06/10/2013 12/01/2017 PARALYSIS OF the DIAPHRAGM 10/15/200601/07 Shortness of breath 09/17/2006 12/01/2017 Esophageal reflux 12/01/2017 documented as of this encounter (statuses as of 02/27/2022) [facility] History of Past illness Narrative* Problem Noted Date Resolved Date Malignant basal cell neoplasm of skin 06/10/2013 12/01/2017 PARALYSIS OF the DIAPHRAGM 10/15/200601/07 Shortness of breath 09/17/2006 12/01/2017 Esophageal reflux 12/01/2017 documented as of this encounter (statuses as of 03/15/2022) [facility] History of Past illness Narrative* Problem Noted Date Resolved Date Malignant basal cell neoplasm of skin 06/10/2013 12/01/2017 PARALYSIS OF the DIAPHRAGM 10/15/200601/07 Shortness of breath 09/17/2006 12/01/2017 Esophageal reflux 12/01/2017 documented as of this encounter (statuses as of 05/14/2022) [facility] History of Past illness Narrative* Problem Noted Date Resolved Date Malignant basal cell neoplasm of skin 06/10/2013 12/01/2017 PARALYSIS OF the DIAPHRAGM 10/15/200601/07 Shortness of breath 09/17/2006 12/01/2017 Esophageal reflux 12/01/2017 documented as of this encounter (statuses as of 05/14/2022) [facility] History of Past illness Narrative* Problem Noted Date Resolved Date Malignant basal cell neoplasm of skin 06/10/2013 12/01/2017 PARALYSIS OF the DIAPHRAGM 10/15/200601/07 Shortness of breath 09/17/2006 12/01/2017 Esophageal reflux 12/01/2017 documented as of this encounter (statuses as of 06/10/2022) [facility] History of Past illness Narrative* Problem Noted Date Resolved Date Malignant basal cell neoplasm of skin 06/10/2013 12/01/2017 PARALYSIS OF the DIAPHRAGM 10/15/200601/07 Shortness of breath 09/17/2006 12/01/2017 Esophageal reflux 12/01/2017 documented as of this encounter (statuses as of 07/25/2022) [facility] History of Past illness Narrative* Problem Noted Date Resolved Date Malignant basal cell neoplasm of skin 06/10/2013 12/01/2017 PARALYSIS OF the DIAPHRAGM 10/15/200601/07 Shortness of breath 09/17/2006 12/01/2017 Esophageal reflux 12/01/2017 documented as of this encounter (statuses as of 08/27/2022) [facility] History of Past illness Narrative* Problem Noted Date Resolved Date Malignant basal cell neoplasm of skin 06/10/2013 12/01/2017 PARALYSIS OF the DIAPHRAGM 10/15/200601/07 Shortness of breath 09/17/2006 12/01/2017 Esophageal reflux 12/01/2017 documented as of this encounter (statuses as of 09/13/2022) [facility] History of Past illness Narrative* Problem Noted Date Resolved Date Malignant basal cell neoplasm of skin 06/10/2013 12/01/2017 PARALYSIS OF the DIAPHRAGM 10/15/200601/07 Shortness of breath 09/17/2006 12/01/2017 Esophageal reflux 12/01/2017 documented as of this encounter (statuses as of 02/26/2023) [facility] History of Past illness Narrative* Problem Noted Date Diagnosed Date Resolved Date Malignant basal cell neoplasm of skin 06/10/2013 12/01/2017 PARALYSIS OF the DIAPHRAGM 10/15/2006 0 01/08/2012 Shortness of breath 09/17/2006 12/02/19 18 Esophageal reflux 12/01/2017 documented as of this encounter (statuses as of 07/29/2023) [facility] History of Past illness Narrative* Problem Noted Date Diagnosed Date Resolved Date Malignant basal cell neoplasm of skin 06/10/2013 12/01/2017 PARALYSIS OF the DIAPHRAGM 10/15/2006 0 01/08/2012 Shortness of breath 09/17/2006 12/02/19 18 Esophageal reflux 12/01/2017 documented as of this encounter (statuses as of 07/30/2023) [facility] History of Past illness Narrative* Problem Noted Date Diagnosed Date Resolved Date Malignant basal cell neoplasm of skin 06/10/2013 12/01/2017 PARALYSIS OF the DIAPHRAGM 10/15/2006 0 01/08/2012 Shortness of breath 09/17/2006 12/02/19 18 Esophageal reflux 12/01/2017 documented as of this encounter (statuses as of 08/15/2023) [facility] History of Past illness Narrative* Problem Noted Date Diagnosed Date Resolved Date Malignant basal cell neoplasm of skin 06/10/2013 12/01/2017 PARALYSIS OF the DIAPHRAGM 10/15/2006 0 01/08/2012 Shortness of breath 09/17/2006 12/02/19 18 Esophageal reflux 12/01/2017 documented as of this encounter (statuses as of 10/27/2023) [facility] History of Past illness Narrative* Problem Noted Date Diagnosed Date Resolved Date Malignant basal cell neoplasm of skin 06/10/2013 12/01/2017 PARALYSIS OF the DIAPHRAGM 10/15/2006 0 01/08/2012 Shortness of breath 09/17/2006 12/02/19 18 Esophageal reflux 12/01/2017 documented as of this encounter (statuses as of 10/27/2023) [facility] note* Diagnosis Chronic gout without tophus, unspecified cause, unspecified site Essential hypertension, benign Gastroesophageal reflux disease without esophagitis Esophageal reflux [facility] Diagnosis Controlled type 2 diabetes mellitus without complication, without long-term current use of insulin (HCC) documented in this encounter [facility] note* Diagnosis Hypokalemia Hypopotassemia documented in this encounter [facility] note* Diagnosis Chronic gout without tophus, unspecified cause, unspecified site Essential hypertension, benign Gastroesophageal reflux disease without esophagitis Esophageal reflux documented in this encounter [facility] note* Diagnosis Chronic gout without tophus, unspecified cause, unspecified site [facility] Diagnosis Essential hypertension, benign- Primary ASHD (arteriosclerotic heart disease) Coronary atherosclerosis of unspecified type of vessel, pilot point or graft Presence of bare metal stent in right coronary artery Postsurgical percutaneous transluminal coronary angioplasty status Hyperlipidemia LDL goal <100 Other and unspecified hyperlipidemia Hypokalemia Hypopotassemia documented in this encounter [facility] note* Diagnosis Controlled type 2 diabetes mellitus without complication, without long-term current use of insulin (HCC) documented in this encounter [facility] note* Diagnosis Wellness examination- Primary Controlled type 2 diabetes mellitus without complication, without long-term current use of insulin (HCC) Hyperlipidemia LDL goal <100 Other and unspecified hyperlipidemia Gastroesophageal reflux disease without esophagitis Esophageal reflux Essential hypertension, benign Chronic gout without tophus, unspecified cause, unspecified site Hypokalemia Hypopotassemia Screening for colon cancer Special screening for malignant neoplasms, colon Encounter for immunization Need for other specified prophylactic vaccination against single bacterial disease Prostate cancer (HCC) Malignant neoplasm of prostate documented in this encounter [facility] note* Diagnosis Type 2 diabetes mellitus without retinopathy (HCC)- Primary Type II or unspecified type diabetes mellitus without mention of complication, not stated as uncontrolled Combined form of senile cataract of both eyes Presbyopia Hyperopia, left Regular astigmatism, left eye [facility]* Diagnosis Controlled type 2 diabetes mellitus without complication, without long-term current use of insulin (HCC)- Primary Hyperlipidemia LDL goal <100 Other and unspecified hyperlipidemia Essential hypertension, benign Chronic gout without tophus, unspecified cause, unspecified site Screening for colon cancer Special screening for malignant neoplasms, colon Gastroesophageal reflux disease without esophagitis Esophageal reflux ASHD (arteriosclerotic heart disease) Coronary atherosclerosis of unspecified type of vessel, pilot point or graft Mild intermittent asthma with acute exacerbation Unspecified asthma, with exacerbation Lipoma of torso [facility]* Diagnosis Essential hypertension, benign documented in this encounter [facility] note* Diagnosis Controlled type 2 diabetes mellitus without complication, without long-term current use of insulin (HCC)- Primary documented in this encounter [facility] note* Diagnosis ASHD (arteriosclerotic heart disease)- Primary Coronary atherosclerosis of unspecified type of vessel, pilot point or graft NSTEMI (non-ST elevated myocardial infarction) (HCC) Acute myocardial infarction, subendocardial infarction, episode of care unspecified Presence of bare metal stent in right coronary artery Postsurgical percutaneous transluminal coronary angioplasty status Essential hypertension, benign Hyperlipidemia LDL goal <100 Other and unspecified hyperlipidemia Controlled type 2 diabetes mellitus without complication, without long-term current use of insulin (HCC) Mild intermittent asthma with acute exacerbation Unspecified asthma, with exacerbation Gastroesophageal reflux disease without esophagitis Esophageal reflux Prostate cancer (HCC) Malignant neoplasm of prostate Obesity, Class I, BMI 30-34.9 Obesity, unspecified Chronic gout without tophus, unspecified cause, unspecified site Hypokalemia Hypopotassemia documented in this encounter [facility] note* Diagnosis Essential hypertension, benign documented in this encounter [facility] Summary Purpose Family History No Family History Records FoundNo Family History Records FoundNo Family History Records FoundNo Family History Records Found Advance Directives Documents on File Type Date Recorded 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 Advance Directive(s) 12/08/2017 6:44 AM Documents on File Type Date Recorded 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 Advance Directive(s) 12/08/2017 6:44 AM Reason for Referral Specialty Diagnoses / Procedures Referred By Ghislaine sanchez Referred To Contact General Surgery Diagnoses Screening for colon cancer Procedures CONSULT TO GENERAL SURGERY OFFICE/OUTPATIENT [facility] MDM 60-74 MINUTES Kandy Narvaez, [employer] [address] [place] [address] Referral ID Status Reason Start Date Expiration Date Visits Requested Visits Authorized [id number] Authorized PCP Requested Referral 2 08/27/2023 1 1 Referral ID Status Reason Start Date Expiration Date Visits Requested Visits Authorized [id number] Authorized PCP Requested Referral 02/25/2023 02/25/2024 1 1 Medications Administered Section Inactive Administered Medications - up to 3 most recent administrations Medication Order MAR Action Action Date Dose Rate Site PHENYLephrine 2.5 % 1 Drop (AK-DILATE, KATARZYNA-SYNEPHRINE) 1 Drop, BOTH EYES, DIRECTED, Starting on Jenn 09/12/22 at 1130, Until Jenn 09/12/22 at 2329, Administer for dilation PROTECT FROM LIGHT Given 09/12/2022 11:30 AM EST 1 Drop tropicamide 1 % 1 Drop (MYDRIACYL) 1 Drop, BOTH EYES, DIRECTED, Starting on Jenn 09/12/22 at 1130, Until Jenn 09/12/22 at 2329, Administer for dilation Given 09/12/2022 11:30 AM EST 1 Drop Additional Source Comments (unrecognized sect ion and content) No Status Records FoundNo Status Records FoundNo Status Records FoundNo Status Records Found INFORMATION SOURCE (unrecogn ized section and content) DATE CREATED AUTHOR AUTHOR'S ORGANIZ ATION 03/12/2018 [facility] DATE CREATED AUTHOR AUTHOR'S ORGANIZ ATION 03/12/2018 [facility] DATE CREATED AUTHOR AUTHOR'S ORGANIZ ATION 09/05/2023 [facility] Source Comments (unrecognize d section and content) In the event this informatio n is protected by the Federal Confidentiality of Alcohol and Drug Abuse Patient Records regulations: The Federal rules restrict any use of the information to criminally investigate or prosecute any alcohol or drug abuse patient.[facility] event this information is protected by the Federal Confidentiality of Alcohol and Drug Abuse Patient Records regulations: The Federal rules restrict any use of the information to criminally investigate or prosecute any alcohol or drug abuse patient.[facility] the event this information is protected by the Federal Confidentiality of Alcohol and Drug Abuse Patient Records regulations: The Federal rules restrict any use of the information to criminally investigate or prosecute any alcohol or drug abuse patient.[facility] the event this information is protected by the Federal Confidentiality of Alcohol and Drug Abuse Patient Records regulations: The Federal rules restrict any use of the information to criminally investigate or prosecute any alcohol or drug abuse patient.[facility] event this information is protected by the Federal Confidentiality of Alcohol and Drug Abuse Patient Records regulations: The Federal rules restrict any use of the information to criminally investigate or prosecute any alcohol or drug abuse patient.[facility] event this information is protected by the Federal Confidentiality of Alcohol and Drug Abuse Patient Records regulations: The Federal rules restrict any use of the information to criminally investigate or prosecute any alcohol or drug abuse patient.[facility] event this information is protected by the Federal Confidentiality of Alcohol and Drug Abuse Patient Records regulations: The Federal rules restrict any use of the information to criminally investigate or prosecute any alcohol or drug abuse patient.[facility] the event this information is protected by the Federal Confidentiality of Alcohol and Drug Abuse Patient Records regulations: The Federal rules restrict any use of the information to criminally investigate or prosecute any alcohol or drug abuse patient.[facility] the event this information is protected by the Federal Confidentiality of Alcohol and Drug Abuse Patient Records regulations: The Federal rules restrict any use of the information to criminally investigate or prosecute any alcohol or drug abuse patient.[facility] the event this information is protected by the Federal Confidentiality of Alcohol and Drug Abuse Patient Records regulations: The Federal rules restrict any use of the information to criminally investigate or prosecute any alcohol or drug abuse patient.[facility] the event this information is protected by the Federal Confidentiality of Alcohol and Drug Abuse Patient Records regulations: The Federal rules restrict any use of the information to criminally investigate or prosecute any alcohol or drug abuse patient.[facility] the event this information is protected by the Federal Confidentiality of Alcohol and Drug Abuse Patient Records regulations: The Federal rules restrict any use of the information to criminally investigate or prosecute any alcohol or drug abuse patient.[facility] the event this information is protected by the Federal Confidentiality of Alcohol and Drug Abuse Patient Records regulations: The Federal rules restrict any use of the information to criminally investigate or prosecute any alcohol or drug abuse patient.[facility] the event this information is protected by the Federal Confidentiality of Alcohol and Drug Abuse Patient Records regulations: The Federal rules restrict any use of the information to criminally investigate or prosecute any alcohol or drug abuse patient.[facility] the event this information is protected by the Federal Confidentiality of Alcohol and Drug Abuse Patient Records regulations: The Federal rules restrict any use of the information to criminally investigate or prosecute any alcohol or drug abuse patient.[facility] the event this information is protected by the Federal Confidentiality of Alcohol and Drug Abuse Patient Records regulations: The Federal rules restrict any use of the information to criminally investigate or prosecute any alcohol or drug abuse patient.[facility] the event this information is protected by the Federal Confidentiality of Alcohol and Drug Abuse Patient Records regulations: The Federal rules restrict any use of the information to criminally investigate or prosecute any alcohol or drug abuse patient.[facility] Reason for Visit (unrecogniz ed section and content) Reason Onset Date Comments Refill Request 01/02/2022 Reason Onset Date Comments Refill Request 02/26/2022 Reason Comments Refill Request Reason Onset Date Comments Refill Request 05/12/2022 Reason Onset Date Comments Refill Request 05/11/2022 Reason Comments Follow Up Specialty Diagnoses / Procedures Referred By Ghislaine t Referred To Contact Cardiology / INITIAL DEPT Diagnoses ASHD (arteriosclerotic heart disease) Procedures CONSULT TO CARDIOLOGY NEW PATIENT VISIT LEVEL 5 OFFICE/OUTPATIENT NEW MODERATE MDM 45-59 MINUTES Odalis Aguilar MD [address] [place] [address] Initial Department Referral ID Status Reason Start Date Expiration Date V isits Requested Visits Authorized [id number] Closed PCP Requested Referral 09/08/2021 09/07/2022 1 1 Reason Comments Physical Reason Comments Diabetes Reason Comments Follow Up Reason Onset Date Comments Refill Request 07/27/2023 Reason Comments Results Reason Comments 6 Month Exam Reason Onset Date Comments Refill Request 10/25/2023 Care Teams (unrecognized sec tion and content) Certified Medical Aide Relationship Specialty Start Date End Date Odalis Aguilar MD [address] [place], [place] [id number] PCP - General Family Practice 06/25/21 Certified Medical Aide Relationship Specialty Start Date End Date Odalis Aguilar MD [address] [place], [place] [id number] PCP - General Family Practice 06/25/21 Certified Medical Aide Relationship Specialty Start Date End Date Odalis Aguilar MD [address] [place], [place] [id number] PCP - General Family Practice 06/25/21 Certified Medical Aide Relationship Specialty Start Date End Date Odalis Aguilar MD [facility] [place], [place] [id number] PCP - General Family Practice 06/25/21 Certified Medical Aide Relationship Specialty Start Date End Date Odalis Aguilar MD [address] [facility] [place] [address] PCP - General Family Medicine 06/25/21 Certified Medical Aide Relationship Specialty Start Date End Date Odalis Aguilar MD [address] [place] [address] PCP - General Family Medicine 06/25/21 Certified Medical Aide Relationship Specialty Start Date End Date Odalis Aguilar MD [address] [place] [address] PCP - General Family Medicine 06/25/21 Certified Medical Aide Relationship Specialty Start Date End Date Odalis Aguilar MD [address] [place] [address] PCP - General Family Medicine 06/25/21 Certified Medical Aide Relationship Specialty Start Date End Date Odalis Aguilar MD [address] [place] [address] PCP - General Family Medicine 06/25/21 Certified Medical Aide Relationship Specialty Start Date End Date Odalis Aguilar MD [address] [place] [address] PCP - General Family Medicine 06/25/21 Certified Medical Aide Relationship Specialty Start Date End Date Odalis Aguilar MD [address] [place] [address] PCP - General Family Medicine 06/25/21 Certified Medical Aide Relationship Specialty Start Date End Date Odalis Aguilar MD [address] [place] [address] PCP - General Family Medicine 06/25/21 Certified Medical Aide Relationship Specialty Start Date End Date Odalis Aguilar MD [address] [place] [address] PCP - General Family Medicine 06/25/21 FOR RECORDS PERTAINING TO PATIENTS WHO ARE OR HAVE BEEN ENROLLED IN A CHEMICAL DEPENDENCY/SUBSTANCEABUSE PROGRAM, SOME INFORMATION MAY BE OMITTED. This clinical summary was aggregated from multiple sources. Caution should be exercised in using it in the provision of clinical care. This summary normalizes information from multiple sources, and as a consequence, information in this document may materially change the coding, format and clinical context of patient data. In addition, data may be omitted in some cases. CLINICAL DECISIONS SHOULD BE BASED ON THE PRIMARY CLINICAL RECORDS. [facility]. provides no warranty or guarantee of the accuracy or completeness of information in this document.
[2023-11-17 20:19] LABS: Bedside Glucose 298 mg/dL (74-106)
--- OUTSIDE RECORDS SUMMARY | 2023-11-17 21:30 | XMS RPT_ITS | CCD ---
Author Name Unknown Address [address] [place] [address] Organization [facility] Care Team Providers Care Radiology Equipment Servicer Name Role Phone AVALLONE, DELISA N Unavailable Unavailable AVALLONE, DELISA N Unavailable Unavailable AVALLONE, DELISA N Unavailable Unavailable AVALLONE, EDLISA N Unavailable Unavailable CEBUL, ABEL Unavailable Unavailable [...] Unavailable ODALIS AGUILAR Primary Care Unavailable MARISA VANEGAS Attending Unavailab ODALIS Brian Primary Care Unavailable JOHANN LATIF II Attending Unavailabl ODALIS Howard Primary Care Unavailable Raissa GAINES Referring Unavailable Raissa GAINES Referring Unavailable ODALIS AGUILAR Primary Care Unavailable ODALIS AGUILAR Primary Care Unavailable Raissa GAINES Attending Unavailable Raissa GAINES Referring Unavailable ODALIS AGUILAR Primary Care Unavailable ODALIS AGUILRA Primary Care Unavailable Raissa GAINES Attending Unavailable ODALIS AGUILAR Primary Care Unavailable KANDY NARVAEZ Referring Unavailable ODALIS AGUILAR Primary Care Unavailable SANTANA LONG Attending Unavailable SANTANA LONG Referring Unavailable ODALIS AGUILAR Primary Care Unavailable FRANSISCO SANTANA STEVENSON Referring Unavailable Allergies Allergy Classification Reported Allergen(s) Allergy Type Date of Onset Reaction(s) Facility (20 sources) lisinopril; Translations: [LISINOPRIL] Drug Allergy 11-03-2007 [facility] Other [place] [facility] Medications Current Medications Medication Drug Class(es) [...] disease (20 sources) Atherosclerotic heart disease of resighini coronary artery without angina pectoris; Translations: [Coronary [...] 08-15-2023 08:00-0500 Body weight 95.71 kg NA [employer] Work Phone: [facility] 08-15-2023 08:00-0500 Diastolic blood pressure 82 mm[Hg] NA Gaines PA-Teralynk Work Phone: [facility] 08-15-2023 08:00-0500 Heart rate 60 /min NA Gaines [employer] Work Phone: [facility] 08-15-2023 08:00-0500 Respiratory rate 16 /min NA Gaines PA-C Work Phone: [facility] 08-15-2023 08:00-0500 SaO2% (BldA) [Mass fraction] 100 % NA Gaines PA-C Work Phone: [facility] 08-15-2023 08:00-0500 Systolic blood pressure 130 mm[Hg] NA Gaines PA-C Work Phone: [facility] 02-25-2023 08:32-0400 Body weight 94.8 kg Kandy Haagen ASSISTANT PUBLIC DEFENDER.CORRIDOR REDEVELOPMENT MANAGER Work Phone: [facility] 02-25-2023 08:32-0400 Diastolic blood pressure 82 mm[Hg] Kandy Haagen ASSISTANT PUBLIC DEFENDER.CORRIDOR REDEVELOPMENT MANAGER Work Phone: [facility] 02-25-2023 08:32-0400 Heart rate 61 /min Kandy Haagen ASSISTANT PUBLIC DEFENDER.CORRIDOR REDEVELOPMENT MANAGER Work Phone: [facility] 02-25-2023 08:32-0400 Respiratory rate 16 /min Kandy Haagen ASSISTANT PUBLIC DEFENDER.CORRIDOR REDEVELOPMENT MANAGER Work Phone: [facility] 02-25-2023 08:32-0400 SaO2% (BldA) [Mass fraction] 97 % Kandy Haagen ASSISTANT PUBLIC DEFENDER.CORRIDOR REDEVELOPMENT MANAGER Work Phone: [facility] 02-25-2023 08:32-0400 Systolic blood pressure 128 mm[Hg] Kandy Haagen ASSISTANT PUBLIC DEFENDER.CORRIDOR REDEVELOPMENT MANAGER Work Phone: [facility] 08-27-2022 08:07-0500 Body height 170.5 cm Kandy Haagen ASSISTANT PUBLIC DEFENDER.CORRIDOR REDEVELOPMENT MANAGER Work Phone: [facility] 08-27-2022 08:07-0500 Body weight 92.99 kg Kandy Haagen ASSISTANT PUBLIC DEFENDER.CORRIDOR REDEVELOPMENT MANAGER Work Phone: [facility] 08-27-2022 08:07-0500 Diastolic blood pressure 82 mm[Hg] Kandy Haagen ASSISTANT PUBLIC DEFENDER.CORRIDOR REDEVELOPMENT MANAGER Work Phone: [facility] 08-27-2022 08:07-0500 Heart rate 68 /min Kandy Haagen ASSISTANT PUBLIC DEFENDER.CORRIDOR REDEVELOPMENT MANAGER Work Phone: [facility] 08-27-2022 08:07-0500 Respiratory rate 18 /min Kandy Narvaez ASSISTANT PUBLIC DEFENDER.CORRIDOR REDEVELOPMENT MANAGER Work Phone: [facility] 08-27-2022 08:07-0500 SaO2% (BldA) [Mass fraction] 96 % Kandy Narvaez ASSISTANT PUBLIC DEFENDER.CORRIDOR REDEVELOPMENT MANAGER Work Phone: [facility] 08-27-2022 08:07-0500 Systolic blood pressure 130 mm[Hg] Kandy Narvaez ASSISTANT PUBLIC DEFENDER.CORRIDOR REDEVELOPMENT MANAGER Work Phone: [facility] 06-10-2022 08:37-0400 Body height 170.2 cm Santana Long MD Work Phone: [facility] 06-10-2022 08:37-0400 Body weight 97.98 kg Santana Long MD Work Phone: [facility] 06-10-2022 08:37-0400 Diastolic blood pressure 94 mm[Hg] Santana Long MD Work Phone: [facility] 06-10-2022 08:37-0400 Heart rate 62 /min Santana Long MD Work Phone: [facility] 06-10-2022 08:37-0400 Systolic blood pressure 160 mm[Hg] Santana Long MD Work Phone: [facility] Encounters Encounter Date Encounter Type Care Provider Facility Start: 10-25-2023 Kaylen Nix on PA-C Work Phone: [facility] Procedures Date Procedure Procedure Detail Performing Clinician Start: 09-20-2021 Adult depression scr eening assessment Odalis Aguilar MD Work Phone: Start: 08-03-2013 Colonoscopy Odalis Lopez MD Work Phone: Plan of Treatment Date Care Activity Detail Author Start: 08-27-2032 Urine microalbumin profile [facility] Start: 08-15-2028 Prostate specific an tigen measurement Prostate Cancer Screening Discussion [facility] Start: 12-15-2027 PROSTATE CANCER SCRE ENING DISCUSSION PROSTATE CANCER SCREENING DISCUSSION [facility] Start: 07-13-2026 PROSTATE CANCER SCRE ENING DISCUSSION PROSTATE CANCER SCREENING DISCUSSION [facility] Start: 08-28-2024 Annual PCP Team Teacher Education Director tierra Disease Visit Annual PCP Team Chronic Disease Visit [facility] Start: 08-15-2024 Annual PCP Team Teacher Education Director tierra Disease Visit Annual PCP Team Chronic Disease Visit [facility] Start: 08-15-2024 Hepatitis B screening Urine Al bumin:Creatinine Ratio [facility] Start: 08-15-2024 Shingrix Vaccine (1 of 2) Sanz grix Vaccine (1 of 2) [facility] Immunizations Immunization Date Immunization Notes Care Provider Fa cility 08-27-2022 tetanus toxoid, redu lizabeth diphtheria toxoid, and acellular pertussis vaccine, adsorbed Kandy Narvaez ASSISTANT PUBLIC DEFENDER.CORRIDOR REDEVELOPMENT MANAGER Work Phone: [facility] 07-17-2018 influenza virus vaccine, unspecified formulation Odalis Aguilar MD Work Phone: [facility] 10-31-2006 pneumococcal conjuga te vaccine, 7 valent Odalis Aguilar MD Work Phone: [facility] Work Phone: 07-05-1991 diphtheria and tetan us toxoids, adsorbed for pediatric use Odalis Aguilar MD Work Phone: [facility] Work Phone: Payers Date Payer Category Payer Private Health Insurance [id number] 2017 Private Health Insurance [employer] A Bridj [id number] 2017-Present [phone] [address] [place] [address] PPO [id number] 2017 Private Health Insurance [employer] A Bridj [id number] 2017-Present [phone] [address] [place] [address] PPO [id number] 2017 Unknown [facility] [id number] 09/08/2017-Present [id number] [place] [address] [facility] [id number] Social History Date Type Detail Facility Start: 05-31-2015 End: 06-10-2022 Tobacco smoking status NHIS Ex-smoker [facility] in[facility] End: 02-06-1987 History of tobacco use Current smoker [facility] End: 02-06-1987 History of tobacco use Cigarette Smoker [facility] Start: 10-29-2021 End: 08-28-2023 Alcohol intake Ex-drinker (finding) [facility] Start: 07-18-2021 End: 08-23-2022 History SDOH Alcohol Frequency 2 [facility] Start: 07-18-2021 End: 08-23-2022 History SDOH Alcohol Std Drinks 1 [facility] Start: 07-18-2021 End: 08-23-2022 History SDOH Social Connections Phone 5 [facility] Start: 07-18-2021 End: 08-23-2022 History SDOH Social Connections Get Together 3 [facility] Start: 07-18-2021 History SDOH Physica l Activity MPS 6 [facility] Start: 07-18-2021 History SDOH Financial 4 [facility] Start: 01-31-2020 Education 15 [facility] Start: 1960 Sex Assigned At Not on file [facility] Start: 05-31-2015 End: 01-23-2023 Cigarettes smoked current (pack per day) - Reported 3 [facility] Start: 05-31-2015 End: 06-10-2022 Tobacco use and exposure Smokeless tobacco non-user [facility] Start: 05-31-2022 End: 06-10-2022 Exposure to SARS-CoV-2 (event) Not sure [facility] Start: 08-23-2022 End: 01-23-2023 Social connection and isolation panel [facility] Do you belong to any clubs or organizations such as confucianist groups, unions, fraternal or athletic groups, or school groups? Yes [facility] Are you now , , , , never or living with a partner? [facility] How often to you hav e a drink containing alcohol? 2-4 times a month [facility] How many standard dr inks containing alcohol do you have on a typical day? 1 or 2 [facility] How often do you hav e 6 or more drinks on 1 occasion? Never [facility] How hard is it for y ou to pay for the very basics like food, housing, medical care, and heating Not hard at all [facility] Do you feel stress - tense, restless, nervous, or anxious, or unable to sleep at night because your mind is troubled all the time - these days [OSQ] Not at all [facility] (I/We) worried wheth er (my/our) food would run out before (I/we) got money to buy more. Never true [facility] In the past 12 month s, was there a time when you were not able to pay the mortgage or rent on time? No [facility] How often to you hav e a drink containing alcohol? Monthly or less [facility] Medical Equipment Procedure Code Equipment Code Equipment [...] in primary care:02/12/2024 Please advise. Thank you. Deanna Conn LPN. documented in this encounter [facility] 08-28-2023 Note HNO ID: [id number] Author: Rozina Pressley RT(R) Service: ? Author Type: Sharepoint Trainer Type: Progress Notes Filed: 08/28/2023 1:32 PM [...] RT Nahed(R) August 28, 2023 1:20 PM [facility] 08-28-2023 Note HNO ID: [id number] Author: Raissa Gaines PA-C Service: ? Author Type: Physician Residential Sales Executive Type: Progress Notes Filed: 08/28/2023 8:01 PM [...] LESION FACE,EAR,EYEL 1.1-2CM 06/23/13 Exc. BCC right jewish/cheek PROSTATE NEEDLE BIOPSY ANY APPROACH 01/27/2017 Transrectal [...] + very slight (more content not included)... [facility] 08-15-2023 Note HNO ID: [id number] Author: Raissa Gaines PA-C Service: ? Author Type: Physician Residential Sales Executive Type: Progress Notes Filed: 08/15/2023 9:56 AM Note Text: 62 year old male with c/o here for followup Ashd (arteriosclerotic heart disease) (primary encounter diagnosis) Nstemi (non-st elevated myocardial infarction) (hcc) Presence of bare metal stent in right coronary artery Essential hypertension, benign Hyperlipidemia ldl goal <100 Cardiovascular interval hx: 06/09/2023 last cardiology f/u Dr. Long:stable 11/12/2021 [place] card perf stress exercise CONCLUSIONS: 1. SPECT [...] FBP LVEF % 83 04/19/2014 admitted to [facility] with NSTEMI, 1 hour of chest discomfort associated with weakness and tiredness initially low molecular weight heparin, statin therapy, antiplatelets. Underwent coronary angiography w/ tight distal RCA stenosis, transferred to [facility] where he underwent RCA PTCA and stent 04/18/2014 admitted to [facility] with acute coronary syndrome and chest [...] Lymph 1.00 - 4.00 k/uL 1.95 1.89 Terry% % 9.0 8.5 Abs Terry <0.87 k/uL 0.69 0.73 Eosin% % 3.4 [...] complication, without long-term current use of insulin ([facility]) Current medications: Metformin 500 mg 1 tablets [...] 02/25/2023 Potassium 3.8 (more content not included)... [facility] 08-15-2023 History of Presen t illness Narrative 62 year old male with c/o here for followup Ashd (arteriosclerotic heart disease) (primary encounter diagnosis) Nstemi (non-st elevated myocardial infarction) ([facility]) Presence of bare metal stent in right coronary artery Essential hypertension, benign Hyperlipidemia ldl goal <100 Cardiovascular interval hx: 06/09/2023 last cardiology f/u Dr. Long:stable 11/12/2021 [place] card perf stress exercise CONCLUSIONS: 1. SPECT [...] FBP LVEF % 83 04/19/2014 admitted to [facility] with NSTEMI, 1 hour of chest discomfort associated with weakness and tiredness initially low molecular weight heparin, statin therapy, antiplatelets. Underwent coronary angiography w/ tight distal RCA stenosis, transferred to [facility] where he underwent RCA PTCA and stent 04/18/2014 admitted to [facility] with acute coronary syndrome and chest [...] Lymph 1.00 - 4.00 k/uL 1.95 1.89 Terry% % 9.0 8.5 Abs Terry <0.87 k/uL 0.69 0.73 Eosin% % 3.4 [...] (hcc) Robotic lap radical prostatectomy Dr. Alvarado Carley score 6, left apical FINAL DIAGNOSIS 1. [...] biopsy (L) - Adenocarcinoma of the prostate, [place] score 3+3=6 involving 90% of one of [...] developed and its performance characteristics determined by [facility] [place]. The U.S. Food and Drug Administration has [...] complication, without long-term current use of insulin ([facility]) 07/15/2017 Esophageal reflux Essential hypertension, benign age 18 GERD (gastroesophageal reflux disease) 05/21/2010 Gout 01/08/2012 Hyperlipidemia LDL goal <100 12/05/2015 HYPERLIPIDEMIA NEC/NOS 10/30/2005 Hypokalemia 01/20/2018 Lipoma 01/08/2012 Lumbago DDD Mild intermittent asthma with acute exacerbation 04/12/2019 NSTEMI (non-ST elevated myocardial infarction) ([facility]) 04/26/2014 PARALYSIS OF the DIAPHRAGM 10/15/2006 resolved by 2013 Presence of bare metal stent in right coronary artery 04/26/2014 Prostate nodule 08/11/2013 PAST SURGICAL HISTORY Procedure Laterality Date BRONCHOSCOPY COLONOSCOPY FLX DX W/COLLJ SPEC WHEN PFRMD 08/03/2013 Colonoscopy ESOPHAGOGASTRODUODENOSCOPY TRANSORAL DIAGNOSTIC 08/03/2013 EGD HEART CATHETERIZATION 04/19/14 stent placement MAL LESION FACE,EAR,EYEL 1.1-2CM 06/23/13 Exc. BCC right jewish/cheek PROSTATE NEEDLE BIOPSY ANY APPROACH 01/27/2017 Transrectal [...] Gout Lipoma Nstemi (Non-St Elevated Myocardial Infarction) ([facility]) Ashd (Arteriosclerotic Heart Disease) Presence of Bare Metal Stent in Right Coronary Artery Hyperlipidemia Ldl Goal <100 Prostate Cancer ([facility]) Controlled Type 2 Diabetes Mellitus Without Complication, Without Long-Term Current Use of Insulin ([facility]) Obesity, Class I, Bmi 30-34.9 Hypokalemia [...] Raissa Gaines PA-C documented in this encounter [facility] 07-30-2023 Miscellaneous Notes Pt called and is [...] Kandy Narvaez APRN.ANTOINE documented in this encounter [facility] 07-28-2023 Miscellaneous Notes Patient has been identified [...] Kandy Sparrow LPN documented in this encounter [facility] 06-09-2023 Note HNO ID: [id number] Author: Santana Long MD Service: ? Author Type: Physician Type: Progress Notes Filed: 06/09/2023 9:31 AM Note Text: Santana Long MD Interventional Cardiology [address] [place] [address] Chief Complaint Patient presents with: Established Patient [...] exacerbation 04/12/2019 NSTEMI (non-ST elevated myocardial infarction) ([facility]) 04/26/2014 PARALYSIS OF the DIAPHRAGM 10/15/2006 resolved by 2013 Presence of bare metal stent in right coronary artery 04/26/2014 Prostate nodule 08/11/2013 PAST SURGICAL HISTORY Procedure Laterality Date BRONCHOSCOPY COLONOSCOPY FLX DX W/COLLJ SPEC WHEN PFRMD 08/03/2013 Colonoscopy ESOPHAGOGASTRODUODENOSCOPY TRANSORAL DIAGNOSTIC 08/03/2013 EGD HEART CATHETERIZATION 04/19/14 stent placement MAL LESION FACE,EAR,EYEL 1.1-2CM 06/23/13 Exc. BCC right jewish/cheek PROSTATE NEEDLE BIOPSY ANY APPROACH 01/27/2017 Transrectal [...] and headaches. Endo/Heme/All (more content not included)... [facility] 02-25-2023 Note HNO ID: [id number] Author: Kandy Narvaez APRN.CORRIDOR REDEVELOPMENT MANAGER Service: ? Author Type: Nurse Practitioner Type: [...] exacerbation 04/12/2019 NSTEMI (non-ST elevated myocardial infarction) ([facility]) 04/26/2014 PARALYSIS OF the DIAPHRAGM 10/15/2006 resolved by 2013 Presence of bare metal stent in right coronary artery 04/26/2014 Prostate nodule 08/11/2013 PAST SURGICAL HISTORY Procedure Laterality Date BRONCHOSCOPY COLONOSCOPY FLX DX W/COLLJ SPEC WHEN PFRMD 08/03/2013 Colonoscopy ESOPHAGOGASTRODUODENOSCOPY TRANSORAL DIAGNOSTIC 08/03/2013 EGD HEART CATHETERIZATION 04/19/14 stent placement MAL LESION FACE,EAR,EYEL 1.1-2CM 06/23/13 Exc. BCC right jewish/cheek PROSTATE NEEDLE BIOPSY ANY APPROACH 01/27/2017 Transrectal [...] symmetric, normal s (more content not included)... [facility] 02-25-2023 Instructions Kandy Narvaez APRN.CNP - 02/25/2023 9:02 AM EDT Get labwork. Continue the same medications. We'll fax referral over to Dr. Geiger's office. If you haven't heard from them, please call them to schedule. documented in this encounter [facility] 02-25-2023 History of Presen t illness Narrative [...] complication, without long-term current use of insulin ([facility]) 07/15/2017 Esophageal reflux Essential hypertension, benign age 18 GERD (gastroesophageal reflux disease) 05/21/2010 Gout 01/08/2012 Hyperlipidemia LDL goal <100 12/05/2015 HYPERLIPIDEMIA NEC/NOS 10/30/2005 Hypokalemia 01/20/2018 Lipoma 01/08/2012 Lumbago DDD Mild intermittent asthma with acute exacerbation 04/12/2019 NSTEMI (non-ST elevated myocardial infarction) ([facility]) 04/26/2014 PARALYSIS OF the DIAPHRAGM 10/15/2006 resolved by 2013 Presence of bare metal stent in right coronary artery 04/26/2014 Prostate nodule 08/11/2013 PAST SURGICAL HISTORY Procedure Laterality Date BRONCHOSCOPY COLONOSCOPY FLX DX W/COLLJ SPEC WHEN PFRMD 08/03/2013 Colonoscopy ESOPHAGOGASTRODUODENOSCOPY TRANSORAL DIAGNOSTIC 08/03/2013 EGD HEART CATHETERIZATION 04/19/14 stent placement MAL LESION FACE,EAR,EYEL 1.1-2CM 06/23/13 Exc. BCC right jewish/cheek PROSTATE NEEDLE BIOPSY ANY APPROACH 01/27/2017 Transrectal [...] as needed for worsening/no improvement. Kandy Narvaez APRN.CORRIDOR REDEVELOPMENT MANAGER documented in this encounter [facility] 01-23-2023 Note HNO ID: [id number] Author: Michelle Gunderson LPN Service: ? Author [...] assessed by LIP pre and post procedure [facility] 01-23-2023 Note HNO ID: [id number] Author: Marisa Vanegas MD Service: ? Author [...] complication, without long-term current use of insulin ([facility]) 07/15/2017 Esophageal reflux Essential hypertension, benign age 18 GERD (gastroesophageal reflux disease) 05/21/2010 Gout 01/08/2012 Hyperlipidemia LDL goal <100 12/05/2015 HYPERLIPIDEMIA NEC/NOS 10/30/2005 Hypokalemia 01/20/2018 Lipoma 01/08/2012 Lumbago DDD Mild intermittent asthma with acute exacerbation 04/12/2019 NSTEMI (non-ST elevated myocardial infarction) ([facility]) 04/26/2014 PARALYSIS OF the DIAPHRAGM 10/15/2006 resolved by 2013 Presence of bare metal stent in right coronary artery 04/26/2014 Prostate nodule 08/11/2013 Previous Surgical History PAST SURGICAL HISTORY Procedure Laterality Date BRONCHOSCOPY COLONOSCOPY FLX DX W/COLLJ SPEC WHEN PFRMD 08/03/2013 Colonoscopy ESOPHAGOGASTRODUODENOSCOPY TRANSORAL DIAGNOSTIC 08/03/2013 EGD HEART CATHETERIZATION 04/19/14 stent placement MAL LESION FACE,EAR,EYEL 1.1-2CM 06/23/13 Exc. BCC right jewish/cheek PROSTATE NEEDLE BIOPSY ANY APPROACH 01/27/2017 Transrectal [...] findings: speech normal (more content not included)... [facility] 09-12-2022 Note HNO ID: [id number] Author: Johann Latif II, OD Service: ? Author Type: WRITER EDITOR Type: Progress Notes Filed: 09/12/2022 11:23 AM [...] its relevant components. Johann Latif II, OD [facility] 09-12-2022 Instructions Johann Latif II, OD - [...] Latif II, OD documented in this encounter [facility] 09-12-2022 History of Presen t illness Narrative [...] Latif II, OD documented in this encounter [facility] 08-27-2022 Instructions Kandy Narvaez APRN.CORRIDOR REDEVELOPMENT MANAGER - 08/27/2022 8:41 AM EST Continue the same medications. 2. Schedule with gen surg for colonoscopy. 3. Check with insurance re: Shingrix. 4. Recheck in 6 months. Health Promotion: - Eat healthy -- go to Choose[employer] IOPlate.gov to get started - Have a yearly [...] - Wear sunscreen documented in this encounter [facility] 08-27-2022 History of Presen t illness Narrative [...] LESION FACE,EAR,EYEL 1.1-2CM 06/23/13 Exc. BCC right jewish/cheek PROSTATE NEEDLE BIOPSY ANY APPROACH 01/27/2017 Transrectal [...] and regular exercise - Patient was counseled [id number] by myself (the billing provider) for the following immunizations and vaccine components, including side effects: TdaP. Patient consents for immunization and understands risks and benefits. A VIS sheet on each immunization was given to the patient. Encouraged to check with insurance regarding Shingrix. Health Promotion: - Eat healthy -- go to [employer].gov to get started - Have a yearly [...] Kandy Narvaez APRN.ANTOINE documented in this encounter [facility] 06-10-2022 History of Presen t illness Narrative Images from the original note were not included. Santana Long MD Interventional Cardiology [facility] [address] [place], [place] [address] [id number] Chief Complaint Patient presents with: Follow Up [...] LESION FACE,EAR,EYEL 1.1-2CM 06/23/13 Exc. BCC right jewish/cheek PROSTATE NEEDLE BIOPSY ANY APPROACH 01/27/2017 Transrectal [...] correct any errors. documented in this encounter [facility] 05-14-2022 Miscellaneous Notes Last office visit: 09/20/21 F/u scheduled: none Luz Mckenzie Ma documented in this encounter [facility] 05-14-2022 Miscellaneous Notes Last office visit: 09/20/21 F/u scheduled: none Luz Mckenzie Ma documented in this encounter [facility] 03-15-2022 Miscellaneous Notes Last office visit: 09/20/21 F/u scheduled: none Luz Mckenzie Ma documented in this encounter [facility] 02-27-2022 Miscellaneous Notes Patient has been identified by name and date of : Yes Patient phones for refill(s): Pending Prescriptions Disp Refills METFORMIN 500 MG TABLET Sig: Take 2 tablets by mouth three times daily. [place]: No Date of last office visit in primary care: 09/20/21 Please advise. Thank you. Deanna Conn LPN documented in this encounter [facility] 01-02-2022 Miscellaneous Notes Patient phones requesting refills as follows: Pending Prescriptions Disp Refills AMLODIPINE 10 MG TABLET 90 tablet 0 Sig: Take 1 tablet by mouth once daily. [place]: No KHOI 09/20/21 NOV no upcoming appt Please review and advise. Abdulaziz Banuelos LPN documented in this encounter [facility] 01-02-2022 Miscellaneous Notes Patient phones requesting refills [...] Abdulaziz Banuelos LPN documented in this encounter [facility] 12-31-2021 Miscellaneous Notes Patient phones requesting refills as follows: Pending Prescriptions Disp Refills AMLODIPINE 10 MG TABLET 90 tablet 0 Sig: Take 1 tablet by mouth once daily. [place]: No KHOI 09/20/21 NOV no upcoming appt Please review and advise. Abdulaziz Banuelos LPN documented in this encounter [facility] documented as of this encounter (statuses as of 12/31/2021) [facility] History of Past illness Narrative* Problem Noted Date Resolved Date Malignant basal cell neoplasm of skin 06/10/2013 12/01/2017 PARALYSIS OF the DIAPHRAGM 10/15/200601/07 Shortness of breath 09/17/2006 12/01/2017 Esophageal reflux 12/01/2017 documented as of this encounter (statuses as of 01/03/2022) [facility] History of Past illness Narrative* Problem Noted Date Resolved Date Malignant basal cell neoplasm of skin 06/10/2013 12/01/2017 PARALYSIS OF the DIAPHRAGM 10/15/200601/07 Shortness of breath 09/17/2006 12/01/2017 Esophageal reflux 12/01/2017 documented as of this encounter (statuses as of 01/03/2022) [facility] [facility] Past illness Narrative* Problem Noted Date Resolved Date Malignant basal cell neoplasm of skin 06/10/2013 12/01/2017 PARALYSIS OF the DIAPHRAGM 10/15/200601/07 Shortness of breath 09/17/2006 12/01/2017 Esophageal reflux 12/01/2017 documented as of this encounter (statuses as of 02/27/2022) [facility] Narrative* Problem Noted Date Resolved Date Malignant basal cell neoplasm of skin 06/10/2013 12/01/2017 PARALYSIS OF the DIAPHRAGM 10/15/200601/07 Shortness of breath 09/17/2006 12/01/2017 Esophageal reflux 12/01/2017 documented as of this encounter (statuses as of 03/15/2022) [facility] Past [facility] Narrative* Problem Noted Date Resolved Date Malignant basal cell neoplasm of skin 06/10/2013 12/01/2017 PARALYSIS OF the DIAPHRAGM 10/15/200601/07 Shortness of breath 09/17/2006 12/01/2017 Esophageal reflux 12/01/2017 documented as of this encounter (statuses as of 05/14/2022) [facility] Narrative* Problem Noted Date Resolved Date Malignant basal cell neoplasm of skin 06/10/2013 12/01/2017 PARALYSIS OF the DIAPHRAGM 10/15/200601/07 Shortness of breath 09/17/2006 12/01/2017 Esophageal reflux 12/01/2017 documented as of this encounter (statuses as of 05/14/2022) [facility] Narrative* Problem Noted Date Resolved Date Malignant basal cell neoplasm of skin 06/10/2013 12/01/2017 PARALYSIS OF the DIAPHRAGM 10/15/200601/07 Shortness of breath 09/17/2006 12/01/2017 Esophageal reflux 12/01/2017 documented as of this encounter (statuses as of 06/10/2022) [facility] Narrative* Problem Noted Date Resolved Date Malignant basal cell neoplasm of skin 06/10/2013 12/01/2017 PARALYSIS OF the DIAPHRAGM 10/15/200601/07 Shortness of breath 09/17/2006 12/01/2017 Esophageal reflux 12/01/2017 documented as of this encounter (statuses as of 07/25/2022) [facility] Narrative* Problem Noted Date Resolved Date Malignant basal cell neoplasm of skin 06/10/2013 12/01/2017 PARALYSIS OF the DIAPHRAGM 10/15/200601/07 Shortness of breath 09/17/2006 12/01/2017 Esophageal reflux 12/01/2017 documented as of this encounter (statuses as of 08/27/2022) [facility] N[facility]* Problem Noted Date Resolved Date Malignant basal cell neoplasm of skin 06/10/2013 12/01/2017 PARALYSIS OF the DIAPHRAGM 10/15/200601/07 Shortness of breath 09/17/2006 12/01/2017 Esophageal reflux 12/01/2017 documented as of this encounter (statuses as of 09/13/2022) [facility] N[facility]ative* Problem Noted Date Resolved Date Malignant basal cell neoplasm of skin 06/10/2013 12/01/2017 PARALYSIS OF the DIAPHRAGM 10/15/200601/07 Shortness of breath 09/17/2006 12/01/2017 Esophageal reflux 12/01/2017 documented as of this encounter (statuses as of 02/26/2023) [facility] Narrative* Problem Noted Date Diagnosed Date Resolved Date Malignant basal cell neoplasm of skin 06/10/2013 12/01/2017 PARALYSIS OF the DIAPHRAGM 10/15/2006 0 01/08/2012 Shortness of breath 09/17/2006 12/02/19 18 Esophageal reflux 12/01/2017 documented as of this encounter (statuses as of 07/29/2023) [facility] N[facility]ative* Problem Noted Date Diagnosed Date Resolved Date Malignant basal cell neoplasm of skin 06/10/2013 12/01/2017 PARALYSIS OF the DIAPHRAGM 10/15/2006 0 01/08/2012 Shortness of breath 09/17/2006 12/02/19 18 Esophageal reflux 12/01/2017 documented as of this encounter (statuses as of 07/30/2023) [facility] Narrative* Problem Noted Date Diagnosed Date Resolved Date Malignant basal cell neoplasm of skin 06/10/2013 12/01/2017 PARALYSIS OF the DIAPHRAGM 10/15/2006 0 01/08/2012 Shortness of breath 09/17/2006 12/02/19 18 Esophageal reflux 12/01/2017 documented as of this encounter (statuses as of 08/15/2023) [facility] N[facility]ative* Problem Noted Date Diagnosed Date Resolved Date Malignant basal cell neoplasm of skin 06/10/2013 12/01/2017 PARALYSIS OF the DIAPHRAGM 10/15/2006 0 01/08/2012 Shortness of breath 09/17/2006 12/02/19 18 Esophageal reflux 12/01/2017 documented as of this encounter (statuses as of 10/27/2023) [facility] Narrative* Problem Noted [...] esophagitis Esophageal reflux [facility] Diagnosis Controlled type 2 diabetes mellitus [...] cause, unspecified site [facility] Diagnosis Essential hypertension, benign- Primary ASHD (arteriosclerotic heart disease) Coronary atherosclerosis of unspecified type of vessel, resighini or graft Presence of bare metal stent [...] astigmatism, left eye [facility] Diagnosis Controlled type 2 diabetes mellitus [...] Coronary atherosclerosis of unspecified type of vessel, resighini or graft Mild intermittent asthma with acute exacerbation Unspecified asthma, with exacerbation Lipoma of torso [facility] Diagnosis Essential hypertension, benign documented in this encounter [facility] note* Diagnosis Controlled type 2 diabetes mellitus without complication, without long-term current use of insulin (HCC)- Primary documented in this encounter [facility] note* Diagnosis ASHD (arteriosclerotic heart disease)- Primary Coronary atherosclerosis of unspecified type of vessel, resighini or graft NSTEMI (non-ST elevated myocardial infarction) [...] Essential hypertension, benign documented in this encounter [facility] Summary Purpose Family History No Family History Records FoundNo Family History Records FoundNo Family History Records FoundNo Family History Records Found Advance Directives Documents on File Type Date Recorded 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 Advance Directive(s) 12/08/2017 6:44 AM Documents on File Type Date Recorded 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 Advance Directive(s) 12/08/2017 6:44 AM Reason for Referral Specialty Diagnoses / Procedures Referred By Ghislaine sanchez Referred To Contact General Surgery Diagnoses Screening for colon cancer Procedures CONSULT TO GENERAL SURGERY OFFICE/OUTPATIENT [facility] MDM 60-74 MINUTES Kandy Narvaez, ASSISTANT PUBLIC DEFENDER.CORRIDOR REDEVELOPMENT MANAGER [address] [place] [address] Referral ID Status Reason Start Date Expiration Date Visits Requested Visits Authorized [id number] Authorized PCP Requested Referral 2 08/27/2023 1 1 Referral ID Status Reason Start Date Expiration Date Visits Requested Visits Authorized [id number] Authorized PCP Requested Referral 02/25/2023 02/25/2024 1 [...] DATE CREATED AUTHOR AUTHOR'S ORGANIZ ATION 03/12/2018 [facility] DATE CREATED AUTHOR AUTHOR'S ORGANIZ ATION 03/12/2018 [facility] DATE CREATED AUTHOR AUTHOR'S ORGANIZ ATION 09/05/2023 [facility] Source Comments (unrecognize d section and content) In the event this informatio n is protected by the Federal Confidentiality of Alcohol and Drug Abuse Patient Records regulations: The Federal rules restrict any use of the information to criminally investigate or prosecute any alcohol or drug abuse patient.[facility] event this information is protected by the Federal Confidentiality of Alcohol and Drug Abuse Patient Records regulations: The Federal rules restrict any use of the information to criminally investigate or prosecute any alcohol or drug abuse patient.[facility] the event this information is protected by the Federal Confidentiality of Alcohol and Drug Abuse Patient Records regulations: The Federal rules restrict any use of the information to criminally investigate or prosecute any alcohol or drug abuse patient.[facility] the event this information is protected by the Federal Confidentiality of Alcohol and Drug Abuse Patient Records regulations: The Federal rules restrict any use of the information to criminally investigate or prosecute any alcohol or drug abuse patient.[facility] the event this information is protected by the Federal Confidentiality of Alcohol and Drug Abuse Patient Records regulations: The Federal rules restrict any use of the information to criminally investigate or prosecute any alcohol or drug abuse patient.[facility] the event this information is protected by the Federal Confidentiality of Alcohol and Drug Abuse Patient Records regulations: The Federal rules restrict any use of the information to criminally investigate or prosecute any alcohol or drug abuse patient.[facility] the event this information is protected by the Federal Confidentiality of Alcohol and Drug Abuse Patient Records regulations: The Federal rules restrict any use of the information to criminally investigate or prosecute any alcohol or drug abuse patient.[facility] the event this information is protected by the Federal Confidentiality of Alcohol and Drug Abuse Patient Records regulations: The Federal rules restrict any use of the information to criminally investigate or prosecute any alcohol or drug abuse patient.[facility] the event this information is protected by the Federal Confidentiality of Alcohol and Drug Abuse Patient Records regulations: The Federal rules restrict any use of the information to criminally investigate or prosecute any alcohol or drug abuse patient.[facility] the event this information is protected by the Federal Confidentiality of Alcohol and Drug Abuse Patient Records regulations: The Federal rules restrict any use of the information to criminally investigate or prosecute any alcohol or drug abuse patient.[facility] the event this information is protected by the Federal Confidentiality of Alcohol and Drug Abuse Patient Records regulations: The Federal rules restrict any use of the information to criminally investigate or prosecute any alcohol or drug abuse patient.[facility] the event this information is protected by the Federal Confidentiality of Alcohol and Drug Abuse Patient Records regulations: The Federal rules restrict any use of the information to criminally investigate or prosecute any alcohol or drug abuse patient.[facility] the event this information is protected by the Federal Confidentiality of Alcohol and Drug Abuse Patient Records regulations: The Federal rules restrict any use of the information to criminally investigate or prosecute any alcohol or drug abuse patient.[facility] the event this information is protected by the Federal Confidentiality of Alcohol and Drug Abuse Patient Records regulations: The Federal rules restrict any use of the information to criminally investigate or prosecute any alcohol or drug abuse patient.[facility] the event this information is protected by the Federal Confidentiality of Alcohol and Drug Abuse Patient Records regulations: The Federal rules restrict any use of the information to criminally investigate or prosecute any alcohol or drug abuse patient.[facility] the event this information is protected by the Federal Confidentiality of Alcohol and Drug Abuse Patient Records regulations: The Federal rules restrict any use of the information to criminally investigate or prosecute any alcohol or drug abuse patient.[facility] the event this information is protected by the Federal Confidentiality of Alcohol and Drug Abuse Patient Records regulations: The Federal rules restrict any use of the information to criminally investigate or prosecute any alcohol or drug abuse patient.[facility] Reason for Visit (unrecogniz ed section and [...] MDM 45-59 MINUTES Odalis Aguilar MD [address] [place] [address] Initial Department Referral ID Status Reason Start Date Expiration Date V isits Requested Visits Authorized [id number] Closed PCP Requested Referral 09/08/2021 09/07/2022 1 1 Reason Comments Physical Reason Comments Diabetes Reason Comments Follow Up Reason Onset Date Comments Refill Request 07/27/2023 Reason Comments Results Reason Comments 6 Month Exam Reason Onset Date Comments Refill Request 10/25/2023 Care Teams (unrecognized sec tion and content) Radiology Equipment Servicer Relationship Specialty Start Date End Date Odalis Aguilar MD [address] [place], [place] [id number] PCP - General Family Practice 06/25/21 Radiology Equipment Servicer Relationship Specialty Start Date End Date Odalis Aguilar MD [address] [place], [place] [phone] PCP - General Family Practice 06/25/21 Radiology Equipment Servicer Relationship Specialty Start Date End Date Odalis Aguilar MD [address] [place], [place] [phone] PCP - General Family Practice 06/25/21 Radiology Equipment Servicer Relationship Specialty Start Date End Date Odalis Aguilar MD [facility] [place], [place] [phone] PCP - General Family Practice 06/25/21 Radiology Equipment Servicer Relationship Specialty Start Date End Date Odalis Aguilar MD [address] [facility] [address] PCP - General Family Medicine 06/25/21 Radiology Equipment Servicer Relationship Specialty Start Date End Date Odalis Aguilar MD [address] [place] [address] PCP - General Family Medicine 06/25/21 Radiology Equipment Servicer Relationship Specialty Start Date End Date Odalsi Aguilar MD [address] [place] [address] PCP - General Family Medicine 06/25/21 Radiology Equipment Servicer Relationship Specialty Start Date End Date Odalis Aguilar MD [address] [place] [address] PCP - General Family Medicine 06/25/21 Radiology Equipment Servicer Relationship Specialty Start Date End Date Odalis Aguilar MD [address] [place] [address] PCP - General Family Medicine 06/25/21 Radiology Equipment Servicer Relationship Specialty Start Date End Date Odalis Aguilar MD [address] [place] [address] PCP - General Family Medicine 06/25/21 Radiology Equipment Servicer Relationship Specialty Start Date End Date Odalis Aguilar MD [address] [place] [address] PCP - General Family Medicine 06/25/21 Radiology Equipment Servicer Relationship Specialty Start Date End Date Odalis Aguilar MD [address] [place] [address] PCP - General Family Medicine 06/25/21 Radiology Equipment Servicer Relationship Specialty Start Date End Date Odalis Aguilar MD [address] [place] [address] PCP - General Family Medicine 06/25/21 FOR [...] BE BASED ON THE PRIMARY CLINICAL RECORDS. [employer] [facility]. provides no warranty or guarantee of the accuracy or completeness of information in this document.
[2023-11-17] MEDS: Insulin Glargine-YFGN 100 UNIT/ML Pen 10 UNIT SC (21:51)
[2023-11-17] MEDS: Insulin Lispro 100 UNIT/ML INSULN.PEN SC (21:51)
[2023-11-17] MEDS: Atorvastatin Calcium 80 MG Tablet PO (21:52)
[2023-11-18] MEDS: 0.9% Normal Saline (1000mL) 1,000 ML 100 ML IV (04:11)
[2023-11-18 04:13] VITALS: BP 146/91; PULSE 68; RESP 18; TEMP 36.6; O2SAT 96
[2023-11-18 06:40] LABS: Absolute Lymphocyte Count 2.17 X10^3/uL (0.83-4.51); Absolute Neutrophil Count 4.3 X10^3/uL (2.0-7.7); Basophil# 0.04 X10^3/uL; Basophil% 0.5 % (0-1); Eosinophil# 0.31 X10^3/uL; Eosinophils% 4.1 % (0-5); Hematocrit 41.9 % (40-54); Hemoglobin 14.2 g/dL (13.0-16.5); Lymphocyte # 2.17 X10^3/ul (0.83-4.51); Mean Corp Hgb Conc 33.9 g/dL (32-36); Mean Corpuscular Hgb 27.3 pg (27.0-32.0); Mean Corpuscular Volume 80.6 fL (80-94); Monocyte# 0.59 X10^3/uL; Monocyte% 7.9 % (0-10); NRBC Flagged by Analyzer 0 % (0-5); Neutrophil # 4.34 X10^3/uL (2.7-7.7); Neutrophil % 58.2 % (47-70); Platelet Count 268 K/mm3 (150-450); RBC Distribution Width CV 12.6 % (11.6-14.6); RBC Distribution Width SD 36.2 fl (35.1-43.9); White Blood Count 7.5 K/mm3 (4.4-11.0)
[2023-11-18 06:41] LABS: Bedside Glucose 187 mg/dL (74-106)
[2023-11-18] MEDS: Insulin Lispro 100 UNIT/ML INSULN.PEN SC ×4 (06:50→21:41)
[2023-11-18 07:47] LABS: Anion Gap 8 (5-15); BUN 20 mg/dL (7-18); Calcium,Total 8.5 mg/dL (8.5-10.1); Chloride 103 mmol/L (98-107); Creatinine, Serum 0.91 mg/dL (0.70-1.30); EST Glomerular Filtration Rate 89 mL/min (>60); Est Glom Filt Rate - Afr Amer 108 mL/min (>60); Estimated Creatinine Clearance 90.12 ml/min; Glucose 204 mg/dL (74-106); Potassium 2.9 mmol/L (3.5-5.1); Sodium Level 137 mmol/L (136-145)
[2023-11-18] MEDS: Potassium Chloride Oral Tablet 20 MEQ PO (08:59)
[2023-11-18] MEDS: amLODIPine 10 MG Tablet PO (08:59)
[2023-11-18] MEDS: Allopurinol 100 MG Tablet PO (08:59)
[2023-11-18] MEDS: Pantoprazole Sodium 40 MG Tablet PO (08:59)
--- NOTE | 2023-11-18 09:31 | PN.HOSP_ITS ---
Reason for Visit Reason for Visit: Hyperglycemia Subjective Subjective Mr. Crystal is a 63-year-old white male who presented to the emergency department at [facility] on 11/17/2023 due to his hyperglycemia. Upon presentation he complained of fatigue, dry mouth, polyuria and polydipsia. He also had some nausea and 1 episode of vomiting. He noted decreased bowel movements and states he had about a 20 pound weight loss. He checked his blood sugar at home and it was read as 500 so he came to the emergency department for further evaluation. The patient reported his last doctors visit he had gone down on metformin because of the GI side effects related to the metformin and the doctor recommended Ozempic but the patient wanted to try weight loss and diet before going on any medications. He has never been on insulin previously. He does have a known history of coronary artery disease, hypertension, and hyperlipidemia. Vital signs on presentation showed temperature of 97, blood pressure 146/103, respiratory rate 16 oxygen saturations were 97% on room air. His CBC was completely unremarkable. A VBG was obtained and his pH was 7.42. His chemistry panel showed hyponatremia with a glucose of 587 indicating pseudohyponatremia, ISHAN with a BUN of 31 and the serum creatinine 1.87 (baseline 0.9-1.0), and a hemoglobin A1c of 11.3. This morning his renal function is improved and his creatinine is normalized. Patient states he is feeling better and would like to go home however we still do not have a handle on his blood pressures or blood sugars yet. I asked him to give me 24 hours with likely discharge tomorrow as long as we can get a little bit better handle on his blood sugar control and have him see the dietitian and learn how to use insulin before he goes home. He stated he understood and was in agreements. Patient states she had been checking his blood sugars intermittently but stopped for a while and then when he reassessed him they were very high. He had been compliant with his metformin at home. He stated he was having significant polyuria and polydipsia. Objective Data Objective Data Vital Signs: Vital Signs Temp Pulse Resp BP Pulse Ox O2 Del Method 97.9 F 68 18 146/91 H 96 Room Air 11/18/23 04:13 11/18/23 04:13 11/18/23 04:13 11/18/23 04:13 11/18/23 04:13 11/18/23 04:13 Oxygen Delivery Method Room Air Weight: 92.561 kg Body Mass Index (BMI) 31.9 Intake & Output: Intake and Output for Last 24 Hours 11/16/23 11/17/23 11/18/23 23:59 23:59 23:59 Intake Total 1610 / 1610 940 / 940 Balance 1610 / 1610 940 / 940 Lab / Micro Data 11/18/23 06:03 11/18/23 06:03 Labs: Laboratory Results - last 24 hr 11/17/23 12:39: POC Glucose > 500 H* 11/17/23 12:55: WBC Cancelled, Corrected WBC Cancelled, RBC Cancelled, Hgb Cancelled, Hct Cancelled, MCV Cancelled, MCH Cancelled, MCHC Cancelled, RDW Std Deviation Cancelled, RDW Coeff of Fantasma Cancelled, Plt Count Cancelled, MPV Cancelled, Immature Gran % (Auto) Cancelled, Neut % (Auto) Cancelled, Lymph % (Auto) Cancelled, [place] % (Auto) Cancelled, Eos % (Auto) Cancelled, Baso % (Auto) Cancelled, Absolute Neuts (auto) Cancelled, Absolute Lymphs (auto) Cancelled, Total Counted Cancelled, Neutrophils % (Manual) Cancelled, Band Neutrophils % Cancelled, Lymphocytes % (Manual) Cancelled, Monocytes % (Manual) Cancelled, Eosinophils % (Manual) Cancelled, Basophils % (Manual) Cancelled, Metamyelocytes % Cancelled, Myelocytes % Cancelled, Promyelocytes % Cancelled, Blast Cells % Cancelled, Plasma Cell % (Manual) Cancelled, Other Cells % Cancelled, Nucleated RBC % Cancelled, Nucleated RBCs/100 WBC Cancelled, Differential Comment Cancelle d, Diff Path Review Cancelled, Hypersegmented Neuts Cancelled, Atypical Lymphocytes Cancelled, Reactive Lymphocytes Cancelled, Smudge Cells Cancelled, Toxic Granulation Cancelled, Toxic Vacuolation Cancelled, Dohle Bodies Cancelled, Norma Rods Cancelled, Platelet Estimate Cancelled, Plt Morphology Co mment Cancelled, RBC Morphology Cancelled 11/17/23 12:55: RBC Morphology Cancelled, Polychromasia Cancelled, Hypochromasia Cancelled, Basophilic Stippling Cancelled, Anisocytosis Cancelled, Microcytosis Cancelled, Macrocytosis Cancelled, Spherocytes Cancelled, Sickle Cells Can celled, Target Cells Cancelled, Tear Drop Cells Cancelled, Ovalocytes Cancelled, Stomatocytes Cancelled, [place] Bodies Cancelled, [place] Cells Cancelled, Bite Cells Cancelled, Crenated Cell Cancelled, Acanthocytes (Spur) Cancelled, Rouleaux Cancelled, Schistocytes Cancelled, Sodium Cancelled, Potassium Cancelled, Chloride Cancelled, Carbon Dioxide Cancelled, Anion Gap Cancelled, BUN Cancelled, Creatinine Cancelled, Estim Creat Clear Calc Cancelled, Est GFR (MDRD) Af Amer Cancelled, Est GFR (MDRD) Non-Af Cancelled, BUN/Creatinine Ratio Cancelled, Glucose Cancelled, Calcium Cancelled, Total Bilirubin Cancelled, AST Cancelled, ALT Cancelled, Alkaline Phosphatase Cancelled, Total Protein Can celled, Albumin Cancelled, Globulin Cancelled, Albumin/Globulin Ratio Cancelled 11/17/23 13:15: WBC 10.8, RBC 5.56, Hgb 15.1, Hct 44.7, MCV 80.4, MCH 27.2, MCHC 33.8, RDW Std Deviation 36.2, RDW Coeff of Fantasma 12.6, Plt Count 314, MPV 11.1, Immature Gran % (Auto) 0.400, Neut % (Auto) 78.2 H, Lymph % (Auto) 13.9 L, [place] % (Auto) 5.8, Eos % (Auto) 1.0, Baso % (Auto) 0.7, Absolute Neuts (auto) 8.4 H, Absolute Lymphs (auto) 1.50, Nucleated RBC % 0, Sodium 131 L, Potassium 4.3, Chloride 92 L, Carbon Dioxide 28.0, Anion Gap 11, BUN 31 H, Creatinine 1.87 H, Estim Creat Clear Calc 43.66, Est GFR (MDRD) Af Amer 47 L, Est GFR (MDRD) Non-Af 39 L, BUN/Creatinine Ratio 16.6, Glucose 587 H*, Hemoglobin A1c 11.3 H, Calcium 9.3, Total Bilirubin 0.70, AST 20, ALT 32, Alkaline Phosphatase 78, Total Protein 7.2, Albumin 3.6, Globulin 3.6, Albumin/Globulin Ratio 1.0 11/17/23 14:05: Urine Color Yellow, Urine Clarity Sl. Cloudy, Urine pH 6.0, Ur Specific [place] 1.010, Urine Protein 30 H, Urine Glucose (UA) 1000 H, Urine Ketones 50 H, Urine Occult Blood Negative, Urine Nitrite Negative, Urine Bilirubin Negative, Urine Urobilinogen Normal, Ur Leukocyte Esterase Negative, Urine RBC 0 SEEN, Urine WBC 0 SEEN, Ur Squamous Epith Cells 0 SEEN, Urine Bacteria 0 SEEN, Urine Mucus 0 SEEN, Acetone Level NEGATIVE 11/17/23 14:35: POC Glucose > 500 H* 11/17/23 16:06: POC Glucose 423 H 11/17/23 17:17: POC Glucose 387 H 11/17/23 19:53: POC Glucose 298 H 11/18/23 06:03: WBC 7.5, RBC 5.20, Hgb 14.2, Hct 41.9, MCV 80.6, MCH 27.3, MCHC 33.9, RDW Std Deviation 36.2, RDW Coeff of Fantasma 12.6, Plt Count 268, MPV 11.0, Immature Gran % (Auto) 0.300, Neut % (Auto) 58.2, Lymph % (Auto) 29.0, [place] % (Auto) 7.9, Eos % (Auto) 4.1, Baso % (Auto) 0.5, Absolute Neuts (auto) 4.3, Absolute Lymphs (auto) 2.17, Nucleated RBC % 0, Sodium 137, Potassium 2.9 L, Chloride 103, Carbon Dioxide 26.0, Anion Gap 8, BUN 20 H, Creatinine 0.91, Estim Creat Clear Calc 90.12, Est GFR (MDRD) Af Amer 108, Est GFR (MDRD) Non-Af 89, BUN/Creatinine Ratio 22.0 H, Glucose 204 H, Calcium 8.5 11/18/23 06:23: POC Glucose 187 H ABG Data ABG results: ABG 11/17/23 13:23 Specimen Type ADRIEN Sample Site Not entered VBG pH 7.42 VBG pO2 67 H VBG HCO3 24 VBG Total CO2 26 VBG O2 Sat (Calc) 93 H VBG Base Excess 0 POC Mix VBG pCO2 Pt Tmp 37.7 L O2 Delivery Device Not entered Rhythm Strip Rhythm Strip: Sinus Rhythm Rate: 62 Ectopy: None Physical Exam Const alert, oriented x3, no apparent distress and well nourished; Negative for average body habitus Constitutional Narrative: Obese, upper middle-aged, white male, lying in bed watching television, appears comfortable nontoxic HEENT head/scalp atraumatic, moist oral mucous membranes and oropharynx normal HEENT Narrative: Mallampati 3, no thrush Head and Scalp: normocephalic Eyes PERRL, EOMs intact bilaterally and conjunctivae normal Eyes Narrative: No scleral icterus Neck supple and no JVD Neck Narrative: Trachea midline, no thyroid enlargement Resp normal respiratory effort, no retractions, no use of accessory muscles and clear to auscultation bilaterally Auscultation: Negative for rales, rhonchi or wheezes Cardio regular rate, regular rhythm, S1 normal heart sound, S2 normal heart sound, no murmurs, no rub, no gallops and no clicks GI normal to inspection, nondistended, normoactive bowel sounds, soft to palpation and non-tender Extremity no clubbing, cyanosis or edema Extremity Narrative: Pedal pulses are 2+ Skin no rashes or lesions noted, no wounds, skin turgor normal, no jaundice, no petec hiae and no mottling Neuro oriented x3, CN's II-XII intact bilaterally, moves all extremities and no focal motor deficits Speech: speech normal Psych affect normal Psych Narrative: Interacts appropriately, eye contact is good Assessment & Plan Assessment/Plan (1) ISHAN (acute kidney injury): (2) Hyperglycemia: (3) Pseudohyponatremia: (4) HTN (hypertension): PLAN: Plan [id number] -Patient markedly hyperglycemic on presentation -Hemoglobin A1c is 11.3 -Only outpatient med is metformin -Continue to hold metformin -Continue basal insulin but increase to 20 units at at bedtime -Add prandial insulin 15 units 3 times daily -Will recommend outpatient follow-up with endocrinology after discharge Hypokalemia -Still low -Magnesium was within normal limits -Discontinue chlorthalidone as this is likely exacerbating his hypokalemia ISHAN -Resolved -Baseline serum creatinine is between 0.9 and 1.0 -Was 1.87 on admission -Will discontinue IV fluids Hypertension -Currently uncontrolled -Continue amlodipine -Will restart losartan since creatinine is normalized -Would recommend complete discontinuation of chlorthalidone -Restart home atenolol -Goal blood pressure is less than 130/80 Hyperlipidemia -Continue home atorvastatin History of gout -Continue home allopurinol GERD -Continue home PPI Obesity -BMI 32 -Recommend weight loss -Complicates treatment, prognosis, outcomes DVT prophylaxis -Start enoxaparin 40 daily CODE STATUS -full code Charges/Coding Visit Charges Inpatient E&M: 69977 Subs Hosp L3
[2023-11-18 09:45] LABS: Magnesium 1.9 mg/dL (1.6-2.6)
[2023-11-18 10:00] VITALS: BP 145/95; PULSE 76; RESP 14; TEMP 36.8; O2SAT 97
--- NOTE | 2023-11-18 10:05 | CASEMGMT ---
VELMA GRIFFIN Assessment: Face to Face with pt for initial transition planning/care coordination assessment. VELMA GRIFFIN introduced self and role at [facility], pt voices understanding and consents to assessment. Pt is A&O x4 and answers all questions appropriately at this time. Pt lying in bed in no distress. Care providers, pharmacy, and demographics verified/updated. Admitting Dx: ISHAN with hyperglycemia PCP:Jeff Specialists: Mercedes cardio Preferred Pharmacy: [facility] Insurance: [employer] Prescription Benefit: yes LNOK: Dilia Crystal, Living Arrangements: Pt lives with in a two story home with a couple of steps to enter. Pt reports he is I in ADL's and denies concerns at home. Transportation: Pt drives self and denies concerns with transportation. DME:BGM with sufficient supply of test strips and lancets HHC/SNF: Denies hx of Pt states no concerns with going home at time of dc. Pt does have nutrition consult pending. Discussed also the diabetic clinic. Pt states he will see how he feels after speaking with castings trimmer as to if he needs further education. Currently, he does not feel he will need additional education. Pt states no further concerns/needs. CM to follow. Advised pt to ask CM if any further question/concerns/needs arise, voices understanding. Pt Goal: Home Plan: Home Gem CARREON CM
[2023-11-18] MEDS: Enoxaparin 40 MG/0.4 ML Syringe SC (10:43)
[2023-11-18] MEDS: Losartan Potassium 100 MG Tablet PO (10:44)
[2023-11-18 11:37] LABS: Bedside Glucose 305 mg/dL (74-106)
[2023-11-18 14:00] VITALS: BP 158/95; PULSE 88; RESP 15; TEMP 37; O2SAT 95
[2023-11-18] MEDS: Aspirin 81 MG TAB.CHEW PO (16:50)
[2023-11-18 17:08] LABS: Bedside Glucose 249 mg/dL (74-106)
[2023-11-18] MEDS: Potassium Chloride Oral Tablet 20 MEQ 40 MEQ PO (17:12)
[2023-11-18] MEDS: Atenolol 100 MG Tablet PO (17:12)
[2023-11-18 20:22] VITALS: BP 162/93; PULSE 63; RESP 16; TEMP 36.6; O2SAT 98
[2023-11-18] MEDS: Insulin Glargine-YFGN 100 UNIT/ML Pen 20 UNIT SC (21:40)
[2023-11-18] MEDS: Atorvastatin Calcium 80 MG Tablet PO (21:40)
[2023-11-18 22:13] LABS: Bedside Glucose 273 mg/dL (74-106)
[2023-11-19 03:22] VITALS: BP 159/89; PULSE 63; RESP 16; TEMP 36.8; O2SAT 98
[2023-11-19 07:11] LABS: Absolute Lymphocyte Count 2.69 X10^3/uL (0.83-4.51); Absolute Neutrophil Count 3.7 X10^3/uL (2.0-7.7); Basophil# 0.05 X10^3/uL; Basophil% 0.7 % (0-1); Eosinophil# 0.27 X10^3/uL; Eosinophils% 3.7 % (0-5); Hematocrit 39.7 % (40-54); Hemoglobin 13.8 g/dL (13.0-16.5); Lymphocyte # 2.69 X10^3/ul (0.83-4.51); Lymphocyte % 36.7 % (19-41); Mean Corp Hgb Conc 34.8 g/dL (32-36); Mean Corpuscular Hgb 28.2 pg (27.0-32.0); Mean Platelet Vol. 10.9 fl (6.2-12.0); Monocyte# 0.65 X10^3/uL; Monocyte% 8.9 % (0-10); NRBC Flagged by Analyzer 0 % (0-5); Neutrophil # 3.65 X10^3/uL (2.7-7.7); Neutrophil % 49.7 % (47-70); Platelet Count 263 K/mm3 (150-450); RBC Distribution Width CV 12.6 % (11.6-14.6); RBC Distribution Width SD 36.5 fl (35.1-43.9); White Blood Count 7.3 K/mm3 (4.4-11.0)
[2023-11-19 07:28] LABS: AST(SGOT) 21 U/L (15-37); Alanine Aminotransfer ALT/SGPT 33 U/L (16-61); Albumin, Serum 3.1 g/dL (3.2-5.0); Alkaline Phosphatase 63 U/L (45-117); Anion Gap 7 (5-15); BUN 15 mg/dL (7-18); BUN/Creat Ratio 14.7 RATIO (10-20); Calcium,Total 8.7 mg/dL (8.5-10.1); Chloride 101 mmol/L (98-107); Creatinine, Serum 1.02 mg/dL (0.70-1.30); EST Glomerular Filtration Rate 78 mL/min (>60); Est Glom Filt Rate - Afr Amer 95 mL/min (>60); Globulin 3.2 g/dL (2.2-4.2); Glucose 201 mg/dL (74-106); Potassium 3.1 mmol/L (3.5-5.1); Protein, Total 6.3 g/dL (6.4-8.2); Sodium Level 136 mmol/L (136-145)
[2023-11-19 08:27] LABS: Bedside Glucose 197 mg/dL (74-106)
[2023-11-19] MEDS: Insulin Lispro 100 UNIT/ML INSULN.PEN 15 UNIT SC ×2 (09:17→12:25)
[2023-11-19] MEDS: Insulin Lispro 100 UNIT/ML INSULN.PEN SC ×2 (09:20→12:26)
[2023-11-19 09:27] VITALS: BP 151/95; PULSE 79; RESP 18; TEMP 36.7; O2SAT 95
[2023-11-19] MEDS: Atenolol 100 MG Tablet PO (09:30)
[2023-11-19] MEDS: Allopurinol 100 MG Tablet PO (09:30)
[2023-11-19] MEDS: Pantoprazole Sodium 40 MG Tablet PO (09:30)
[2023-11-19] MEDS: amLODIPine 10 MG Tablet PO (09:31)
[2023-11-19] MEDS: Enoxaparin 40 MG/0.4 ML Syringe SC (09:36)
[2023-11-19] MEDS: Isosorbide Mononitrate 30 MG Tablet PO (09:36)
[2023-11-19] MEDS: Potassium Chloride Oral Tablet 20 MEQ PO (09:36)
[2023-11-19] MEDS: Potassium Chloride Oral Tablet 20 MEQ 60 MEQ PO (09:37)
--- NOTE | 2023-11-19 11:03 | PCM.DC.SUM ---
Providers Date of Admission: 11/17/23 Date of Discharge: 11/19/23 Primary Care Physician: Dr. Maicol Aguilar MD Reason For Visit: ISHAN WITH HYPERGLYCEMIA Diagnosis Discharge Diagnosis (1) ISHAN (acute kidney injury): Status: Acute Code(s): N17.9 - Acute kidney failure, unspecified (2) Hyperglycemia: Status: Acute Code(s): R73.9 - Hyperglycemia, unspecified (3) Pseudohyponatremia: Status: Acute Code(s): R79.89 - Other specified abnormal findings of blood chemistry (4) HTN (hypertension): Status: Chronic Code(s): I10 - Essential (primary) hypertension Medications at Discharge Home Medications allopurinol 100 mg tablet 100 mg PO DAILYCM Gout 04/18/14 amlodipine 10 mg tablet 10 mg PO DAILY blood pressure 04/18/14 aspirin 81 mg chewable tablet 81 mg PO DAILY heart 03/17/20 atorvastatin 80 mg tablet 80 mg PO DAILY Cholesterol 03/17/20 metformin 500 mg tablet 1,000 mg PO BIDCM 03/17/20 losartan 50 mg tablet 100 mg PO DAILY 11/17/23 omeprazole 40 mg capsule,delayed release 40 mg PO DAILY 11/17/23 atenolol 100 mg tablet 100 mg PO DAILY #30 tabs 11/19/23 insulin glargine-yfgn 100 unit/mL (3 mL) subcutaneous pen 30 unit (0.3 mL) subcut QHS #15 mL 11/19/23 insulin lispro 100 unit/mL subcutaneous pen (Humalog KwikPen (U-100) Insulin) 15 unit (0.15 mL) subcut TIDAC #15 mL 11/19/23 isosorbide mononitrate 30 mg tablet,extended release 24 hr 30 mg PO DAILY #30 tabs 11/19/23 pen needle, diabetic 33 gauge x 1/4 #100 ea 11/19/23 Hospital Course Summary of Care Provided Minutes Spent on Discharge: 38 Hospital Course: Mr. Crystal is a 63-year-old white male who presented to the emergency department at [facility] on 11/17/2023 due to his hyperglycemia. Upon presentation he complained of fatigue, dry mouth, polyuria and polydipsia. He also had some nausea and 1 episode of vomiting. He noted decreased bowel movements and states he had about a 20 pound weight loss. He checked his blood sugar at home and it was read as 500 so he came to the emergency department for further evaluation. The patient reported his last doctors visit he had gone down on metformin because of the GI side effects related to the metformin and the doctor recommended Ozempic but the patient wanted to try weight loss and diet before going on any medications. He has never been on insulin previously. He does have a known history of coronary artery disease, hypertension, and hyperlipidemia. Vital signs on presentation showed temperature of 97, blood pressure 146/103, respiratory rate 16 oxygen saturations were 97% on room air. His CBC was completely unremarkable. A VBG was obtained and his pH was 7.42. His chemistry panel showed hyponatremia with a glucose of 587 indicating pseudohyponatremia, ISHAN with a BUN of 31 and the serum creatinine 1.87 (baseline 0.9-1.0), and a hemoglobin A1c of 11.3. By the following morning after admission his creatinine normalized and with the addition of insulin his blood sugar control had improved however was not optimized. We did alter his insulin regimen and at the time of discharge he was on 30 units of basal insulin at at bedtime as well as 15 units 3 times daily prior to meals. We will keep him on his metformin for now and I have asked him to follow-up with Dr. Vela as an outpatient for ongoing glycemic control. He will have to call and make the appointment after discharge and he acknowledged this and stated he would call. We also changed his blood pressure regimen as he was having chronic issues with hyponatremia. We discontinued his chlorthalidone but maintain his Norvasc, atenolol, and losartan. We did add isosorbide mononitrate 30 mg however he may need up titration of this or addition of other medications to attain his goal blood pressure of 130/80 or less. The patient was educated in injection of insulin and he was seen by the dietitian with regards to his diet pertaining to his diabetes. All of his questions were answered. We did also discontinue his potassium as he would no longer be on his chlorthalidone. He will need a basic metabolic profile in about a week to 10 days to recheck his potassium and renal function. I have also asked him to follow-up with his primary care physician within the next week for blood pressure check to recheck his blood pressure control. We did write for a new glucometer, pen needles, and test strips. At this point have asked the patient to check his blood sugars 4 times a day, once in the morning while he is fasting and once before each meal during the day. He is to keep track of these and take them to his first appointment with Dr. Vela patient was able to be discharged home in stable condition on 11/19/2023. Discharge diagnoses: [id number] Hypokalemia-resolved ISHAN-resolved Hypertension Hyperlipidemia Nonobstructive CAD History of gout GERD Obesity Physical Exam Const alert, oriented x3, no apparent distress, no limitations, healthy appearing and well nourished; Negative for average body habitus Constitutional Narrative: Obese, upper middle-aged, white male, sitting up in a chair at the bedside, nursing at the bedside, appears comfortable nontoxic General Appearance: cooperative, comfortable, well kempt and well developed Orientation / Consciousness: awake, oriented to person, oriented to place and oriented to time Exam Limitations: no limitations Nutritional Appearance: obese HEENT normocephalic, head/scalp atraumatic, hearing grossly normal bilaterally, moist oral mucous membranes and oropharynx normal HEENT Narrative: Mallampati 2, no thrush Eyes PERRL, EOMs intact bilaterally and conjunctivae normal Eyes Narrative: No scleral icterus Neck no lymphadenopathy and supple Neck Narrative: Trachea midline, no thyroid enlargement Resp normal respiratory effort, no retractions, no use of accessory muscles and clear to auscultation bilaterally Auscultation: Negative for rales, rhonchi or wheezes Cardio regular rate, regular rhythm, S1 normal heart sound, S2 normal heart sound, no murmurs, no rub, no gallops and no clicks GI normal to inspection, nondistended, normoactive bowel sounds, soft to palpation and non-tender Extremity no clubbing, cyanosis or edema Extremity Narrative: Pedal pulses are 2+ Skin no rashes or lesions noted, no wounds, skin turgor normal, no jaundice, no petechiae and no mottling Neuro oriented x3, CN's II-XII intact bilaterally, moves all extremities and no focal motor deficits Speech: speech normal Psych affect normal Psych Narrative: Interacts appropriately, eye contact is good Weight / BMI Weight Weight: 92.561 kg Body Mass Index (BMI) 31.9 ABG / Lab / Microbiology Data 11/19/23 05:05 11/19/23 05:05 Laboratory: Laboratory Results - last 24 hr 11/18/23 10:50: POC Glucose 305 H 11/18/23 16:42: POC Glucose 249 H 11/18/23 21:40: POC Glucose 273 H 11/19/23 05:05: WBC 7.3, RBC 4.90, Hgb 13.8, Hct 39.7 L, MCV 81.0, MCH 28.2, MCHC 34.8, RDW Std Deviation 36.5, RDW Coeff of Fantasma 12.6, Plt Count 263, MPV 10.9, Immature Gran % (Auto) 0.300, Neut % (Auto) 49.7, Lymph % (Auto) 36.7, [place] % (Auto) 8.9, Eos % (Auto) 3.7, Baso % (Auto) 0.7, Absolute Neuts (auto) 3.7, Absolute Lymphs (auto) 2.69, Nucleated RBC % 0, Sodium 136, Potassium 3.1 L, Chloride 101, Carbon Dioxide 28.0, Anion Gap 7, BUN 15, Creatinine 1.02, Estim Creat Clear Calc 80.40, Est GFR (MDRD) Af Amer 95, Est GFR (MDRD) Non-Af 78, BUN/Creatinine Ratio 14.7, Glucose 201 H, Calcium 8.7, Total Bilirubin 0.50, AST 21, ALT 33, Alkaline Phosphatase 63, Total Protein 6.3 L, Albumin 3.1 L, Globulin 3.2, Albumin/Globulin Ratio 1.0 11/19/23 08:01: POC Glucose 197 H D/C Instructions Discharge Diet: Low fat / Low cholesterol and 2000 Calorie Control Diet Discharge Activity: Return to Normal Activity Meaningful Use Info Meaningful Use Diagnoses (Choose all that apply): None applicable Discharge Plan Admission Admit Date/Time: 11/17/23 16:13 Primary Reason for Your Visit: severe hyperglycemia Attending Provider: Luz Castellanos Primary Care Provider: Maicol Aguilar Consulting Providers: Derrick Moore Instructions Additional Instructions / Restrictions: 1. Please check your blood sugars in the morning when you are awake and before each meal until you follow-up with endocrinology 2. Please call endocrinology (Dr. Parsons) office tonight or tomorrow and tell them you are in the hospital and that you need a follow-up they should have your name and schedule you 3. Please follow-up within the next week to get a blood pressure check with medication changes 4. Please call your primary care physician and ask that a basic metabolic profile be performed within the next 7 to 10 days Discharge Orders/Prescriptions Prescriptions: New atenolol 100 mg Tablet 100 mg PO DAILY Qty: 30 2RF insulin glargine-yfgn 100 unit/mL (3 mL) Insulin Pen 30 unit subcut QHS Qty: 15 1RF insulin lispro [Humalog KwikPen Insulin] 100 unit/mL Insulin Pen 15 unit subcut TIDAC Qty: 15 2RF isosorbide mononitrate 30 mg Tablet Extended Release 24 Hr 30 mg PO DAILY Qty: 30 2RF (DME) pen needle, diabetic 33 gauge x 1/4 needle See Rx Instructions .Route Qty: 100 2RF Rx Instructions: As directed Continued allopurinol 100 MG tablet 100 mg PO DAILYCM amlodipine 10 MG tablet 10 mg PO DAILY atorvastatin 80 mg tablet 80 mg PO DAILY Rx Instructions: takes in evening aspirin 81 MG tablet,chewable 81 mg PO DAILY Rx Instructions: takes in the evening metformin 500 MG tablet 1,000 mg PO BIDCM omeprazole 40 mg capsule,delayed release(DR/EC) 40 mg PO DAILY losartan 50 mg tablet 100 mg PO DAILY Discontinued atenolol-chlorthalidone 100-25 mg tablet 1 tab PO DAILY Patient Comments: TAKE 1 TABLET BY MOUTH EVERY DAY potassium chloride [Klor-Con M20] 20 mEq tablet,ER particles/crystals 20 meq PO DAILY Other Ambulatory Orders: Glucometer (Routine) Timeframe: 1 Day Location: Determined by Patient Ordered By: Dr. Luz Castellanos Referrals / Follow Up: Juan Daniel Vela MD [Med Staff - Courtesy Staff] - (Please call Dr. Vela's office tomorrow to set up appointment. Dr. Vela likes the patient to make their appointments. [phone]) Maicol Aguilar MD [Primary Care Provider] - 11/26/23 9:00 am (Please have Dr. Aguilar do a referral for the patient to see Dr. Vela. ) Disposition Disposition (needs filled in before D/C Order can be placed): Home, Self Care Charges/Coding Visit Charges Inpatient E&M: 18128 Disch Hosp >30min
--- NOTE | 2023-11-19 11:33 | PHA.DC_ITS ---
Pharmacy [facility] Pharmacy Service has performed discharge medication reconciliation and counseling for this patient. 1. ISOSORBIDE MONONITRATE 30MG PO DAILY 2. INSULIN GLARGINE 30UNITS SC QHS 3. INSULIN LISPRO 15UNITS SC TIDAC The patient's discharge medication list was reviewed for discrepancies and discrepancies were resolved. The patient was counseled on the following discharge medications and changes in medications for homegoing were reviewed. The Reason for Use, instructions for use, and potential side effects were reviewed for all new medications. The patient's questions regarding all of their medications were answered. The patient was able to verbally demonstrate an understanding of their discharge medications. Medications at Discharge Home Medications allopurinol 100 mg tablet 100 mg PO DAILYCM Gout 04/18/14 amlodipine 10 mg tablet 10 mg PO DAILY blood pressure 04/18/14 aspirin 81 mg chewable tablet 81 mg PO DAILY heart 03/17/20 atorvastatin 80 mg tablet 80 mg PO DAILY Cholesterol 03/17/20 metformin 500 mg tablet 1,000 mg PO BIDCM 03/17/20 losartan 50 mg tablet 100 mg PO DAILY 11/17/23 omeprazole 40 mg capsule,delayed release 40 mg PO DAILY 11/17/23 atenolol 100 mg tablet 100 mg PO DAILY #30 tabs 11/19/23 insulin glargine-yfgn 100 unit/mL (3 mL) subcutaneous pen 30 unit (0.3 mL) subcut QHS #15 mL 11/19/23 insulin lispro 100 unit/mL subcutaneous pen (Humalog KwikPen (U-100) Insulin) 15 unit (0.15 mL) subcut TIDAC #15 mL 11/19/23 isosorbide mononitrate 30 mg tablet,extended release 24 hr 30 mg PO DAILY #30 tabs 11/19/23 pen needle, diabetic 33 gauge x 1/4 #100 ea 11/19/23
--- NOTE | 2023-11-19 11:51 | CASEMGMT ---
Social Work SW met with pt to discuss advance directives.? Pt confirms he has completed a living will and health care POA naming his Dilia Crystal.? Pt notified that documents are not on file at [facility] and SW requested they be brought in for scanning into the EMR.? NIKKI Stover
[2023-11-19 12:01] LABS: Bedside Glucose 276 mg/dL (74-106)
--- NOTE | 2023-11-19 12:52 | CASEMGMT ---
RN CM into pt room, pt nurse reviewing dc instructions, pt given rx for BGM. Pt states he feels comfortable with his management of DM. Denies any homegoing needs.
[2023-11-19 13:30] VITALS: BP 113/84; PULSE 58; RESP 16; TEMP 36.5; O2SAT 97
== END 2023-11-19 14:15 | disposition home or self-care (01) | DRG 638 ==
LOC: ED 15:02 → MS3 17:10
PROVIDERS: Admitting Provider Family Medicine; Emergency Provider Emergency Medicine; PCP Family Medicine; Visit Provider Internal Medicine
DX: E11.65 Type 2 diabetes mellitus with hyperglycemia (principal); N17.9 Acute kidney failure, unspecified; Z79.4 Long term (current) use of insulin; I10 Essential (primary) hypertension; K21.9 Gastro-esophageal reflux disease without esophagitis; I25.10 Atherosclerotic heart disease of native coronary artery without angina pectoris; E78.5 Hyperlipidemia, unspecified; E87.6 Hypokalemia; I25.2 Old myocardial infarction; M10.9 Gout, unspecified; E66.9 Obesity, unspecified; Z68.32 Body mass index [BMI] 32.0-32.9, adult; Z95.5 Presence of coronary angioplasty implant and graft; Z79.82 Long term (current) use of aspirin; Z79.84 Long term (current) use of oral hypoglycemic drugs; Z79.899 Other long term (current) drug therapy; Z87.891 Personal history of nicotine dependence
CPT/HCPCS: 36415; 80048; 80053; 81001; 82009; 82803; 82962; 83036; 83735; 85025; 93005; 97802; 99283; J7030